=== PATIENT | female | born 1940 | race Caucasian/White ===

== ENCOUNTER → 2017-04-10 11:17 | Outpatient (CLI) | payer OTHER, SELFPAY ==
[2017-04-10 16:24] LABS: AST(SGOT) 17 U/L (15-37); Alanine Aminotransfer ALT/SGPT 29 U/L (13-56); Albumin, Serum 3.5 g/dL (3.2-5.0); Alkaline Phosphatase 83 U/L (45-117); Anion Gap 10 (5-15); BUN 21 mg/dL (7-18); BUN/Creat Ratio 26.6 RATIO (10-20); Calcium,Total 8.9 mg/dL (8.5-10.1); Chloride 105 mmol/L (98-107); Cholesterol 170 mg/dL (200); Creatinine, Serum 0.79 mg/dL (0.55-1.02); EST Glomerular Filtration Rate 75 mL/min (>60); Est Glom Filt Rate - Afr Amer 90 mL/min (>60); Globulin 3.9 g/dL (2.2-4.2); Glucose 153 mg/dL (74-106); High Density Lipoprotein 46 mg/dL; Protein, Total 7.4 g/dL (6.4-8.2); Sodium Level 142 mmol/L (136-145); Triglycerides 133 mg/dL; Very Low Density Lipoprotein 27 mg/dL (5-40)
[2017-04-10 16:30] LABS: Microalbumin,Random Urine 71.7 mg/L (NO RANGE EST.); Microalbumin:Creatinine Ratio 113.6 mg/g CRE (<30 mg/g CRE)
== END ==
PROVIDERS: Family Provider Family Medicine; PCP Family Medicine; Visit Provider Family Medicine
DX: E11.9 Type 2 diabetes mellitus without complications (principal)
CPT/HCPCS: 36415; 80048; 80061; 80076; 82043; 82570

== ENCOUNTER → 2017-06-27 10:30 | Outpatient (CLI) | payer OTHER, SELFPAY ==
--- NOTE | 2017-06-27 10:32 | BI_ITS ---
MAMMOGRAPHY - BILATERAL SCREENING 3-D PIERRE SYNTHESIS REASON FOR EXAM: Female, 76 years old. Bilateral Screening 3-D tomosynthesis PERTINENT HISTORY: Mother with breast cancer at age 58. Maternal grandmother with breast cancer in her 80s. Niece with breast cancer in her 50s.. TECHNIQUE: 2-D mammograms and 3-D Pierre synthesis of the breast (s) were performed. CAD was performed. COMPARISON: February 27, 2016. FINDINGS: The breast composition is heterogeneously dense that can obscure small breast masses. No dense spiculated masses or suspicious microcalcifications are identified. No architectural distortion is identified. There is no skin thickening or retraction. There has been no significant change since the prior study. BI/SCREENING MAMM (CAD), BILAT IMPRESSION: No mammographic signs of malignancy. Routine yearly mammograms recommended. ASSESSMENT CATEGORY: BIRADS Category 1: Negative. A letter regarding these results will be sent to the patient by the facility within 30 days. FOLLOW UP RECOMMENDATION: Yearly follow up mammogram recommended. (A) Approximately 10% of breast cancers are not detected by mammography. A normal mammogram should not delay biopsy of a clinically suspicious abnormality. Electronically Signed: Manuelito Camarena MD at 12:17 EDT , Service support ,
== END ==
PROVIDERS: Family Provider Family Medicine; PCP Family Medicine; Visit Provider Family Medicine
DX: Z12.31 Encounter for screening mammogram for malignant neoplasm of breast (principal)
CPT/HCPCS: 77063; 77067

== ENCOUNTER 2017-06-30 07:50 | Day surgery (SDC) | payer OTHER, SELFPAY ==
--- NOTE | 2017-06-30 | IMM_PTH ---
PATIENT: VIPUL WEBER LOC: EN U#:[id number] AGE/SX: 76/F ROOM: RE06/30/[address]: Dr. Ann Barry MD : 1940 BED: DIS: 06/30/2017 SPEC #: [id number] RECD: 07/02/17 11:20 STATUS: WILL RERosa M #: [id number] RAMIRO: 06/30/17 00:[address]: Ann Barry DEPT: IMMUNOHISTOCHEMISTRY RECD BY: Rhina Chavira ENTERED: 07/02/17 11:21 SP TYPE: IMMUNO OTHR DR: Dr. Elvin Scott MD Tissues: A - Pylorus B - Stomach, NOS Procedures: H Pylori (initial) PHYSICIAN & INSTITUTION [place] [id number] SPECIMEN INFORMATION: Tissue Source: A ? 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 Localization is made via biotin free immunoperoxidase method. Appropriate controls are performed and reacted as expected. Results on target cell population are indicated in the following table: RESULTS: ANTIBODY / CLONE RESULT Block A H Pylori (polyclonal) negative Block B H Pylori (polyclonal) negative These tests were developed and their performance characteristics determined by [facility]. They may not have been cleared or approved by the U.S. Food and Drug Administration. The FDA has determined that such clearance or approval is not necessary. INTERPRETATION: A. Pylorus lesion, biopsy: Negative for Helicobacter pylori organisms. B. Antrum, biopsy: Negative for Helicobacter pylori organisms. SJ:fernando 07/03/17
[2017-06-30 08:13] VITALS: BP 162/73; PULSE 72; RESP 16; TEMP 36.3; O2SAT 99; BMI 35.3
[2017-06-30 08:25] LABS: Bedside Glucose 196 mg/dL (70-110)
--- NOTE | 2017-06-30 09:00 | EGD_PTH ---
PATIENT: VIPUL WEBER LOC: EN U#:[id number] AGE/SX: 76/F ROOM: RE06/30/[address]: Dr. Ann Brary MD : 1940 BED: DIS: 06/30/2017 SPEC #: [id number] RECD: 06/30/17 15:19 STATUS: WILL EBEN #: [id number] RAMIRO: 06/30/17 09:[address]: Ann Barry DEPT: SURGICAL PATHOLOGY RECD BY: Erlin Velazquez ENTERED: 07/01/17 08:09 SP TYPE: EGD BIOPSY OT DR: Dr. 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 Pylori and path, C - Gastric Polyp 1 cm, D ? GE junction biopsy MICROSCOPIC DIAGNOSIS A. Pylorus, biopsy: Mild gastritis. B. Antrum, biopsy: Mild gastritis. C. Gastric polyp, biopsy: Consistent with fundic gland polyp. D. GE junction, biopsy: Fragments of gastroesophageal mucosa with mild chronic inflammation. Intestinal metaplasia (goblet cell metaplasia) is not identified. See comment. SJ:fernando 07/02/17 COMMENT A & B. The results of immunohistochemistry for Helicobacter pylori will be reported separately ([id number]). D. The specimen predominantly consists of gastric mucosa. Alcian blue/PAS stain with matched control is used in the evaluation of the specimen. MICROSCOPIC DESCRIPTION Slides are reviewed. A & B. The specimen shows fragments of gastric mucosa with chronic inflammatory cell infiltrates in the lamina propria consisting of lymphocytes and plasma cells, consistent with mild chronic gastritis. GROSS DESCRIPTION A - Received in fixative is one container labeled with the patient's name and designated pylorus. The specimen consists of one irregular fragment of light dinh soft tissue that measures 0.3 x 0.2 x 0.1 cm. The specimen is totally submitted in one cassette. B - Received in fixative is one container labeled with the patient's name and designated antrum. The specimen consists of one irregular fragment of light dinh soft tissue that measures 0.5 x 0.3 x 0.1 cm. The specimen is totally submitted in one cassette. C - Received in fixative is one container labeled with the patient's name and designated gastric polyp. The specimen consists of a piece of dinh-pink polyp measuring 0.5 x 0.5 x 0.2 cm. The specimen is totally submitted in one cassette. D - Received in fixative is one container labeled with the patient's name and designated GE junction. The specimen consists of two irregular fragments of dinh soft tissue that in aggregate measure 0.5 x 0.5 x 0.1 cm. The specimen is totally submitted in one cassette. / RY:rg 07/01/17 TC:3 CPT: 79207 x4, 40721
[2017-06-30 09:50] VITALS: BP 134/49; BP 162/73; PULSE 69; RESP 17; TEMP 35.9; O2SAT 98
[2017-06-30 09:55] VITALS: BP 142/58; BP 162/73; PULSE 69; RESP 16; O2SAT 99
[2017-06-30 10:00] VITALS: BP 156/49; BP 162/73; PULSE 67; RESP 16; O2SAT 97
[2017-06-30 10:06] VITALS: BP 162/73; BP 171/59; PULSE 67; RESP 16; TEMP 35.9; O2SAT 96
--- NOTE | 2017-06-30 10:07 | OP.PCM_ITS ---
Report of Operation Date of Procedure: 06/30/17 Pre-Operative Diagnosis: GERD, hx barretts, epigastric pain, hx of colon polyp Post-Operative Diagnosis: inflammation/lesion at pylorus, gastritis/GERD, gastric polyps, HH, extensive diverticulosis throughout the colon, circum. ext hemorrhoid, internal at 10:00 (left) grade I Surgery/Procedure Performed:: EGD with snare polypectomy, cold forceps biopsy, colonoscopy Type of Anesthesia:: MAC Anesthesiologist: Noah Bacon Specimen's removed: 1. inflammation/Lesion at pylorus, 2. Antral biopsy, 3. Gastric polyp anterior stomach body, 4. GE junction Estimated Blood Loss (mL): Minimal Description of Procedure: Procedure: EGD with snare polypectomy After obtaining informed consent, the endoscope was passed under direct visualization. Throughout the procedure, patient's blood pressure, pulse, oxygen saturations were monitored continuously by anesthesia. The endoscope was introduced through the mouth and advanced to the 2nd part of the duodenum. The upper GI endoscopy was accomplished without difficulty. Patient tolerated procedure well. Findings: Small hiatal hernia was present. Irritated inflamed lesion noted at the pylorus this was biopsied with cold forceps biopsies. Patient also had erythematous mucosa found gastric antrum. There also multiple fundic gland gastric polyps and one on the anterior body which was not as smooth and conformed as the other polyps and was removed with snare biopsy. Patient's GE junction only had mild change in a couple biopsies were taken of this area due to previous history of Odell's. There was noted to be bile reflux in the stomach. Biopsies were taken with cold biopsy for histology. Estimated blood loss was minimal. The duodenum was normal. Impression: 1. Small hiatal hernia 2. Erythematous mucosa in the antrum and inflammation/lesion at pylorus. Biopsied. 3. Gastric polyps. Polypectomy of 1. 4. GERD/history of Odell's per previous scope notes; multiple biopsy at the GE junction 5. Normal examined duodenum Recommendations: Await biopsies Continue omeprazole 40 mg twice daily Will start Carafate 1 g p.o. 4 times daily 1 hour before meals and at bedtime ? 1 month Procedure: Colonoscopy After reviewing the risks benefits, the patient was deemed in satisfactory condition to undergo procedure. After obtaining informed consent, the scope was passed under direct visualization. Throughout the procedure, the patient's blood pressure pulse and position saturations were monitored continuously anesthesia. The colonoscope was introduced through the anus and advanced to the cecum, identified by the appendiceal orifice, IC valve and transillumination. The colonoscopy was performed without difficulty. The patient tolerated procedure well. Quality of bowel prep was adequate. Findings: The perianal and digital rectal exam showed circumferential external hemorrhoids with 1 internal hemorrhoid at 10:00 which was a grade 1 Extensive diverticulosis was noted throughout the colon otherwise the colon ( entire examined portion) appeared normal. Retroflexed view of the distal rectum and anal verge small internal hemorrhoid grade 1. Impression: 1. Diverticulosis throughout the colon 2. Vaginal external hemorrhoids, mild internal hemorrhoid at 10:00 (left) Recommendations: Repeat colonoscopy in 7 years for screening purposes to the extensive diverticulosis as well as adequate prep - Complications none
[2017-06-30 10:20] VITALS: BP 162/73
== END 2017-06-30 10:49 | disposition home or self-care (01) ==
LOC: EN 07:51 → AC 07:53
PROVIDERS: Family Provider Family Medicine; PCP Family Medicine; Visit Provider Surgery
PROC: 0DJD8ZZ Inspection of Lower Intestinal Tract, Via Natural or Artificial Opening Endoscopic (ICD-10-PCS; CPT 45378; principal; 2017-06-30 08:55)
DX: Z12.11 Encounter for screening for malignant neoplasm of colon (principal); K29.70 Gastritis, unspecified, without bleeding; K31.7 Polyp of stomach and duodenum; K44.9 Diaphragmatic hernia without obstruction or gangrene; K57.30 Diverticulosis of large intestine without perforation or abscess without bleeding; K64.0 First degree hemorrhoids; K64.4 Residual hemorrhoidal skin tags; K21.9 Gastro-esophageal reflux disease without esophagitis; Z87.19 Personal history of other diseases of the digestive system; E11.9 Type 2 diabetes mellitus without complications; I10 Essential (primary) hypertension; G47.33 Obstructive sleep apnea (adult) (pediatric); Z87.891 Personal history of nicotine dependence; Z79.84 Long term (current) use of oral hypoglycemic drugs; Z79.899 Other long term (current) drug therapy
CPT/HCPCS: 44377; 45378; 82962; 88305; 88313; 88342; J7120

== ENCOUNTER → 2017-10-13 11:12 | Outpatient (CLI) | payer OTHER, SELFPAY ==
[2017-10-13 12:56] LABS: Microalbumin,Random Urine 70.9 mg/L (NO RANGE EST.); Microalbumin:Creatinine Ratio 110.4 mg/g CRE (<30 mg/g CRE)
[2017-10-13 13:20] LABS: AST(SGOT) 14 U/L (15-37); Alanine Aminotransfer ALT/SGPT 24 U/L (13-56); Albumin, Serum 3.5 g/dL (3.2-5.0); Alkaline Phosphatase 82 U/L (45-117); Anion Gap 8 (5-15); BUN 15 mg/dL (7-18); BUN/Creat Ratio 17.8 RATIO (10-20); Bilirubin, Direct 0.11 mg/dL (0.00-0.30); Chloride 106 mmol/L (98-107); Cholesterol 173 mg/dL (200); Creatinine, Serum 0.84 mg/dL (0.55-1.02); EST Glomerular Filtration Rate 69 mL/min (>60); Est Glom Filt Rate - Afr Amer 84 mL/min (>60); Globulin 4.2 g/dL (2.2-4.2); Glucose 128 mg/dL (74-106); High Density Lipoprotein 47 mg/dL; Potassium 3.6 mmol/L (3.5-5.1); Protein, Total 7.7 g/dL (6.4-8.2); Sodium Level 142 mmol/L (136-145); Triglycerides 186 mg/dL; Very Low Density Lipoprotein 37 mg/dL (5-40)
== END ==
PROVIDERS: Family Provider Family Medicine; PCP Family Medicine; Visit Provider Family Medicine
DX: E11.9 Type 2 diabetes mellitus without complications (principal)
CPT/HCPCS: 36415; 80048; 80061; 80076; 82043; 82570

== ENCOUNTER → 2017-11-06 13:58 | Outpatient (CLI) | payer OTHER, SELFPAY | PROVIDERS: Family Provider Family Medicine; PCP Family Medicine; Visit Provider Family Medicine | DX: M79.675 Pain in left toe(s) (principal) | CPT/HCPCS: 73660 ==

== ENCOUNTER → 2018-01-14 15:59 | Outpatient (CLI) | payer OTHER, SELFPAY ==
[2018-01-14 18:05] LABS: AST(SGOT) 12 U/L (15-37); Alanine Aminotransfer ALT/SGPT 29 U/L (13-56); Albumin, Serum 3.4 g/dL (3.2-5.0); Alkaline Phosphatase 106 U/L (45-117); Anion Gap 8 (5-15); BUN 21 mg/dL (7-18); BUN/Creat Ratio 25.1 RATIO (10-20); Bilirubin, Direct 0.06 mg/dL (0.00-0.30); Calcium,Total 8.5 mg/dL (8.5-10.1); Chloride 107 mmol/L (98-107); Cholesterol 153 mg/dL (200); Creatinine, Serum 0.84 mg/dL (0.55-1.02); EST Glomerular Filtration Rate 70 mL/min (>60); Est Glom Filt Rate - Afr Amer 85 mL/min (>60); Globulin 3.7 g/dL (2.2-4.2); Glucose 148 mg/dL (74-106); High Density Lipoprotein 45 mg/dL; Potassium 3.9 mmol/L (3.5-5.1); Protein, Total 7.1 g/dL (6.4-8.2); Sodium Level 143 mmol/L (136-145); Triglycerides 183 mg/dL; Very Low Density Lipoprotein 37 mg/dL (5-40)
[2018-01-14 18:10] LABS: Vitamin D,25 Hydroxy 13.6 ng/mL (29.95-100.01)
[2018-01-14 18:26] LABS: Microalbumin:Creatinine Ratio 263.2 mg/g CRE (<30 mg/g CRE)
== END ==
PROVIDERS: Family Provider Family Medicine; PCP Family Medicine; Visit Provider Family Medicine
DX: E11.9 Type 2 diabetes mellitus without complications (principal); E55.9 Vitamin D deficiency, unspecified
CPT/HCPCS: 36415; 80048; 80061; 80076; 82043; 82306; 82570

== ENCOUNTER → 2018-07-08 16:19 | Outpatient (CLI) | payer OTHER, SELFPAY ==
[2018-07-08 18:39] LABS: ALB/GLOB Ratio 1.2 RATIO (0.9-2.4); AST(SGOT) 14 U/L (15-37); Alanine Aminotransfer ALT/SGPT 23 U/L (13-56); Albumin, Serum 3.8 g/dL (3.2-5.0); Alkaline Phosphatase 99 U/L (45-117); Anion Gap 6 (5-15); BUN 19 mg/dL (7-18); BUN/Creat Ratio 21.1 RATIO (10-20); Calcium,Total 9.1 mg/dL (8.5-10.1); Chloride 107 mmol/L (98-107); EST Glomerular Filtration Rate 64 mL/min (>60); Est Glom Filt Rate - Afr Amer 78 mL/min (>60); Globulin 3.2 g/dL (2.2-4.2); Glucose 126 mg/dL (74-106); Potassium 4.3 mmol/L (3.5-5.1); Sodium Level 142 mmol/L (136-145)
== END ==
PROVIDERS: Family Provider Family Medicine; PCP Family Medicine; Referring Provider Family Medicine; Visit Provider Family Medicine
DX: E11.9 Type 2 diabetes mellitus without complications (principal)
CPT/HCPCS: 36415; 80053

== ENCOUNTER → 2018-07-13 12:21 | Outpatient (CLI) | payer OTHER, SELFPAY ==
--- NOTE | 2018-07-13 12:22 | BI_ITS ---
MAMMOGRAPHY - BILATERAL SCREENING REASON FOR EXAM: Female, 78 years old. Routine annual screening examination. PERTINENT HISTORY: Mother with breast cancer. Grandmother with breast cancer. TECHNIQUE: Digital bilateral breast joann (3D mammographic acquisition) in the CC and MLO projections. 2-D mediolateral oblique (MLO) and craniocaudad (CC) views of both breasts were obtained. CAD: Full Field Digital Mammography with Computer Added Detection was performed. COMPARISON: Comparison is made with prior study dated June 27, 2017 and February 27, 2016. FINDINGS: Breast Composition: The breasts are heterogeneously dense, which may obscure small masses. There are no dominant masses or suspicious calcifications. No other significant abnormalities are identified. There has been no significant change since the prior study. BI/SCREENING MAMM (CAD), BILAT IMPRESSION: Stable bilateral screening mammogram. Yearly follow-up mammogram recommended. (A) ASSESSMENT CATEGORY: BIRADS Category 1: Negative. A letter regarding these results will be sent to the patient by the facility within 30 days. Approximately 10% of breast cancers are not detected by mammography. A normal mammogram should not delay biopsy of a clinically suspicious abnormality. [id number] Electronically Signed: Johnathan Jacob, at 13:52 EDT , Service support ,
== END ==
PROVIDERS: Family Provider Family Medicine; PCP Family Medicine; Referring Provider Family Medicine; Visit Provider Family Medicine
DX: Z12.31 Encounter for screening mammogram for malignant neoplasm of breast (principal)
CPT/HCPCS: 77062; 77067; G0279

== ENCOUNTER → 2018-10-23 | Outpatient (CLI) | payer OTHER, SELFPAY ==
[2018-10-23 16:28] LABS: Anion Gap 8 (5-15); BUN 21 mg/dL (7-18); BUN/Creat Ratio 19.8 RATIO (10-20); Calcium,Total 8.8 mg/dL (8.5-10.1); Chloride 107 mmol/L (98-107); Creatinine, Serum 1.06 mg/dL (0.55-1.02); EST Glomerular Filtration Rate 53 mL/min (>60); Est Glom Filt Rate - Afr Amer 64 mL/min (>60); Glucose 197 mg/dL (74-106); Potassium 3.3 mmol/L (3.5-5.1); Sodium Level 142 mmol/L (136-145)
== END | disposition home or self-care (01) ==
LOC: MFPLAB 14:31
PROVIDERS: Family Provider Family Medicine; PCP Family Medicine; Referring Provider Family Medicine; Visit Provider Family Medicine
DX: E11.9 Type 2 diabetes mellitus without complications (principal)
CPT/HCPCS: 36415; 80048

== ENCOUNTER → 2019-01-14 | Outpatient (CLI) | payer OTHER, SELFPAY ==
[2019-01-14 12:47] LABS: Anion Gap 7 (5-15); BUN 20 mg/dL (7-18); BUN/Creat Ratio 26.1 RATIO (10-20); Calcium,Total 8.9 mg/dL (8.5-10.1); Chloride 107 mmol/L (98-107); Creatinine, Serum 0.76 mg/dL (0.55-1.02); EST Glomerular Filtration Rate 77 mL/min (>60); Est Glom Filt Rate - Afr Amer 93 mL/min (>60); Glucose 156 mg/dL (74-106); Potassium 3.5 mmol/L (3.5-5.1); Sodium Level 141 mmol/L (136-145)
== END | disposition home or self-care (01) ==
LOC: MFPLAB 11:01
PROVIDERS: Family Provider Family Medicine; PCP Family Medicine; Referring Provider Family Medicine; Visit Provider Family Medicine
DX: E11.9 Type 2 diabetes mellitus without complications (principal)
CPT/HCPCS: 36415; 80048

== ENCOUNTER → 2019-07-22 11:31 | Outpatient (CLI) | payer OTHER, SELFPAY ==
[2019-07-22 15:54] LABS: Anion Gap 6 (5-15); BUN 20 mg/dL (7-18); BUN/Creat Ratio 24.8 RATIO (10-20); Calcium,Total 8.7 mg/dL (8.5-10.1); Chloride 106 mmol/L (98-107); Cholesterol 182 mg/dL (200); Creatinine, Serum 0.81 mg/dL (0.55-1.02); EST Glomerular Filtration Rate 72 mL/min (>60); Est Glom Filt Rate - Afr Amer 88 mL/min (>60); Glucose 175 mg/dL (74-106); High Density Lipoprotein 45 mg/dL; Potassium 3.5 mmol/L (3.5-5.1); Sodium Level 139 mmol/L (136-145); Triglycerides 174 mg/dL; Very Low Density Lipoprotein 35 mg/dL (5-40)
== END ==
PROVIDERS: PCP Family Medicine; Referring Provider Family Medicine; Visit Provider Family Medicine
DX: E11.9 Type 2 diabetes mellitus without complications (principal)
CPT/HCPCS: 36415; 80048; 80061

== ENCOUNTER → 2019-07-29 12:19 | Outpatient (CLI) | payer OTHER, SELFPAY ==
--- NOTE | 2019-07-29 12:24 | BI_ITS ---
MAMMOGRAPHY - BILATERAL SCREENING REASON FOR EXAM: Female, 79 years old. Routine annual screening examination. PERTINENT HISTORY: Mother with breast cancer. Grandmother with breast cancer. TECHNIQUE: Digital bilateral breast pierre (3D mammographic acquisition) in the CC and MLO projections. 2-D mediolateral oblique (MLO) and craniocaudad (CC) views of both breasts were obtained. CAD: Full Field Digital Mammography with Computer Added Detection was performed. COMPARISON: Comparison is made with prior study dated July 13, 2018 and June 28, 2007 FINDINGS: Breast Composition: The breasts are heterogeneously dense, which may obscure small masses. There are no dominant masses or suspicious calcifications. Stable benign-appearing bilateral axillary lymph nodes. No other significant abnormalities are identified. There has been no significant change since the prior study. BI/SCREEN MAMM (CAD) W/PIERRE BILAT IMPRESSION: Stable bilateral screening mammogram. Yearly follow-up mammogram recommended. (A) ASSESSMENT CATEGORY: BIRADS Category 2: Benign. A letter regarding these results will be sent to the patient by the facility within 30 days. Approximately 10% of breast cancers are not detected by mammography. A normal mammogram should not delay biopsy of a clinically suspicious abnormality. [id number] Electronically Signed: Johnathan Jacob, at 14:08 EDT , Service support ,
== END ==
PROVIDERS: PCP Family Medicine; Referring Provider Family Medicine; Visit Provider Family Medicine
DX: Z12.31 Encounter for screening mammogram for malignant neoplasm of breast (principal)
CPT/HCPCS: 77063; 77067

== ENCOUNTER → 2020-01-20 11:03 | Outpatient (CLI) | payer OTHER, SELFPAY ==
[2020-01-20 12:44] LABS: Anion Gap 4 (5-15); BUN 14 mg/dL (7-18); BUN/Creat Ratio 17.3 RATIO (10-20); Chloride 105 mmol/L (98-107); Cholesterol 199 mg/dL (200); Creatinine, Serum 0.81 mg/dL (0.55-1.02); EST Glomerular Filtration Rate 72 mL/min (>60); Est Glom Filt Rate - Afr Amer 87 mL/min (>60); Glucose 170 mg/dL (74-106); High Density Lipoprotein 47 mg/dL; Potassium 3.9 mmol/L (3.5-5.1); Sodium Level 140 mmol/L (136-145); Triglycerides 195 mg/dL; Very Low Density Lipoprotein 39 mg/dL (5-40)
== END ==
PROVIDERS: PCP Family Medicine; Visit Provider Family Medicine
DX: E11.9 Type 2 diabetes mellitus without complications (principal)
CPT/HCPCS: 36415; 80048; 80061

== ENCOUNTER → 2020-07-19 15:36 | Outpatient (CLI) | payer MEDICARE, OTHER, SELFPAY ==
--- NOTE | 2020-07-19 15:41 | BI_ITS ---
MAMMOGRAPHY - BILATERAL SCREENING 3-D TOMOSYNTHESIS REASON FOR EXAM: Female, 80 years old. Routine screening PERTINENT HISTORY: Mother and grandmother with breast cancer.. TECHNIQUE: 2-D mammograms and 3-D Tomosynthesis of the breast (s) were performed. CAD was performed. COMPARISON: 07/29/2019 FINDINGS: The breast composition is heterogeneously dense that can obscure small breast masses. Scattered benign calcifications are seen. No dense spiculated masses or suspicious microcalcifications are identified. No architectural distortion is identified. There is no skin thickening or retraction. There has been no significant change since the prior study. BI/SCRN MAMM (CAD)W/PIERRE BILAT IMPRESSION: No mammographic signs of malignancy. Routine yearly mammograms recommended. ASSESSMENT CATEGORY: BIRADS Category 2: Benign. A letter regarding these results will be sent to the patient by the facility within 30 days. FOLLOW UP RECOMMENDATION: Yearly follow up mammogram recommended. (A) Approximately 10% of breast cancers are not detected by mammography. A normal mammogram should not delay biopsy of a clinically suspicious abnormality. Electronically Signed: Brad Hsieh MD at 7:43 EDT , Service support ,
== END ==
PROVIDERS: PCP Family Medicine; Referring Provider Family Medicine; Visit Provider Family Medicine
DX: Z12.31 Encounter for screening mammogram for malignant neoplasm of breast (principal)
CPT/HCPCS: 77063; 77067

== ENCOUNTER → 2020-07-24 14:00 | Outpatient (CLI) | payer MEDICARE, OTHER, SELFPAY ==
[2020-07-24 18:11] LABS: Absolute Lymphocyte Count 2.37 X10^3/uL (0.83-4.51); Absolute Neutrophil Count 6.2 X10^3/uL (2.0-7.7); Basophil# 0.05 X10^3/uL; Basophil% 0.5 % (0-1); Eosinophil# 0.08 X10^3/uL; Eosinophils% 0.8 % (0-5); Hematocrit 37.6 % (37-47); Hemoglobin 12.7 g/dL (12.0-15.0); Lymphocyte # 2.37 X10^3/ul (0.83-4.51); Mean Corp Hgb Conc 33.8 g/dL (32-36); Mean Corpuscular Volume 88.9 fL (81-99); Mean Platelet Vol. 11.7 fl (6.2-12.0); Monocyte# 0.79 X10^3/uL; Monocyte% 8.3 % (0-10); NRBC Flagged by Analyzer 0 % (0-5); Neutrophil # 6.16 X10^3/uL (2.7-7.7); Neutrophil % 65.2 % (47-70); Platelet Count 348 K/mm3 (150-450); RBC Distribution Width CV 12.5 % (11.6-14.6); RBC Distribution Width SD 40.8 fl (35.1-43.9); Red Blood Count 4.23 M/mm3 (4.2-5.4); White Blood Count 9.5 K/mm3 (4.4-11.0)
[2020-07-24 18:35] LABS: Anion Gap 7 (5-15); BUN 18 mg/dL (7-18); BUN/Creat Ratio 19.9 RATIO (10-20); Calcium,Total 9.6 mg/dL (8.5-10.1); Chloride 102 mmol/L (98-107); EST Glomerular Filtration Rate 63 mL/min (>60); Est Glom Filt Rate - Afr Amer 77 mL/min (>60); Glucose 151 mg/dL (74-106); Sodium Level 135 mmol/L (136-145)
== END ==
PROVIDERS: PCP Family Medicine; Visit Provider Nurse Practitioner Family
DX: K57.92 Diverticulitis of intestine, part unspecified, without perforation or abscess without bleeding (principal)
CPT/HCPCS: 36415; 80048; 85025

== ENCOUNTER 2020-11-30 13:55 | Outpatient (RCR) | payer MEDICARE, OTHER, SELFPAY ==
[2020-11-30 14:39] VITALS: BP 188/78; PULSE 81; RESP 16; TEMP 35.9; BMI 33.5
--- NOTE | 2020-11-30 16:32 | PCM.WC.HP ---
History of Present Illness Date of Service: 11/30/20 Chief Complaint: Pressure injury to right buttock History of Wound: Patient is an 80-year-old female presenting to the wound center for treatment of pressure injury to her right buttock. She has a past medical history as listed above. The patient states this wound has been present intermittently for the past 5 years. She states it feels painful only when sitting, and has tried Neosporin and gauze for treatment in the past, but it is not healing this time which prompted a referral to the wound center from her PCP. The patient sleeps in a recliner nightly due to LUCERO, but she refuses to wear her CPAP mask due to anxiety. She states she has a gel cushion but does not use it, and instead uses an eggcrate. She has a past medical history of type 2 diabetes with her last A1c at 7.3. She states she drinks Ensure protein drinks at least 1/day. She denies any systemic or localized signs of infection at this time. Past medical, family, and social history reviewed and not pertinent to the current visit and all other systems reviewed and negative with exception of those listed above. [facility] Medical History (Updated 11/30/20 @ 16:52 by Yunier Mcbride NP, ORDAINED MINISTER-C) Diabetes Diarrhea GERD (gastroesophageal reflux disease) htn IBS (irritable bowel syndrome) Laparoscopic cholecystectomy Overactive bladder Pressure injury of right buttock, stage 2 Type 2 diabetes mellitus Home Medications L. gasseri-B. bifidum-B longum 1 ea PO DAILY 05/02/16 [History Last Taken Unknown] lisinopril 2.5 mg PO DAILY 05/02/16 [History Last Taken 06/30/17 06:00] omeprazole 40 mg PO BID 05/02/16 [History Last Taken Unknown] psyllium husk (aspartame) 1 packet PO QHS 05/02/16 [History Last Taken Unknown] timolol maleate 1 drp EACH EYE BID 05/02/16 [History Last Taken Unknown] glimepiride 2 mg tablet 4 mg PO DAILY tab 08/22/17 [History Last Taken Unknown] Hydrocortisone 2.5% / Lidocaine 5% ointment (cmpd) #1 ea 08/01/20 [Rx Last Taken Unknown] Hydrocortisone 2.5%/lidocaine 5% suppository (cmpd) #30 ea 08/01/20 [Rx Last Taken Unknown] cholecalciferol (vitamin D3) [Vitamin D3] 125 mcg PO DAILY 11/30/20 [History Last Taken Unknown] dicyclomine 20 mg PO BID 11/30/20 [History Last Taken Unknown] tolterodine 4 mg PO DAILY 11/30/20 [History Last Taken Unknown] Allergy/AdvReac Type Severity Reaction Status Date / Time cefuroxime [From Ceftin] AdvReac Itching Verified 08/01/20 10:55 metformin AdvReac Diarrhea Verified 11/30/20 14:54 oxybutynin AdvReac Swelling Verified 11/30/20 14:54 Surgical History (Updated 08/01/20 @ 10:52 by Frieda Fowler) H/O total hysterectomy with bilateral salpingo-oophorectomy (BSO) S/P cataract extraction S/P laparoscopic cholecystectomy Status post mastoidectomy Social History (Updated 08/01/20 @ 10:53 by Frieda Fowler) Smoking Status: Former smoker alcohol intake: current alcohol intake frequency: holidays/special occasions only ROS Constitutional Constitutional: Reports systems reviewed and no addt'l complaints, except as documented Eyes Eyes: Reports systems reviewed and no addt'l complaints, except as documented ENT HEENT: Reports systems reviewed and no addt'l complaints, except as documented Cardiovascular Cardiovascular: Reports systems reviewed and no addt'l complaints, except as documented Respiratory/Chest Respiratory/Chest: Reports systems reviewed and no addt'l complaints, except as documented Gastrointestinal Gastrointestinal: Reports systems reviewed and no addt'l complaints, except as documented Genitourinary Genitourinary: Reports systems reviewed and no addt'l complaints, except as documented Musculoskeletal Musculoskeletal: Reports systems reviewed and no addt'l complaints, except as documented Integumentary Integumentary: Reports systems reviewed and no addt'l complaints, except as documented Neurologic Neurologic: Reports systems reviewed and no addt'l complaints, except as documented Psychiatric Psychiatric: Reports systems reviewed and no addt'l complaints, except as documented Endocrine Endocrinology: Reports systems reviewed and no addt'l complaints, except as documented Hematologic/Lymphatic Hematologic/Lymphatic: Reports systems reviewed and no addt'l complaints, except as documented Allergic/Immunologic Allergic/Immunologic: Reports systems reviewed and no addt'l complaints, except as documented Vital Signs Vital Signs Vital Signs: 11/30/20 14:39 Temperature 96.6 F L Temperature Source Temporal Pulse Rate 81 Respiratory Rate 16 Blood Pressure 188/78 H Blood Pressure Mean 114 Blood Pressure Source Monitor Blood Pressure Position Sitting Blood Pressure Location Left Arm Oxygen Delivery Method Room Air Weight Weight: 195 lb Body Mass Index (BMI) 33.5 Physical Exam Const alert, oriented x3, no apparent distress, healthy appearing and well nourished General Appearance: cooperative Exam Limitations: no limitations HEENT normocephalic Head and Scalp: normal to inspection Mouth: oral and palatal mucosa normal Eyes General Eye: normal appearance of both eyes Resp normal respiratory effort, normal air movement and no use of accessory muscles Effort and Inspection: able to speak in complete sentences Auscultation: clear to auscultation bilaterally Cardio regular rate, regular rhythm, S1 normal heart sound, S2 normal heart sound, no murmurs and peripheral pulses 2+ throughout Palpation: normal PMI Rate: regular rate Heart Sounds: S1 normal and S2 normal GI normal to inspection, nondistended, normoactive bowel sounds, soft to palpation, non-tender and non-distended Palpation: soft Extremity normal to inspection and full ROM General Extremity: normal exam except as noted Skin Wound Narrative: Stage 2 pressure injury to right buttock with Adherant slough, no signs of infection at this time Neuro oriented x3 and moves all extremities Sensorium / Orientation: awake, alert, oriented to person, oriented to place and oriented to time Psych mental status grossly normal, thought process normal and denies hallucinations Appearance: grossly normal Attitude: calm Activity / Motor Behavior: appropriate eye contact Speech: normal speech Thought Process: normal thought process Thought Content: normal thought content Attention / Concentration: attention grossly intact Insight: insight good Judgement: judgement good Debridement Note Debridement Note Wound debrided: Stage II pressure injury right buttock Laterality: Right Type of Debridement: Excisional debridement Anesthesia Used: 5% Lidocaine Gel Depth: in the subcutaneous layer Percentage of wound debrided: 100 Instrument Used: 3mm curette Tissue Removed: Slough and devitalized tissue Severity: Fat Layer Exposed Amount of bleeding with debridement: Mild Bleeding Controlled with: Pressure Patient tolerated procedure: Patient tolerated procedure well Post-Debridement Measurements and Additional Note: Post-Debridement Measurements/Treatment JUAN C - Nurse 1 - General Ulcer Assessment Start: 11/30/20 14:35 Freq: Status: Active Protocol: PALOMO Activity Type Activity Date Activity User E-Sign Co-Sign Detail Recorded Client Recorded Date Recorded By Document 11/30/20 14:39 [facility] [id number] 11/30/20 14:49 [facility] 11/30/20 14:39 - Today's Visit Information Type of service Initial Visit Arrival Mode Ambulatory Transfer Assistance None Patient Identification Verified (Name & Yes ) Patient Requires Transmission-Based No Precautions Finger Stick Blood Sugar(mg/dl) (if 171 indicated): Blood Sugar Stated by Patient Height and Weight Height 5 ft 4 in Weight 195 lb Weight in Pounds 195.0 lbs Weight Measurement Method Stated by Patient Body Mass Index (BMI) 33.5 BMI Classification Obese BSA - Meenakshi 1.94 Vital Signs Temperature (97.8 F-99.1 F) 96.6 F L Temperature Source Temporal Pulse Rate (60-100) 81 Pulse Location Monitor Respiratory Rate (12-18) 16 Respiratory rate source Observation Oxygen Delivery Method Room Air Blood Pressure (90/60-120/80) 188/78 H Blood Pressure Mean 114 Source Monitor Position Sitting Blood Pressure Location Left Arm History Since Last Visit- (Skip if this is Patient's initial visit) Left Footwear Regular Shoe Right Footwear Regular Shoe Communication Assessment Preferred language [place] Promotional Marketing Agent Required No Able to Read Yes Able to Write Yes Communication Tools None Right Hearing Abillity Normal Left Hearing Abillity Normal Visual Assistive Devices Glasses Teaching Assessment Preferences Verbal,Written, Audio/Visual, Demonstration Barriers to Learning None Readiness To Learn Excellent Willingness to Engage in Self Management High Activies Readiness to Engage in Self Management High Activities Anxiety Level Calm Cooperation Cooperative Perception Coherent Interest in Health Problem Asks Questions Education Importance Acknowledges Need Does Patient Smoke tobacco or other No substances Smoking Status Former smoker Is Patient Diabetic Yes Culture/Yarsani/Regional Education Manager Cultural/Yarsani Needs that may affect No Treatment Plan Teaching: Wound Center *Welcome to the Wound Center -Person Taught Patient -Teaching Method Discussion -Response to teaching Verbalize understanding Welcome to the Wound Care Center [place] - Nurse 1 - General Ulcer Measurement Start: 11/30/20 14:35 Freq: Status: Active Protocol: Activity Type Activity Date Activity User E-Sign Co-Sign Detail Recorded Client Recorded Date Recorded By Document 11/30/20 14:39 [facility] [id number] 11/30/20 14:49 [facility] 11/30/20 14:39 Wound Center Nurse 1 #1- R BUTTOCK -Combined with other wound No -Current Size (cm) - Length 0.3 -Current Size (cm) - Width 0.3 -Current Size (cm) - Depth 0.1 -Total Square Cm 0.09 -Date of Last Picture (Recall this 11/30/20 field) -Photo Taken Yes -Epithelialization None Present -Tunneling No -Undermining/Tunneling No -Circular Undermining No -Exudate Amt None Present -Wound Margin Distinct, Outline Attached -Granulation Amt Large (67-100%) -Granulation Quality Red -Slough/Fibrin No -Necrosis Amt None Present (0 %) -Texture (Karin-wound Skin Appearance) Assessed, Scarring -Moisture (Karin-wound Skin Appearance) Assessed,Dry/ Scaly -Color (Karin-wound Skin Appearance) Assessed -Temperature (Karin-wound Skin No Abnormality Appearance) (Pt Warm) -Tenderness on Palpation (Karin-wound Yes Skin Appearance) -Ulcer Cleansing Rinsed/ Irrigated with Saline -Foul Odor after Cleansing No -Anesthetic Used 5% Lidocaine Gel WC - Nurse 2 - General Ulcer CM Notes Start: 11/30/20 14:35 Freq: Status: Active Protocol: Activity Type Activity Date Activity User E-Sign Co-Sign Detail Recorded Client Recorded Date Recorded By Document 11/30/20 15:13 MW [id number] 11/30/20 15:23 MW 11/30/20 15:13 Wound Center Nurse 2 -Time 15:14 -Correct Patient Yes -Correct Side, Site, Position Yes -Correct Procedure Yes -Procedure Performed Yes -Type of Procedure Debridement -Clinical Debridement Subcutaneous -Tissue Removed Subcutaneous -Post Debridement (cm) - Length 0.5 -Post Debridement (cm) - Width 0.5 -Post Debridement (cm) - Depth 0.1 -Total Square (Post) (cm) 0.25 -Area of Debridement (cm) - Length 0.5 -Area of Debridement (cm) - Width 0.5 -Total Square (Area) (cm) 0.25 -Tunneling No -Undermining/Tunneling No -Circular Undermining No -Wound/Ulcer Outcome Not Healed -Ulcer Cleansing Rinsed/ Irrigated with Saline -Foul Odor after Cleansing No -Bioengineered Tissue No -Bleeding Controlled with Pressure -Offloading No -Treatment Response Procedure Tolerated Well -Debridement - Subq, 1st 20sq cm Yes Pain Scale: 0-10 Numeric Is Patient Pain Free? Yes WC - Nurse 3 - General Ulcer D/C NN Start: 11/30/20 14:35 Freq: Status: Active Protocol: Activity Type Activity Date Activity User E-Sign Co-Sign Detail Recorded Client Recorded Date Recorded By Document 11/30/20 15:33 DL [id number] 11/30/20 15:34 DL 11/30/20 15:33 Wound Care Nurse 3 #1- R BUTTOCK -Ulcer Cleansing Rinsed/ Irrigated with Saline -Foul Odor after Cleansing No -Primary Dressing Applied Mepilex Border, NonAdherent Contact Layer, Promogran Halima Matter -Mepilex Border 1 -Promogran Halima Matter 1 Treatment Response Procedure Tolerated Well Pain Scale: 0-10 Numeric Is Patient Pain Free? Yes WC - Visit Discharge Discharge Condition Stable Ambulatory Status Ambulatory Transportation Private Auto Charges/Coding Visit Charges Office Visits / Consults: 54068 OV L4 Est Procedures Integumentary 111xxx-113xx: [id number] Dilia subq tissue 20 sq cm/< Assessment/Plan Assessment/Plan (1) Pressure injury of right buttock, stage 2: CODE(S): L89.312 - Pressure ulcer of right buttock, stage 2 (2) IBS (irritable bowel syndrome): CODE(S): K58.9 - Irritable bowel syndrome without diarrhea (3) Type 2 diabetes mellitus: CODE(S): E11.9 - Type 2 diabetes mellitus without complications (4) Overactive bladder: CODE(S): N32.81 - Overactive bladder PLAN: Debridement performed today in clinic as annotated above. Halima, Adaptic, and foam dressing applied. At home wound-care instructions: Daily application of Halima cover with Adaptic and foam dressing, Change dressing once daily or more frequently as needed due to contamination. Wash wounds daily with antibacterial soap and water, rinse and dry thoroughly before each dressing change. Compression: Not indicated Off-loading: The patient was instructed to avoid pressure and friction on the affected areas. Reposition every 2 hours at minimum. Avoid prolonged standing and/or dangling of legs. When seated, feet should be elevated at chest level. Frequent ambulation is encouraged. Diet: Patient encouraged to increase protein intake while taking caution to avoid high carbohydrate and/or sugar intake. Patient is not a smoker Labs/cultures/imaging: Cultures ordered and collected today. Routine baseline lab work held. Follow-up: Return to clinic in 1 week for re-evaluation. Return sooner or report to the emergency room should symptoms worsen, or new symptoms arise. Patient's blood pressure was significantly elevated today, not having any symptoms of hypertension. Instructed to follow-up with primary care. This note was generated with [employer] dictation software. It may contain incorrect words, spelling, and punctuation that were not noted in checking the note before signing. I have spent 35 minutes today reviewing labs, records, and history. Time includes coordinating care, interpretation of tests, and counseling the patient/family. This also includes time I spent with the patient for exam, treatment plan, and education as well as documenting clinical information in the electronic health record.
== END 2020-11-30 23:59 ==
LOC: WC 13:55
PROVIDERS: PCP Family Medicine; Visit Provider Nurse Practitioner Family
DX: L89.312 Pressure ulcer of right buttock, stage 2 (principal); K21.9 Gastro-esophageal reflux disease without esophagitis; E11.622 Type 2 diabetes mellitus with other skin ulcer; G47.33 Obstructive sleep apnea (adult) (pediatric); I10 Essential (primary) hypertension; Z79.899 Other long term (current) drug therapy; Z79.84 Long term (current) use of oral hypoglycemic drugs; Z87.891 Personal history of nicotine dependence; N32.81 Overactive bladder; K58.0 Irritable bowel syndrome with diarrhea
CPT/HCPCS: 11042; 87070; 87075; 87077; 87186; 87205; 99213; G0463

== ENCOUNTER 2020-12-07 14:30 | Outpatient (RCR) | payer MEDICARE, OTHER, SELFPAY ==
[2020-12-01 00:40] VITALS: BP 188/78; PULSE 81; RESP 16; TEMP 35.9; BMI 33.5
[2020-12-07 14:39] VITALS: BP 132/81; PULSE 62; TEMP 36.6; BMI 33.5
--- NOTE | 2020-12-07 15:19 | PN.PCM_ITS ---
History of Present Illness Date of Service: 12/07/20 Chief Complaint: Pressure injury to right buttock History of Wound: Patient is an 80-year-old female presenting to the wound center for treatment of pressure injury to her right buttock. She has a past medical history as listed above. The patient states this wound has been present intermittently for the past 5 years. She states it feels painful only when sitting, and has tried Neosporin and gauze for treatment in the past, but it is not healing this time which prompted a referral to the wound center from her PCP. The patient sleeps in a recliner nightly due to LUCERO, but she refuses to wear her CPAP mask due to anxiety. She states she has a gel cushion but does not use it, and instead uses an eggcrate. She has a past medical history of type 2 diabetes with her last A1c at 7.3. She states she drinks Ensure protein drinks at least 1/day. She denies any systemic or localized signs of infection at this time. Past medical, family, and social history reviewed and not pertinent to the current visit and all other systems reviewed and negative with exception of those listed above. Progress of Wound: Patient's wound is healed without any signs of infection at this time. No new concerns, wound cultures were reviewed and showed skin contaminants, clinically the wound is not appear infected Objective Data Objective Data Vital Signs: Vital Signs Temp Pulse Resp BP 97.9 F 62 16 132/81 H 12/07/20 14:39 12/07/20 14:39 12/01/20 00:40 12/07/20 14:39 Weight: 195 lb Body Mass Index (BMI) 33.5 Charges/Coding Visit Charges Office Visits / Consults: 04669 OV L3 Est Physical Exam Const alert, oriented x3, no apparent distress, healthy appearing and well nourished General Appearance: cooperative Exam Limitations: no limitations HEENT normocephalic Head and Scalp: normal to inspection Mouth: oral and palatal mucosa normal Eyes General Eye: normal appearance of both eyes Resp normal respiratory effort, normal air movement and no use of accessory muscles Effort and Inspection: able to speak in complete sentences Auscultation: clear to auscultation bilaterally Cardio regular rate, regular rhythm, S1 normal heart sound, S2 normal heart sound, no murmurs and peripheral pulses 2+ throughout Palpation: normal PMI Rate: regular rate Heart Sounds: S1 normal and S2 normal GI normal to inspection, nondistended, normoactive bowel sounds, soft to palpation, non-tender and non-distended Palpation: soft Extremity normal to inspection and full ROM General Extremity: normal exam except as noted Skin Wound Narrative: Stage 2 pressure injury to right buttock healed, no signs of infection at this time Neuro oriented x3 and moves all extremities Sensorium / Orientation: awake, alert, oriented to person, oriented to place and oriented to time Psych mental status grossly normal, thought process normal and denies hallucinations Appearance: grossly normal Attitude: calm Activity / Motor Behavior: appropriate eye contact Speech: normal speech Thought Process: normal thought process Thought Content: normal thought content Attention / Concentration: attention grossly intact Insight: insight good Judgement: judgement good Assessment/Plan Assessment/Plan (1) Pressure injury of right buttock, stage 2: CODE(S): L89.312 - Pressure ulcer of right buttock, stage 2 (2) IBS (irritable bowel syndrome): CODE(S): K58.9 - Irritable bowel syndrome without diarrhea (3) Type 2 diabetes mellitus: CODE(S): E11.9 - Type 2 diabetes mellitus without complications (4) Overactive bladder: CODE(S): N32.81 - Overactive bladder PLAN: Wound is healed without any signs of infection at this time. Adaptic, and foam dressing applied. At home wound-care instructions: Daily application Adaptic and foam dressing for wound protection for the next 1 to 2 weeks, Compression: Not indicated Off-loading: The patient was instructed to avoid pressure and friction on the affected areas. Reposition every 2 hours at minimum. Avoid prolonged standing and/or dangling of legs. When seated, feet should be elevated at chest level. Frequent ambulation is encouraged. Diet: Patient encouraged to increase protein intake while taking caution to avoid high carbohydrate and/or sugar intake. Patient is not a smoker Follow-up: Discharge from wound healing center today as wound is healed. Return sooner or report to the emergency room should symptoms worsen, or new symptoms arise. This note was generated with [employer] software. It may contain incorrect words, spelling, and punctuation that were not noted in checking the note before signing. I have spent 35 minutes today reviewing labs, records, and history. Time includes coordinating care, interpretation of tests, and counseling the patient/family. This also includes time I spent with the patient for exam, treatment plan, and education as well as documenting clinical information in the electronic health record.
== END 2020-12-07 15:09 | disposition home or self-care (01) ==
LOC: WC 14:30
PROVIDERS: PCP Family Medicine; Visit Provider Nurse Practitioner Family
DX: L89.312 Pressure ulcer of right buttock, stage 2 (principal); K58.9 Irritable bowel syndrome, unspecified; E11.9 Type 2 diabetes mellitus without complications; N32.81 Overactive bladder; G47.33 Obstructive sleep apnea (adult) (pediatric)
CPT/HCPCS: 99213; G0463

== ENCOUNTER → 2021-01-17 10:36 | Outpatient (CLI) | payer MEDICARE, OTHER, SELFPAY ==
[2021-01-17 13:15] LABS: Anion Gap 5 (5-15); BUN 16 mg/dL (7-18); Chloride 103 mmol/L (98-107); Cholesterol 178 mg/dL (200); Creatinine, Serum 0.73 mg/dL (0.55-1.02); EST Glomerular Filtration Rate 82 mL/min (>60); Est Glom Filt Rate - Afr Amer 99 mL/min (>60); Glucose 159 mg/dL (74-106); High Density Lipoprotein 44 mg/dL; Potassium 2.8 mmol/L (3.5-5.1); Sodium Level 139 mmol/L (136-145); Triglycerides 170 mg/dL; Very Low Density Lipoprotein 34 mg/dL (5-40)
== END ==
PROVIDERS: PCP Family Medicine; Referring Provider Family Medicine; Visit Provider Family Medicine
DX: E11.9 Type 2 diabetes mellitus without complications (principal)
CPT/HCPCS: 36415; 80048; 80061

== ENCOUNTER 2021-03-27 14:16 | Outpatient (CLI) | payer MEDICARE, OTHER, SELFPAY ==
[2021-03-27 17:54] LABS: ALB/GLOB Ratio 0.8 RATIO (0.9-2.4); AST(SGOT) 14 U/L (15-37); Alanine Aminotransfer ALT/SGPT 26 U/L (13-56); Albumin, Serum 3.5 g/dL (3.2-5.0); Alkaline Phosphatase 93 U/L (45-117); Anion Gap 8 (5-15); BUN 24 mg/dL (7-18); BUN/Creat Ratio 27.1 RATIO (10-20); Calcium,Total 9.5 mg/dL (8.5-10.1); Chloride 104 mmol/L (98-107); Creatinine, Serum 0.88 mg/dL (0.55-1.02); EST Glomerular Filtration Rate 65 mL/min (>60); Est Glom Filt Rate - Afr Amer 79 mL/min (>60); Globulin 4.6 g/dL (2.2-4.2); Glucose 183 mg/dL (74-106); Potassium 4.2 mmol/L (3.5-5.1); Protein, Total 8.1 g/dL (6.4-8.2); Sodium Level 135 mmol/L (136-145)
[2021-03-27 18:10] LABS: Hemoglobin A1c 7.7 % (3.8-5.6)
== END 2021-03-27 23:59 | disposition short-term general hospital (02) ==
LOC: MFPLAB 14:26
PROVIDERS: PCP Family Medicine; Referring Provider Family Medicine; Visit Provider Family Medicine
DX: E11.69 Type 2 diabetes mellitus with other specified complication (principal); E87.6 Hypokalemia
CPT/HCPCS: 36415; 80053; 83036; 83735

== ENCOUNTER 2021-05-16 10:05 | Outpatient (CLI) | payer MEDICARE, OTHER, SELFPAY ==
[2021-05-16 12:16] LABS: Absolute Lymphocyte Count 1.71 X10^3/uL (0.83-4.51); Absolute Neutrophil Count 7.6 X10^3/uL (2.0-7.7); Basophil# 0.06 X10^3/uL; Basophil% 0.6 % (0-1); Eosinophil# 0.22 X10^3/uL; Eosinophils% 2.1 % (0-5); Hemoglobin 11.9 g/dL (12.0-15.0); Lymphocyte # 1.71 X10^3/ul (0.83-4.51); Lymphocyte % 16.7 % (19-41); Mean Corpuscular Volume 88.5 fL (81-99); Mean Platelet Vol. 11.3 fl (6.2-12.0); Monocyte% 5.8 % (0-10); NRBC Flagged by Analyzer 0 % (0-5); Neutrophil # 7.64 X10^3/uL (2.7-7.7); Neutrophil % 74.5 % (47-70); Platelet Count 332 K/mm3 (150-450); RBC Distribution Width CV 13.6 % (11.6-14.6); RBC Distribution Width SD 43.7 fl (35.1-43.9); Red Blood Count 3.84 M/mm3 (4.2-5.4); White Blood Count 10.3 K/mm3 (4.4-11.0)
[2021-05-16 12:53] LABS: ALB/GLOB Ratio 0.8 RATIO (0.9-2.4); AST(SGOT) 14 U/L (15-37); Alanine Aminotransfer ALT/SGPT 25 U/L (13-56); Albumin, Serum 3.3 g/dL (3.2-5.0); Alkaline Phosphatase 82 U/L (45-117); Anion Gap 6 (5-15); BUN 22 mg/dL (7-18); Calcium,Total 8.8 mg/dL (8.5-10.1); Chloride 104 mmol/L (98-107); Creatinine, Serum 0.92 mg/dL (0.55-1.02); EST Glomerular Filtration Rate 62 mL/min (>60); Est Glom Filt Rate - Afr Amer 75 mL/min (>60); Globulin 3.9 g/dL (2.2-4.2); Glucose 226 mg/dL (74-106); Potassium 3.7 mmol/L (3.5-5.1); Protein, Total 7.2 g/dL (6.4-8.2); Sodium Level 137 mmol/L (136-145); Thyroid Stim Hormone (TSH) 2.22 uIU/mL (0.358-3.74)
== END 2021-05-16 23:59 | disposition home or self-care (01) ==
PROVIDERS: PCP Family Medicine; Referring Provider Family Medicine; Visit Provider Family Medicine
DX: R42 Dizziness and giddiness (principal); E11.69 Type 2 diabetes mellitus with other specified complication
CPT/HCPCS: 36415; 80053; 84443; 85025

== ENCOUNTER → 2021-07-09 | Outpatient (CLI) | payer MEDICARE, OTHER, SELFPAY ==
[2021-07-09 15:28] LABS: Absolute Lymphocyte Count 1.78 X10^3/uL (0.83-4.51); Absolute Neutrophil Count 6.4 X10^3/uL (2.0-7.7); Basophil# 0.06 X10^3/uL; Basophil% 0.7 % (0-1); Eosinophil# 0.12 X10^3/uL; Eosinophils% 1.3 % (0-5); Hemoglobin 12.2 g/dL (12.0-15.0); Lymphocyte # 1.78 X10^3/ul (0.83-4.51); Lymphocyte % 19.6 % (19-41); Mean Corp Hgb Conc 33.9 g/dL (32-36); Mean Corpuscular Volume 91.4 fL (81-99); Mean Platelet Vol. 11.5 fl (6.2-12.0); Monocyte# 0.64 X10^3/uL; Monocyte% 7.1 % (0-10); NRBC Flagged by Analyzer 0 % (0-5); Neutrophil # 6.43 X10^3/uL (2.7-7.7); Platelet Count 334 K/mm3 (150-450); RBC Distribution Width SD 40.4 fl (35.1-43.9); Red Blood Count 3.94 M/mm3 (4.2-5.4); White Blood Count 9.1 K/mm3 (4.4-11.0)
[2021-07-09 15:39] LABS: ALB/GLOB Ratio 0.9 RATIO (0.9-2.4); AST(SGOT) 15 U/L (15-37); Alanine Aminotransfer ALT/SGPT 24 U/L (13-56); Albumin, Serum 3.6 g/dL (3.2-5.0); Alkaline Phosphatase 80 U/L (45-117); Anion Gap 8 (5-15); BUN 22 mg/dL (7-18); BUN/Creat Ratio 23.8 RATIO (10-20); Calcium,Total 9.1 mg/dL (8.5-10.1); Chloride 104 mmol/L (98-107); Cholesterol 201 mg/dL (200); Creatinine, Serum 0.92 mg/dL (0.55-1.02); EST Glomerular Filtration Rate 62 mL/min (>60); Est Glom Filt Rate - Afr Amer 75 mL/min (>60); Glucose 167 mg/dL (74-106); High Density Lipoprotein 48 mg/dL; Potassium 4.2 mmol/L (3.5-5.1); Protein, Total 7.6 g/dL (6.4-8.2); Sodium Level 138 mmol/L (136-145); Triglycerides 177 mg/dL; Very Low Density Lipoprotein 35 mg/dL (5-40)
== END | disposition home or self-care (01) ==
LOC: MTLAB 11:52
PROVIDERS: PCP Family Medicine; Referring Provider Family Medicine; Visit Provider Family Medicine
DX: Z01.818 Encounter for other preprocedural examination (principal); E11.622 Type 2 diabetes mellitus with other skin ulcer
CPT/HCPCS: 36415; 80053; 80061; 85025

== ENCOUNTER → 2021-08-03 | Outpatient (CLI) | payer MEDICARE, OTHER, SELFPAY ==
--- NOTE | 2021-08-03 10:49 | BI_ITS ---
MAMMOGRAPHY - BILATERAL SCREENING REASON FOR EXAM: Female, 81 years old. Routine annual screening examination. PERTINENT HISTORY: Mother with breast cancer. Grandmother with breast cancer. TECHNIQUE: Digital bilateral breast pierre (3D mammographic acquisition) in the CC and MLO projections. 2-D mediolateral oblique (MLO) and craniocaudad (CC) views of both breasts were obtained. CAD: Full Field Digital Mammography with Computer Added Detection was performed. COMPARISON: Comparison is made with prior study dated 07/19/2020 and 07/29/2019. FINDINGS: Breast Composition: The breasts are heterogeneously dense, which may obscure small masses. There are no dominant masses or suspicious calcifications. No other significant abnormalities are identified. There has been no significant change since the prior study. BI/SCRN MAMM (CAD)W/PIERRE BILAT IMPRESSION: Stable bilateral screening mammogram. Yearly follow-up mammogram recommended. (A) ASSESSMENT CATEGORY: BIRADS Category 1: Negative. A letter regarding these results will be sent to the patient by the facility within 30 days. Approximately 10% of breast cancers are not detected by mammography. A normal mammogram should not delay biopsy of a clinically suspicious abnormality. [id number] Electronically Signed: Johnathan Jacob MD at 11:57 EDT ,
== END | disposition home or self-care (01) ==
LOC: OPBI 10:48
PROVIDERS: PCP Family Medicine; Referring Provider Family Medicine; Visit Provider Family Medicine
DX: Z12.31 Encounter for screening mammogram for malignant neoplasm of breast (principal)
CPT/HCPCS: 77063; 77067

== ENCOUNTER → 2021-08-10 | Outpatient (CLI) | payer MEDICARE, OTHER, SELFPAY ==
[2021-08-10 17:26] LABS: Absolute Lymphocyte Count 2.29 X10^3/uL (0.83-4.51); Absolute Neutrophil Count 4.9 X10^3/uL (2.0-7.7); Basophil# 0.05 X10^3/uL; Basophil% 0.6 % (0-1); Eosinophil# 0.15 X10^3/uL; Eosinophils% 1.9 % (0-5); Hemoglobin 12.7 g/dL (12.0-15.0); Lymphocyte # 2.29 X10^3/ul (0.83-4.51); Lymphocyte % 28.4 % (19-41); Mean Corp Hgb Conc 34.3 g/dL (32-36); Mean Corpuscular Hgb 30.5 pg (27.0-32.0); Mean Corpuscular Volume 88.7 fL (81-99); Mean Platelet Vol. 11.6 fl (6.2-12.0); Monocyte# 0.61 X10^3/uL; Monocyte% 7.6 % (0-10); NRBC Flagged by Analyzer 0 % (0-5); Neutrophil # 4.93 X10^3/uL (2.7-7.7); Neutrophil % 61.3 % (47-70); Platelet Count 338 K/mm3 (150-450); RBC Distribution Width SD 38.5 fl (35.1-43.9); Red Blood Count 4.17 M/mm3 (4.2-5.4); White Blood Count 8.1 K/mm3 (4.4-11.0)
[2021-08-10 17:45] LABS: BUN 22 mg/dL (7-18); Creatinine, Serum 0.85 mg/dL (0.55-1.02); EST Glomerular Filtration Rate 68 mL/min (>60); Glucose 191 mg/dL (74-106)
[2021-08-10 17:46] LABS: Anion Gap 5 (5-15); BUN/Creat Ratio 25.8 RATIO (10-20); Calcium,Total 9.2 mg/dL (8.5-10.1); Chloride 104 mmol/L (98-107); Est Glom Filt Rate - Afr Amer 82 mL/min (>60); Potassium 4.1 mmol/L (3.5-5.1); Sodium Level 136 mmol/L (136-145)
== END | disposition home or self-care (01) ==
LOC: MFPLAB 14:44
PROVIDERS: PCP Family Medicine; Referring Provider Family Medicine; Visit Provider Family Medicine
DX: Z01.818 Encounter for other preprocedural examination (principal)
CPT/HCPCS: 36415; 80048; 85025

== ENCOUNTER → 2022-01-09 | Outpatient (CLI) | payer MEDICARE, OTHER, SELFPAY ==
[2022-01-09 15:39] LABS: Anion Gap 6 (5-15); BUN 17 mg/dL (7-18); BUN/Creat Ratio 21.8 RATIO (10-20); Calcium,Total 9.4 mg/dL (8.5-10.1); Chloride 107 mmol/L (98-107); Cholesterol 181 mg/dL (200); Creatinine, Serum 0.78 mg/dL (0.55-1.02); EST Glomerular Filtration Rate 75 mL/min (>60); Est Glom Filt Rate - Afr Amer 91 mL/min (>60); Glucose 167 mg/dL (74-106); High Density Lipoprotein 51 mg/dL; Potassium 4.7 mmol/L (3.5-5.1); Sodium Level 139 mmol/L (136-145); Triglycerides 155 mg/dL; Very Low Density Lipoprotein 31 mg/dL (5-40)
== END | disposition home or self-care (01) ==
LOC: MFPLAB 11:40
PROVIDERS: PCP Family Medicine; Referring Provider Family Medicine; Visit Provider Family Medicine
DX: E11.69 Type 2 diabetes mellitus with other specified complication (principal)
CPT/HCPCS: 36415; 80048; 80061

== ENCOUNTER → 2022-07-01 | Outpatient (CLI) | payer MEDICARE, OTHER, SELFPAY ==
--- NOTE | 2022-07-01 13:01 | ECHOD_ITS ---
Reason For Study: MURMUR LEFT BRUIT Procedure This was a 2D Doppler, Color Flow transthoracic echocardiogram. Exam performed in department. Left Ventricle Normal LV size. The estimated ejection fraction is 65 %. Stage 1 diastolic dysfunction. No regional wall motion abnormalities noted. Right Ventricle Normal RV size. Normal systolic function. Atria Normal left atrium. Normal right atrium. Mitral Valve There is mild to moderate mitral annular calcification. Tricuspid Valve Normal tricuspid valve. Mild tricuspid valve insufficiency. Pulmonary artery systolic pressure is 33 mmHg. Aortic Valve Trisinus/trileaflet aortic valve. Mild focal aortic valve calcification. Pulmonic Valve Normal pulmonic valve. Trivial pulmonic valve insufficiency. Great Vessels Normal aortic root. The pulmonary artery is normal size. Normal inferior vena cava. Pericardium/Pleural No pericardial effusion. MMode/2D Measurements & Calculations LVIDd: 4.7 cm IVSd: 1.0 cm Ao root diam: 2.7 cm LVIDs: 3.2 cm LVPWd: 1.0 cm RVDd: 3.3 cm FS: 32.8 % LAV(MOD-bp): 43.8 ml LVAd ap4: 26.0 cm2 SV(MOD-sp4): 42.4 ml LAV(MOD-bp) Indexed: 23.3 ml/m2 LVLd ap4: 8.0 cm LAV(MOD-sp2): 43.7 ml EDV(MOD-sp4): 68.1 ml LAV(MOD-sp4): 39.4 ml EDV(sp4-el): 71.6 ml LVAs ap4: 13.7 cm2 LVLs ap4: 6.2 cm ESV(MOD-sp4): 25.7 ml ESV(sp4-el): 26.1 ml EF(MOD-sp4): 62.2 % EF(sp4-el): 63.6 % SV(sp4-el): 45.5 ml LA A4 area: 16.2 cm2 LA dimension(2D): 4.0 cm RA A4 area: 13.6 cm2 Time Measurements MV dec time: 0.29 sec Doppler Measurements & Calculations MV E max david: 128.0 cm/sec Lat Peak E' David: 5.9 cm/sec Med Peak E' David: 6.0 cm/sec MV A max david: 174.7 cm/sec E/E' lat: 21.7 E/E' med: 21.2 MV E/A: 0.73 MV V2 max: 186.8 cm/sec MV P1/2t max david: 140.3 cm/sec Ao V2 max: 180.1 cm/sec MV max P.0 mmHg MV P1/2t: 76.7 msec Ao max P.0 mmHg MV V2 mean: 116.5 cm/sec MV mean P.0 mmHg MV dec slope: 535.7 cm/sec2 MV V2 VTI: 42.1 cm MVA(P1/2t): 2.9 cm2 LV V1 max: 109.8 cm/sec PA V2 max: 109.5 cm/sec TR max david: 264.7 cm/sec LV V1 max P.8 mmHg TR max P.0 mmHg ECHO/Echo Complete Interpretation Summary Normal LV size. The estimated ejection fraction is 65 %. Stage 1 diastolic dysfunction. Mild tricuspid valve insufficiency. Pulmonary artery systolic pressure is 33 mmHg. Ordering Physician: Sita Yi/Sunday Morales Referring Physician: KENNETH CORDON Performed By: Katherine Lord RDCS
--- NOTE | 2022-07-01 13:01 | CDU_ITS ---
Reason For Study: BRUIT Rt. Velocities/BP Lt. Velocities/BP Prox CCA 101.1/1.6 cm/sec. Prox CCA 148.4/12.3 cm/sec. Mid CCA 129.3/13.0 cm/sec. Mid CCA 91.7/13.2 cm/sec. Dist CCA 98.6/15.1 cm/sec. Dist CCA 100.8/15.0 cm/sec. Prox ICA 66.2/8.5 cm/sec. Prox ICA 75.3/15.0 cm/sec. Mid ICA 77.2/12.2 cm/sec. Mid ICA 119.1/24.1 cm/sec. Dist ICA 87.6/19.5 cm/sec. Dist ICA 104.8/24.9 cm/sec. Rt. ICA/CCA = 87.6/129.3=0.7. Lt. ICA/CCA = 119.1/91.7=1.3. Prox ECA 73.6/13.4 cm/sec. Prox ECA 108.1/7.7 cm/sec. Rt. Vert. 53.7/7.6 cm/sec. Lt. Vert. 58.5/7.5 cm/sec. Right Extracranial There is homogeneous, smooth atherosclerotic plaque noted in the right common carotid artery. There is heterogeneous, smooth atherosclerotic plaque noted in the right internal carotid artery. There is heterogeneous, smooth atherosclerotic plaque noted in the right external carotid artery. Antegrade flow is noted in the right vertebral artery. Left Extracranial There is homogeneous, smooth atherosclerotic plaque noted in the left common carotid artery. There is heterogeneous, irregular atherosclerotic plaque noted in the left internal carotid artery. There is homogeneous, smooth atherosclerotic plaque noted in the left external carotid artery. Antegrade flow is noted in the left vertebral artery. Procedure Carotid Duplex 14002. This is a Carotid Duplex examination using B-mode, color flow and specral Doppler. Exam performed in department. VL/Carotid Duplex Ultrasound Interpretation Summary Mild (<50%) stenosis right extracranial internal carotid. Mild (<50%) stenosis left extracranial internal carotid. Flow within the vertebral arteries is antegrade bilaterally. Ordering Physician: Elvin Burnett Referring Physician: Elvin Scott Performed By: Ivy Christensen, MORE, RVT
== END | disposition home or self-care (01) ==
LOC: CVS 12:59
PROVIDERS: PCP Family Medicine; Referring Provider Physician Assistant Medical; Visit Provider Physician Assistant Medical
DX: R09.89 Other specified symptoms and signs involving the circulatory and respiratory systems (principal); I44.1 Atrioventricular block, second degree; R01.1 Cardiac murmur, unspecified; I51.7 Cardiomegaly
CPT/HCPCS: 93306; 93880

== ENCOUNTER → 2022-08-06 | Outpatient (CLI) | payer MEDICARE, OTHER, SELFPAY ==
--- NOTE | 2022-08-06 12:25 | BI_ITS ---
MAMMOGRAPHY - BILATERAL SCREENING REASON FOR EXAM: Female, 82 years old. Routine annual screening examination. PERTINENT HISTORY: Mother with breast cancer. Grandmother with breast cancer. TECHNIQUE: Digital bilateral breast pierre (3D mammographic acquisition) in the CC and MLO projections. 2-D mediolateral oblique (MLO) and craniocaudad (CC) views of both breasts were obtained. CAD: Full Field Digital Mammography with Computer Added Detection was performed. COMPARISON: Comparison is made with prior study dated August 03, 2021 and July 19, 2020. FINDINGS: Breast Composition: The breasts are heterogeneously dense, which may obscure small masses. There are no dominant masses or suspicious calcifications. A battery pack is seen in the left axillary region. No other significant abnormalities are identified. There has been no significant change since the prior study. BI/SCRN MAMM (CAD)W/PIERRE BILAT IMPRESSION: Stable bilateral screening mammogram. Yearly follow-up mammogram recommended. (A) ASSESSMENT CATEGORY: BIRADS Category 2: Benign. A letter regarding these results will be sent to the patient by the facility within 30 days. Approximately 10% of breast cancers are not detected by mammography. A normal mammogram should not delay biopsy of a clinically suspicious abnormality. [id number] Electronically Signed: Johnathan Jacob MD at 13:22 EDT ,
== END | disposition home or self-care (01) ==
LOC: OPBI 12:21
PROVIDERS: PCP Family Medicine; Referring Provider Family Medicine; Visit Provider Family Medicine
DX: Z12.31 Encounter for screening mammogram for malignant neoplasm of breast (principal)
CPT/HCPCS: 77063; 77067

== ENCOUNTER → 2022-10-02 | Outpatient (CLI) | payer MEDICARE, OTHER, SELFPAY ==
[2022-10-02 15:31] LABS: Hemoglobin A1c 7.7 % (3.8-5.6)
[2022-10-02 15:42] LABS: ALB/GLOB Ratio 0.8 RATIO (0.9-2.4); AST(SGOT) 11 U/L (15-37); Alanine Aminotransfer ALT/SGPT 19 U/L (13-56); Albumin, Serum 3.4 g/dL (3.2-5.0); Alkaline Phosphatase 78 U/L (45-117); Anion Gap 5 (5-15); BUN 23 mg/dL (7-18); Calcium,Total 9.3 mg/dL (8.5-10.1); Chloride 105 mmol/L (98-107); Cholesterol 189 mg/dL (200); EST Glomerular Filtration Rate 56 mL/min (>60); Est Glom Filt Rate - Afr Amer 68 mL/min (>60); Globulin 4.1 g/dL (2.2-4.2); Glucose 133 mg/dL (74-106); High Density Lipoprotein 54 mg/dL; Protein, Total 7.5 g/dL (6.4-8.2); Sodium Level 137 mmol/L (136-145); Triglycerides 169 mg/dL; Very Low Density Lipoprotein 34 mg/dL (5-40)
== END | disposition home or self-care (01) ==
LOC: MFPLAB 14:08
PROVIDERS: PCP Family Medicine; Visit Provider Family Medicine
DX: E11.9 Type 2 diabetes mellitus without complications (principal); E66.9 Obesity, unspecified
CPT/HCPCS: 36415; 80053; 80061; 83036

== ENCOUNTER 2022-10-30 10:00 | Outpatient (RCR) | payer MEDICARE, OTHER, SELFPAY ==
[2022-10-23 10:00] VITALS: BP 169/70; PULSE 68; RESP 16; TEMP 35.9
--- NOTE | 2022-10-23 12:25 | PCM.WC.HP ---
History of Present Illness Date of Service: 10/23/22 Chief Complaint: Pressure injury to right buttock and left buttocks pressure sores from sitting in her recliner History of Wound: Patient is an 82-year-old female presenting to the wound center for treatment of pressure injury to her right buttock and left buttocks. She has a past medical history as listed above. The patient states this wound has been present intermittently for the past 5 years. She states it feels painful only when sitting, and has tried Neosporin and gauze for treatment in the past, but it is not healing this time which prompted a referral to the wound center from her PCP. The patient sleeps in a recliner nightly due to LUCERO, but she refuses to wear her CPAP mask due to anxiety. She states she has a gel cushion and will try using it. She is currently using an eggcrate that are probably old and needs to be replaced if she does not use the gel. She has a past medical history of type 2 diabetes with her last A1c at 7.3. She states she drinks Ensure protein drinks at least 1/day. She denies any systemic or localized signs of infection at this time. Past medical, family, and social history reviewed and not pertinent to the current visit and all other systems reviewed and negative with exception of those listed above. Patient also has concerned about her groin breaking down with yeast infections become painful and her feet she gets sweaty feet and has tinea pedis. [facility] Medical History Diarrhea Essential hypertension GERD (gastroesophageal reflux disease) IBS (irritable bowel syndrome) Mobitz (type) II atrioventricular block Overactive bladder Presence of permanent cardiac pacemaker (~05/07/21) Pressure injury of right buttock, stage 2 RBBB Type 2 diabetes mellitus Home Medications lisinopril 2.5 mg tablet 2.5 mg PO DAILY 05/02/16 [History Last Taken 06/30/17 06:00] omeprazole 40 mg capsule,delayed release 40 mg PO BID 05/02/16 [History Last Taken Unknown] psyllium husk (aspartame) 3.4 gram oral powder packet 1 packet PO QHS 05/02/16 [History Last Taken Unknown] dicyclomine 20 mg tablet 20 mg PO BID 11/30/20 [History Last Taken Unknown] glimepiride 4 mg tablet 4 mg PO QAM 10/02/21 [History Last Taken Unknown] latanoprost 0.005 % eye drops 1 drp ophthalmic (eye) QPM 10/02/21 [History Last Taken Unknown] metformin 500 mg tablet 500 mg PO DAILY 10/02/21 [History Last Taken Unknown] timolol maleate 0.5 % eye drops (Timoptic) 1 drp ophthalmic (eye) BID 10/02/21 [History Last Taken Unknown] cholecalciferol (vitamin D3) 125 mcg (5,000 unit) tablet 125 mcg PO DAILY 10/04/21 [History Last Taken Unknown] mirabegron 25 mg tablet,extended release 24 hr 25 mg PO DAILY 05/28/22 [History Last Taken Unknown] Lactobacillus rhamnosus-Bifidobac. animalis 3 billion cell capsule ([employer]) 1 cap PO DAILY 10/23/22 [History Last Taken Unknown] empagliflozin 10 mg tablet (Jardiance) 10 mg PO DAILY 10/23/22 [History Last Taken Unknown] famotidine 20 mg tablet (Acid Controller) 20 mg PO DAILY 10/23/22 [History Last Taken Unknown] Allergy/AdvReac Type Severity Reaction Status Date / Time pregabalin [From Lyrica] AdvReac Unknown Balance/Cognition Verified 10/23/22 10:14 Issues cefuroxime [From Ceftin] AdvReac Itching Verified 10/23/22 10:14 metformin AdvReac Diarrhea Verified 10/23/22 10:14 oxybutynin AdvReac Swelling Verified 10/23/22 10:14 Family History Grandfather Myocardial infarction Mother Cancer Father CVA (cerebral vascular accident) Brother Cancer Pancreatic CA CAD (coronary artery disease) History of coronary artery bypass surgery Brother Cancer Prostate Presence of permanent cardiac pacemaker Brother CAD (coronary artery disease) History of coronary artery bypass surgery x2 Heart valve disorder Uncle Myocardial infarction Sister CVA (cerebral vascular accident), Onset Age: 40 Congestive heart failure Brother Cancer Surgical History Cornea transplant recipient H/O total hysterectomy with bilateral salpingo-oophorectomy (BSO) History of cataract extraction History of laparoscopic cholecystectomy Status post mastoidectomy Social History Smoking Status: Former smoker alcohol intake: current alcohol intake frequency: holidays/special occasions only substance use type: does not use caffeine: Yes ROS Constitutional Constitutional: Reports systems reviewed and no addt'l complaints, except as documented Eyes Eyes: Reports systems reviewed and no addt'l complaints, except as documented ENT HEENT: Reports systems reviewed and no addt'l complaints, except as documented Cardiovascular Cardiovascular: Reports systems reviewed and no addt'l complaints, except as documented Respiratory/Chest Respiratory/Chest: Reports systems reviewed and no addt'l complaints, except as documented Gastrointestinal Gastrointestinal: Reports systems reviewed and no addt'l complaints, except as documented Genitourinary Genitourinary: Reports systems reviewed and no addt'l complaints, except as documented Musculoskeletal Musculoskeletal: Reports systems reviewed and no addt'l complaints, except as documented Integumentary Integumentary: Reports systems reviewed and no addt'l complaints, except as documented, skin pain, skin ulcer, wounds and other Details: Small open sores on right and left buttocks from laying in a recliner all day long without any eggcrate or gel cushion. She also sleeps in the recliner on her back never on her side. Neurologic Neurologic: Reports systems reviewed and no addt'l complaints, except as documented Psychiatric Psychiatric: Reports systems reviewed and no addt'l complaints, except as documented Endocrine Endocrinology: Reports systems reviewed and no addt'l complaints, except as documented Hematologic/Lymphatic Hematologic/Lymphatic: Reports systems reviewed and no addt'l complaints, except as documented Allergic/Immunologic Allergic/Immunologic: Reports systems reviewed and no addt'l complaints, except as documented Vital Signs Vital Signs Vital Signs: 10/23/22 10:00 Temperature 96.6 F L Temperature Source Temporal Pulse Rate 68 Respiratory Rate 16 Blood Pressure 169/70 H Blood Pressure Mean 103 Blood Pressure Source Monitor Blood Pressure Position Sitting Blood Pressure Location Right Arm Oxygen Delivery Method Room Air Physical Exam Const oriented x3 General Appearance: cooperative Exam Limitations: no limitations HEENT normocephalic Head and Scalp: normal to inspection Face and Sinus: normal facial exam External Ear: external ears normal Eyes General Eye: normal appearance of both eyes Neck full ROM General: normal visual inspection Resp normal respiratory effort Effort and Inspection: able to speak in complete sentences Auscultation: clear to auscultation bilaterally Cardio regular rate and regular rhythm Palpation: normal PMI Rate: regular rate Rhythm: regular rhythm Extremity normal to inspection General Extremity: normal exam except as noted Skin Skin Narrative: Left groin area has some candidiasis reddened area with some satellites. Left buttocks has a small open area about the size of a dime very superficial. Right buttocks much bigger and has some depth about the size of a quarter. Neuro oriented x3 Psych Appearance: grossly normal Speech: normal speech Thought Content: normal thought content Judgement: judgement good Debridement Note Debridement Note Wound debrided: Right buttocks decubitus ulcer Laterality: Right Wound Grade/Stage: Stage II Type of Debridement: Excisional debridement Anesthesia Used: 5% Lidocaine Gel Depth: in the subcutaneous layer Percentage of wound debrided: 100 Instrument Used: 5mm curette Tissue Removed: Fibrin Severity: Fat Layer Exposed Amount of bleeding with debridement: Mild Bleeding Controlled with: Compression and gauze Patient tolerated procedure: Patient tolerated procedure well Post-Debridement Measurements and Additional Note: Post-Debridement Measurements/Treatment - Nurse 1 - General Ulcer Assessment Start: 10/23/22 09:56 Freq: Status: Active Protocol: PALOMO Activity Type Activity Date Activity User E-sign Co-sign Detail Recorded Client Recorded Date Recorded By Document 10/23/22 10:00 [facility] Desktop 10/23/22 10:13 [facility] 10/23/22 10:00 - Today's Visit Information Type of service Initial Visit Arrival Mode Ambulatory Transfer Assistance None Patient Identification Verified (Name & Yes ) Patient Requires Transmission-Based No Precautions Vital Signs Temperature (97.8 F-99.1 F) 96.6 F L Temperature Source Temporal Pulse Rate (60-100) 68 Pulse Location Monitor Respiratory Rate (12-18) 16 Respiratory rate source Observation Oxygen Delivery Method Room Air Blood Pressure (90/60-120/80) 169/70 H Blood Pressure Mean 103 Source Monitor Position Sitting Blood Pressure Location Right Arm History Since Last Visit- (Skip if this is Patient's initial visit) Left Footwear Regular Shoe Right Footwear Regular Shoe Pain Scale: 0-10 Numeric Is Patient Pain Free? Yes Communication Assessment Preferred language Ecuadorean Clerical Aide Required No Able to Read Yes Able to Write Yes Communication Tools None Right Hearing Abillity Normal Left Hearing Abillity Normal Visual Assistive Devices Glasses Teaching Assessment Preferences Verbal,Written, Audio/Visual, Demonstration Barriers to Learning None Readiness To Learn Excellent Willingness to Engage in Self Management High Activies Readiness to Engage in Self Management High Activities Anxiety Level Calm Cooperation Cooperative Perception Coherent Interest in Health Problem Asks Questions Education Importance Acknowledges Need Does Patient Smoke tobacco or other No substances Is Patient Diabetic Yes WC - Nurse 1 - General Ulcer Measurement Start: 10/23/22 09:56 Freq: Status: Active Protocol: Activity Type Activity Date Activity User E-sign Co-sign Detail Recorded Client Recorded Date Recorded By Document 10/23/22 10:00 [facility] Desktop 10/23/22 10:13 [facility] 10/23/22 10:00 Wound Center Nurse 1 #3- L BUTTOCK -Combined with other wound No -Current Size (cm) - Length 0.7 -Current Size (cm) - Width 0.5 -Current Size (cm) - Depth 0.1 -Total Square Cm 0.35 -Date of Last Picture (Recall this 10/23/22 field) -Photo Taken Yes -Tunneling No -Undermining/Tunneling No -Circular Undermining No -Exudate Amt Medium -Exudate Type Serosanguineous -Wound Margin Distinct, Outline Attached -Granulation Amt Medium (34-66%) -Granulation Quality Red -Slough/Fibrin Yes -Necrosis Amt Medium (34-66%) -Necrotic Tissue Type Adherent Slough -Texture (Karin-wound Skin Appearance) Assessed, Scarring -Moisture (Karin-wound Skin Appearance) Assessed -Color (Karin-wound Skin Appearance) Assessed, Erythema -Temperature (Karin-wound Skin No Abnormality Appearance) (Pt Warm) -Tenderness on Palpation (Karin-wound No Skin Appearance) -Ulcer Cleansing Rinsed/ Irrigated with Saline -Foul Odor after Cleansing No -Anesthetic Used 5% Lidocaine Gel #2- R BUTTOCK -Combined with other wound No -Current Size (cm) - Length 0.4 -Current Size (cm) - Width 0.5 -Current Size (cm) - Depth 0.2 -Total Square Cm 0.20 -Date of Last Picture (Recall this 10/23/22 field) -Photo Taken Yes -Epithelialization None Present -Tunneling No -Undermining/Tunneling No -Circular Undermining No -Exudate Amt Medium -Exudate Type Serosanguineous -Wound Margin Flat & Intact -Granulation Amt Medium (34-66%) -Granulation Quality Red -Slough/Fibrin Yes -Necrosis Amt Medium (34-66%) -Necrotic Tissue Type Adherent Slough -Texture (Karin-wound Skin Appearance) Assessed, Scarring -Moisture (Karin-wound Skin Appearance) Assessed -Color (Karin-wound Skin Appearance) Assessed, Erythema -Temperature (Karin-wound Skin No Abnormality Appearance) (Pt Warm) -Tenderness on Palpation (Karin-wound No Skin Appearance) -Ulcer Cleansing Rinsed/ Irrigated with Saline -Foul Odor after Cleansing No -Anesthetic Used 4% Lidocaine Solution WC - Nurse 2 - General Ulcer CM Notes Start: 10/23/22 09:56 Freq: Status: Active Protocol: Activity Type Activity Date Activity User E-sign Co-sign Detail Recorded Client Recorded Date Recorded By Document 10/23/22 10:25 MW [id number] 10/23/22 10:33 MW 10/23/22 10:25 Wound Center Nurse 2 #3- L BUTTOCK -Time 10:31 -Correct Patient Yes -Correct Side, Site, Position Yes -Correct Procedure Yes -Procedure Performed Yes -Type of Procedure Debridement -Clinical Debridement Subcutaneous -Tissue Removed Subcutaneous -Post Debridement (cm) - Length 0.5 -Post Debridement (cm) - Width 0.5 -Post Debridement (cm) - Depth 0.1 -Total Square (Post) (cm) 0.25 -Area of Debridement (cm) - Length 0.5 -Area of Debridement (cm) - Width 0.5 -Total Square (Area) (cm) 0.25 -Tunneling No -Undermining/Tunneling No -Circular Undermining No -Wound/Ulcer Outcome Not Healed -Ulcer Cleansing Rinsed/ Irrigated with Saline -Foul Odor after Cleansing No -Bioengineered Tissue No -Bleeding Controlled with Pressure -Treatment Response Procedure Tolerated Well -Offloading No -Debridement - Subq, 1st 20sq cm Yes #2- R BUTTOCK -Time 10:32 -Correct Patient Yes -Correct Side, Site, Position Yes -Correct Procedure Yes -Procedure Performed Yes -Type of Procedure Debridement -Clinical Debridement Subcutaneous -Tissue Removed Subcutaneous -Post Debridement (cm) - Length 0.4 -Post Debridement (cm) - Width 0.5 -Post Debridement (cm) - Depth 0.2 -Total Square (Post) (cm) 0.20 -Area of Debridement (cm) - Length 0.4 -Area of Debridement (cm) - Width 0.5 -Total Square (Area) (cm) 0.20 -Tunneling No -Undermining/Tunneling No -Circular Undermining No -Wound/Ulcer Outcome Not Healed -Ulcer Cleansing Rinsed/ Irrigated with Saline -Foul Odor after Cleansing No -Bioengineered Tissue No -Bleeding Controlled with Pressure -Treatment Response Procedure Tolerated Well -Offloading No -Debridement - Subq, 1st 20sq cm No Pain Scale: 0-10 Numeric Is Patient Pain Free? Yes - Nurse 3 - General Ulcer D/C NN Start: 10/23/22 09:56 Freq: Status: Active Protocol: Activity Type Activity Date Activity User E-sign Co-sign Detail Recorded Client Recorded Date Recorded By Document 10/23/22 10:52 [facility] Desktop 10/23/22 10:53 RB Edit Result 10/23/22 10:52 RB (1) Desktop 10/23/22 10:53 RB (1) #3- L BUTTOCK - Primary Dressing Applied => Mepilex Border #2- R BUTTOCK - Primary Dressing Applied => Mepilex Border 10/23/22 10:52 Wound Care Center Nurse 3 #3- L BUTTOCK -Primary Dressing Applied Mepilex Border -Other Dressing xeroform -Mepilex Border 1 #2- R BUTTOCK -Primary Dressing Applied Mepilex Border -Other Dressing xeroform -Mepilex Border 1 Treatment Response Procedure Tolerated Well Pain Scale: 0-10 Numeric Is Patient Pain Free? Yes - Visit Discharge Discharge Condition Stable Ambulatory Status Ambulatory Transportation Private Auto Medication Reconcilliation completed & No provided to patient/care provider Clinical Summary of Care Provided Yes Additional Wound Wound debrided: Left buttocks decubitus ulcer Laterality: Left Wound Grade/Stage: Stage II Type of Debridement: Excisional debridement Anesthesia Used: 5% Lidocaine Gel Depth: Down to and including healthy tissue and in the subcutaneous layer Percentage of wound debrided: 100 Instrument Used: 5mm curette Tissue Removed: Fibrin devitalized tissue Severity: Fat Layer Exposed Amount of bleeding with debridement: Mild Bleeding Controlled with: Compression and gauze Patient tolerated procedure: Patient tolerated procedure well Assessment/Plan Assessment/Plan (1) Type 2 diabetes mellitus: CODE(S): E11.9 - Type 2 diabetes mellitus without complications QUALIFIERS: Diabetes mellitus tank terminal gauger insulin use: without group home use Diabetes mellitus complication status: with circulatory complication Diabetes mellitus complication detail: with other circulatory complications Qualified Code(s): E11.59 - Type 2 diabetes mellitus with other circulatory complications (2) Candidiasis of female genitalia: CODE(S): B37.31 - Acute candidiasis of vulva and vagina PLAN: Wash area with antibacterial soap apply mvcf-xoy-swmbyox hydrocortisone cream and then sprinkle Zeasorb over top 2-3 times a day till gone. May also apply a pillowcase in the folds of her abdomen to keep the area dry during the night. (3) Decubitus ulcer of left buttock, stage 2: CODE(S): L89.322 - Pressure ulcer of left buttock, stage 2 PLAN: Wash buttocks with antibacterial soap apply Xeroform and foam dressing to each buttocks cheek. Cultures were obtained will call with results Follow-up in 1 week (4) Pressure injury of right buttock, stage 2: CODE(S): L89.312 - Pressure ulcer of right buttock, stage 2 PLAN: Same as above
[2022-10-30 10:24] VITALS: BP 186/70; PULSE 74; RESP 18; TEMP 35.9
--- NOTE | 2022-10-30 11:02 | PN.PCM_ITS ---
History of Present Illness Date of Service: 10/30/22 Chief Complaint: Pressure injury to right buttock and left buttocks pressure sores from sitting in her recliner History of Wound: Patient is an 82-year-old female presenting to the wound center for treatment of pressure injury to her right buttock and left buttocks. She has a past medical history as listed above. The patient states this wound has been present intermittently for the past 5 years. She states it feels painful only when sitting, and has tried Neosporin and gauze for treatment in the past, but it is not healing this time which prompted a referral to the wound center from her PCP. The patient sleeps in a recliner nightly due to LUCERO, but she refuses to wear her CPAP mask due to anxiety. She states she has a gel cushion and will try using it. She is currently using an eggcrate that are probably old and needs to be replaced if she does not use the gel. She has a past medical history of type 2 diabetes with her last A1c at 7.3. She states she drinks Ensure protein drinks at least 1/day. She denies any systemic or localized signs of infection at this time. Past medical, family, and social history reviewed and not pertinent to the current visit and all other systems reviewed and negative with exception of those listed above. Patient also has concerned about her groin breaking down with yeast infections become painful and her feet she gets sweaty feet and has tinea pedis. Progress of Wound: Right buttocks is healed left buttock still has a small opening we will continue dressing changes on the left buttocks and right buttocks just put the foam dressing for protection. Patient also states that the groin and feet are improving with medications that we suggested she buy. Subjective Subjective Patient is very pleased with outcomes not having any more pain in her buttocks Objective Data Objective Data Patient is almost healed probably by next week she could have the left buttocks healed that was the worst of the 2. Patient is also started on antibiotic therapy linezolid and will finish that and that should heal her up. Vital Signs: Vital Signs Temp Pulse Resp BP O2 Del Method 96.7 F L 74 18 186/70 H Room Air 10/30/22 10:24 10/30/22 10:24 10/30/22 10:24 10/30/22 10:10/23/22 10:00 Oxygen Delivery Method Room Air Lab / Micro Data Attestation: I reviewed the patient's lab results. Micro: Microbiology 10/23/22 10:30 Wound - Buttock Gram Stain - Final 10/23/22 10:30 Wound - Buttock Wound Culture - Final Streptococcus agalactiae (B) Staphylococcus capitis 10/23/22 10:30 Wound - Buttock Anaerobic Culture - Final No anaerobic bacteria isolated. Physical Exam Const oriented x3 General Appearance: cooperative Exam Limitations: no limitations HEENT normocephalic Head and Scalp: normal to inspection Face and Sinus: normal facial exam External Ear: external ears normal Eyes General Eye: normal appearance of both eyes Neck full ROM General: normal visual inspection Resp normal respiratory effort Effort and Inspection: able to speak in complete sentences Auscultation: clear to auscultation bilaterally Cardio regular rate and regular rhythm Palpation: normal PMI Rate: regular rate Rhythm: regular rhythm Extremity normal to inspection General Extremity: normal exam except as noted Skin Skin Narrative: Left groin area has some candidiasis reddened area with some satellites. Left buttocks has a small open area about the size of a dime very superficial. Right buttocks much bigger and has some depth about the size of a quarter. Neuro oriented x3 Psych Appearance: grossly normal Speech: normal speech Thought Content: normal thought content Judgement: judgement good Debridement Note Debridement Note Wound debrided: Left buttocks decubitus ulcer Laterality: Left Wound Grade/Stage: Stage II Type of Debridement: Excisional debridement Anesthesia Used: 5% Lidocaine Gel Depth: Down to and including healthy tissue Percentage of wound debrided: 100 Instrument Used: 3mm curette Tissue Removed: Fibrin Severity: Limited To Skin Breakdown Amount of bleeding with debridement: Mild Bleeding Controlled with: Pressure Patient tolerated procedure: Patient tolerated procedure well Post-Debridement Measurements and Additional Note: Post-Debridement Measurements/Treatment JUAN C - Nurse 1 - General Ulcer Assessment Start: 10/23/22 09:56 Freq: Status: Active Protocol: PALOMO Activity Type Activity Date Activity User E-sign Co-sign Detail Recorded Client Recorded Date Recorded By Document 10/23/22 10:00 [facility] Desktop 10/23/22 10:13 BM Document 10/30/22 10:24 RB [id number] 10/30/22 10:26 RB 10/23/22 10/30/22 10:00 10:24 - Today's Visit Information Type of service Initial Visit 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 ) Arrival Mode Ambulatory Ambulatory Transfer Assistance None None Patient Identification Verified (Name & Yes Yes ) Patient Requires Transmission-Based No No Precautions Vital Signs Temperature (97.8 F-99.1 F) 96.6 F L 96.7 F L Temperature Source Temporal Temporal Pulse Rate (60-100) 68 74 Pulse Location Monitor Monitor Respiratory Rate (12-18) 16 18 Respiratory rate source Observation Observation Oxygen Delivery Method Room Air Blood Pressure (90/60-120/80) 169/70 H 186/70 H Blood Pressure Mean (mm Hg) 103 108 Source Monitor Monitor Position Sitting Sitting Blood Pressure Location Right Arm Left Arm History Since Last Visit- (Skip if this is Patient's initial visit) Have you changed medications since your No last visit? Any new allergies or adverse reactions No Had a fall/change in ADL's that may No increase risk of falls Signs or symptoms of abuse and/or No neglect since last visit Have you been in the hospital since your No last visit? Has dressing in place as prescribed Yes Has compression in place as prescribed No Has offloadiing in place as prescribed Yes Experienced any changes in pain level or No management Left Footwear Regular Shoe Right Footwear Regular Shoe Pain Scale: 0-10 Numeric Is Patient Pain Free? Yes Yes Communication Assessment Preferred language [place] Helmet Coverer Required No Able to Read Yes Able to Write Yes Communication Tools None Right Hearing Abillity Normal Left Hearing Abillity Normal Visual Assistive Devices Glasses Teaching Assessment Preferences Verbal,Written, Audio/Visual, Demonstration Barriers to Learning None Readiness To Learn Excellent Willingness to Engage in Self Management High Activies Readiness to Engage in Self Management High Activities Anxiety Level Calm Cooperation Cooperative Perception Coherent Interest in Health Problem Asks Questions Education Importance Acknowledges Need Does Patient Smoke tobacco or other No substances Is Patient Diabetic Yes - Nurse 1 - General Ulcer Measurement Start: 10/23/22 09:56 Freq: Status: Active Protocol: Activity Type Activity Date Activity User E-sign Co-sign Detail Recorded Client Recorded Date Recorded By Document 10/23/22 10:00 [facility] Desktop 10/23/22 10:13 [facility] Document 10/30/22 10:24 RB [id number] 10/30/22 10:26 RB 10/23/22 10/30/22 10:00 10:24 Wound Center Nurse 1 #3- L BUTTOCK -Combined with other wound No No -Current Size (cm) - Length 0.7 0.1 -Current Size (cm) - Width 0.5 0.1 -Current Size (cm) - Depth 0.1 0.1 -Total Square Cm 0.35 0.01 -Date of Last Picture (Recall this 10/23/22 field) -Photo Taken Yes -Tunneling No No -Undermining/Tunneling No No -Circular Undermining No No -Exudate Amt Medium Medium -Exudate Type Serosanguineous Serosanguineous -Wound Margin Distinct, Distinct, Outline Outline Attached Attached -Granulation Amt Medium (34-66%) Medium (34-66%) -Granulation Quality [place] -Slough/Fibrin Yes Yes -Necrosis Amt Medium (34-66%) Medium (34-66%) -Necrotic Tissue Type Adherent Slough Adherent Slough -Structure Exposed N/A -Texture (Karin-wound Skin Appearance) Assessed, Scarring Scarring -Moisture (Karin-wound Skin Appearance) Assessed Assessed -Color (Karin-wound Skin Appearance) Assessed, Assessed Erythema -Temperature (Karin-wound Skin No Abnormality No Abnormality Appearance) (Pt Warm) (Pt Warm) -Tenderness on Palpation (Karin-wound No No Skin Appearance) -Ulcer Cleansing Rinsed/ Wound Cleanser Irrigated with Saline -Foul Odor after Cleansing No No -Anesthetic Used 5% Lidocaine 5% Lidocaine Gel Gel #2- R BUTTOCK -Combined with other wound No -Current Size (cm) - Length 0.4 0.1 -Current Size (cm) - Width 0.5 0.1 -Current Size (cm) - Depth 0.2 0.1 -Total Square Cm 0.20 0.01 -Date of Last Picture (Recall this 10/23/22 field) -Photo Taken Yes -Epithelialization None Present -Tunneling No No -Undermining/Tunneling No No -Circular Undermining No No -Exudate Amt Medium Medium -Exudate Type Serosanguineous Serosanguineous -Wound Margin Flat & Intact Distinct, Outline Attached -Granulation Amt Medium (34-66%) Medium (34-66%) -Granulation Quality [place] -Slough/Fibrin Yes Yes -Necrosis Amt Medium (34-66%) Medium (34-66%) -Necrotic Tissue Type Adherent Slough Adherent Slough -Structure Exposed N/A -Texture (Karin-wound Skin Appearance) Assessed, Scarring Scarring -Moisture (Karin-wound Skin Appearance) Assessed Assessed -Color (Karin-wound Skin Appearance) Assessed, Assessed Erythema -Temperature (Karin-wound Skin No Abnormality No Abnormality Appearance) (Pt Warm) (Pt Warm) -Tenderness on Palpation (Karin-wound No No Skin Appearance) -Ulcer Cleansing Rinsed/ Wound Cleanser Irrigated with Saline -Foul Odor after Cleansing No No -Anesthetic Used 4% Lidocaine 5% Lidocaine Solution Gel WC - Nurse 2 - General Ulcer CM Notes Start: 10/23/22 09:56 Freq: Status: Active Protocol: Activity Type Activity Date Activity User E-sign Co-sign Detail Recorded Client Recorded Date Recorded By Document 10/23/22 10:25 MW [id number] 10/23/22 10:33 MW 10/23/22 10:25 Wound Center Nurse 2 #3- L BUTTOCK -Time 10:31 -Correct Patient Yes -Correct Side, Site, Position Yes -Correct Procedure Yes -Procedure Performed Yes -Type of Procedure Debridement -Clinical Debridement Subcutaneous -Tissue Removed Subcutaneous -Post Debridement (cm) - Length 0.5 -Post Debridement (cm) - Width 0.5 -Post Debridement (cm) - Depth 0.1 -Total Square (Post) (cm) 0.25 -Area of Debridement (cm) - Length 0.5 -Area of Debridement (cm) - Width 0.5 -Total Square (Area) (cm) 0.25 -Tunneling No -Undermining/Tunneling No -Circular Undermining No -Wound/Ulcer Outcome Not Healed -Ulcer Cleansing Rinsed/ Irrigated with Saline -Foul Odor after Cleansing No -Bioengineered Tissue No -Bleeding Controlled with Pressure -Treatment Response Procedure Tolerated Well -Offloading No -Debridement - Subq, 1st 20sq cm Yes #2- R BUTTOCK -Time 10:32 -Correct Patient Yes -Correct Side, Site, Position Yes -Correct Procedure Yes -Procedure Performed Yes -Type of Procedure Debridement -Clinical Debridement Subcutaneous -Tissue Removed Subcutaneous -Post Debridement (cm) - Length 0.4 -Post Debridement (cm) - Width 0.5 -Post Debridement (cm) - Depth 0.2 -Total Square (Post) (cm) 0.20 -Area of Debridement (cm) - Length 0.4 -Area of Debridement (cm) - Width 0.5 -Total Square (Area) (cm) 0.20 -Tunneling No -Undermining/Tunneling No -Circular Undermining No -Wound/Ulcer Outcome Not Healed -Ulcer Cleansing Rinsed/ Irrigated with Saline -Foul Odor after Cleansing No -Bioengineered Tissue No -Bleeding Controlled with Pressure -Treatment Response Procedure Tolerated Well -Offloading No -Debridement - Subq, 1st 20sq cm No Pain Scale: 0-10 Numeric Is Patient Pain Free? Yes - Nurse 3 - General Ulcer D/C NN Start: 10/23/22 09:56 Freq: Status: Active Protocol: Activity Type Activity Date Activity User E-sign Co-sign Detail Recorded Client Recorded Date Recorded By Document 10/23/22 10:52 RB Desktop 10/23/22 10:53 RB Edit Result 10/23/22 10:52 RB (1) Desktop 10/23/22 10:53 RB Document 10/30/22 10:41 BMF [id number] 10/30/22 10:42 BMF (1) #3- L BUTTOCK - Primary Dressing Applied => Mepilex Border #2- R BUTTOCK - Primary Dressing Applied => Mepilex Border 10/23/22 10/30/22 10:52 10:41 Wound Care Center Nurse 3 #3- L BUTTOCK -Primary Dressing Applied Mepilex Border Mepilex Border -Other Dressing xeroform XEROFORM -Mepilex Border 1 1 #2- R BUTTOCK -Primary Dressing Applied Mepilex Border Mepilex Border -Other Dressing xeroform -Mepilex Border 1 0 Treatment Response Procedure Procedure Tolerated Well Tolerated Well Pain Scale: 0-10 Numeric Is Patient Pain Free? Yes Yes WC - Visit Discharge Discharge Condition Stable Stable Ambulatory Status Ambulatory Ambulatory, Walker Transportation Private Auto Private Auto Medication Reconcilliation completed & No provided to patient/care provider Clinical Summary of Care Provided Yes Assessment/Plan Assessment/Plan (1) Type 2 diabetes mellitus: CODE(S): E11.9 - Type 2 diabetes mellitus without complications QUALIFIERS: Diabetes mellitus termite control servicer insulin use: without group home use Diabetes mellitus complication status: with circulatory complication Diabetes mellitus complication detail: with other circulatory complications Qualified Code(s): E11.59 - Type 2 diabetes mellitus with other circulatory complications (2) Candidiasis of female genitalia: CODE(S): B37.31 - Acute candidiasis of vulva and vagina PLAN: Continue as needed wash area with antibacterial soap apply qbit-jid-gglkxwh hydrocortisone cream and then sprinkle Zeasorb over top 2-3 times a day till gone. May also apply a pillowcase in the folds of her abdomen to keep the area dry during the night. (3) Decubitus ulcer of left buttock, stage 2: CODE(S): L89.322 - Pressure ulcer of left buttock, stage 2 PLAN: Wash left buttocks with antibacterial soap apply Xeroform and foam dressing to each buttocks cheek. Cultures were obtained will call with results Take the linezolid pills twice daily for 14 days Follow-up in 1 week (4) Pressure injury of right buttock, stage 2: CODE(S): L89.312 - Pressure ulcer of right buttock, stage 2 PLAN: Same as above
== END 2022-10-31 23:59 | disposition home or self-care (01) ==
LOC: WC 10:00
PROVIDERS: PCP Family Medicine; Referring Provider Family Medicine; Visit Provider Nurse Practitioner
DX: L89.312 Pressure ulcer of right buttock, stage 2 (principal); L89.322 Pressure ulcer of left buttock, stage 2; E11.59 Type 2 diabetes mellitus with other circulatory complications; G47.33 Obstructive sleep apnea (adult) (pediatric); Z87.891 Personal history of nicotine dependence; B37.31 Acute candidiasis of vulva and vagina; I10 Essential (primary) hypertension; K21.9 Gastro-esophageal reflux disease without esophagitis; Z79.899 Other long term (current) drug therapy; Z79.84 Long term (current) use of oral hypoglycemic drugs
CPT/HCPCS: 11042; 87070; 87075; 87077; 87186; 87205; 99213; G0463

== ENCOUNTER 2022-11-13 10:00 | Outpatient (RCR) | payer MEDICARE, OTHER, SELFPAY ==
[2022-11-01 00:22] VITALS: BP 186/70; PULSE 74; RESP 18; TEMP 35.9
[2022-11-06 10:04] VITALS: BP 173/68; PULSE 78; RESP 16; TEMP 36.2
--- NOTE | 2022-11-06 12:15 | PCM.WC.PN ---
History of Present Illness Date of Service: 11/06/22 Chief Complaint: Pressure injury to right buttock and left buttocks pressure sores from sitting in her recliner History of Wound: Patient is an 82-year-old female presenting to the wound center for treatment of pressure injury to her right buttock and left buttocks. She has a past medical history as listed above. The patient states this wound has been present intermittently for the past 5 years. She states it feels painful only when sitting, and has tried Neosporin and gauze for treatment in the past, but it is not healing this time which prompted a referral to the wound center from her PCP. The patient sleeps in a recliner nightly due to LUCERO, but she refuses to wear her CPAP mask due to anxiety. She states she has a gel cushion and will try using it. She is currently using an eggcrate that are probably old and needs to be replaced if she does not use the gel. She has a past medical history of type 2 diabetes with her last A1c at 7.3. She states she drinks Ensure protein drinks at least 1/day. She denies any systemic or localized signs of infection at this time. Past medical, family, and social history reviewed and not pertinent to the current visit and all other systems reviewed and negative with exception of those listed above. Patient also has concerned about her groin breaking down with yeast infections become painful and her feet she gets sweaty feet and has tinea pedis. Progress of Wound: Still has a very small dot that she complains of still is very sore. Was not doing the dressings exactly as I wanted him but we will try it again for another week hopefully to heal her out she should have been healed this week. Subjective Subjective Patient still complains of a little bit pain on that left buttocks cheek Objective Data Objective Data No sign of infection very tiny cyst 0.2 x 0.2 area flat no depth area no redness skin is supple she gets a little dry skin on there we will try to keep it more moist. Vital Signs: Vital Signs Temp Pulse Resp BP O2 Del Method 97.2 F L 78 16 173/68 H Room Air 11/06/22 10:04 11/06/22 10:04 11/06/22 10:04 11/06/22 10:11/06/22 10:04 Oxygen Delivery Method Room Air Lab / Micro Data Attestation: I reviewed the patient's lab results. Physical Exam Const oriented x3 General Appearance: cooperative Exam Limitations: no limitations HEENT normocephalic Head and Scalp: normal to inspection Face and Sinus: normal facial exam External Ear: external ears normal Eyes General Eye: normal appearance of both eyes Neck full ROM General: normal visual inspection Resp normal respiratory effort Effort and Inspection: able to speak in complete sentences Auscultation: clear to auscultation bilaterally Cardio regular rate and regular rhythm Palpation: normal PMI Rate: regular rate Rhythm: regular rhythm Extremity normal to inspection General Extremity: normal exam except as noted Skin Skin Narrative: Left groin area has some candidiasis reddened area with some satellites. Left buttocks has a small open area about the size of a dime very superficial. Right buttocks much bigger and has some depth about the size of a quarter. Neuro oriented x3 Psych Appearance: grossly normal Speech: normal speech Thought Content: normal thought content Judgement: judgement good Debridement Note Debridement Note Wound debrided: Left buttocks decubitus ulcer Wound Grade/Stage: Stage II Type of Debridement: Excisional debridement Anesthesia Used: 5% Lidocaine Gel Depth: Down to and including healthy tissue Percentage of wound debrided: 100 Instrument Used: 7mm curette Tissue Removed: Fibrin devitalized tissue Severity: Limited To Skin Breakdown Amount of bleeding with debridement: Mild Bleeding Controlled with: Pressure Patient tolerated procedure: Patient tolerated procedure well Post-Debridement Measurements and Additional Note: Post-Debridement Measurements/Treatment - Nurse 1 - General Ulcer Assessment Start: 11/06/22 10:04 Freq: Status: Active Protocol: PALOMO Activity Type Activity Date Activity User E-sign Co-sign Detail Recorded Client Recorded Date Recorded By Document 11/06/22 10:04 [facility] [id number] 11/06/22 10:13 [facility] 11/06/22 10:04 - Today's Visit Information Type of service 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 ) Arrival Mode Ambulatory Transfer Assistance None Patient Identification Verified (Name & Yes ) Patient Requires Transmission-Based No Precautions Finger Stick Blood Sugar(mg/dl) (if 94 indicated): Blood Sugar Stated by Patient Vital Signs Temperature (97.8 F-99.1 F) 97.2 F L Temperature Source Temporal Pulse Rate (60-100) 78 Pulse Location Monitor Respiratory Rate (12-18) 16 Respiratory rate source Observation Oxygen Delivery Method Room Air Blood Pressure (90/60-120/80) 173/68 H Blood Pressure Mean (mm Hg) 103 Source Monitor Position Sitting Blood Pressure Location Left Arm History Since Last Visit- (Skip if this is Patient's initial visit) Have you changed medications since your No last visit? Any new allergies or adverse reactions No Had a fall/change in ADL's that may No increase risk of falls Signs or symptoms of abuse and/or No neglect since last visit Have you been in the hospital since your No last visit? Has dressing in place as prescribed Yes Has compression in place as prescribed N/A Has offloadiing in place as prescribed N/A Experienced any changes in pain level or No management Left Footwear Regular Shoe Right Footwear Regular Shoe Pain Scale: 0-10 Numeric Is Patient Pain Free? Yes WC - Nurse 1 - General Ulcer Measurement Start: 11/06/22 10:04 Freq: Status: Active Protocol: Activity Type Activity Date Activity User E-sign Co-sign Detail Recorded Client Recorded Date Recorded By Document 11/06/22 10:04 [facility] [id number] 11/06/22 10:13 [facility] 11/06/22 10:04 Wound Center Nurse 1 #3- L BUTTOCK -Combined with other wound No -Current Size (cm) - Length 0.1 -Current Size (cm) - Width 0.1 -Current Size (cm) - Depth 0.1 -Total Square Cm 0.01 -Date of Last Picture (Recall this 11/06/22 field) -Photo Taken Yes -Epithelialization Large 67-100% -Tunneling No -Undermining/Tunneling No -Circular Undermining No -Texture (Karin-wound Skin Appearance) Assessed, Scarring -Moisture (Karin-wound Skin Appearance) Assessed -Color (Karin-wound Skin Appearance) Assessed -Temperature (Karin-wound Skin No Abnormality Appearance) (Pt Warm) -Tenderness on Palpation (Karin-wound No Skin Appearance) -Ulcer Cleansing Rinsed/ Irrigated with Saline -Foul Odor after Cleansing No WC - Nurse 2 - General Ulcer CM Notes Start: 11/06/22 10:04 Freq: Status: Active Protocol: Activity Type Activity Date Activity User E-sign Co-sign Detail Recorded Client Recorded Date Recorded By Document 11/06/22 10:19 [id number] 11/06/22 10:25 MW 11/06/22 10:19 Wound Center Nurse 2 -Time 10:19 -Correct Patient Yes -Correct Side, Site, Position Yes -Correct Procedure Yes -Procedure Performed Yes -Type of Procedure Debridement -Clinical Debridement Subcutaneous -Tissue Removed Subcutaneous -Post Debridement (cm) - Length 0.2 -Post Debridement (cm) - Width 0.2 -Post Debridement (cm) - Depth 0.1 -Total Square (Post) (cm) 0.04 -Area of Debridement (cm) - Length 0.2 -Area of Debridement (cm) - Width 0.2 -Total Square (Area) (cm) 0.04 -Tunneling No -Undermining/Tunneling No -Circular Undermining No -Wound/Ulcer Outcome Not Healed -Ulcer Cleansing Rinsed/ Irrigated with Saline -Foul Odor after Cleansing No -Bioengineered Tissue No -Bleeding Controlled with Pressure -Treatment Response Procedure Tolerated Well -Offloading No -Debridement - Subq, 1st 20sq cm Yes Pain Scale: 0-10 Numeric Is Patient Pain Free? Yes - Nurse 3 - General Ulcer D/C NN Start: 11/06/22 10:04 Freq: Status: Active Protocol: Activity Type Activity Date Activity User E-sign Co-sign Detail Recorded Client Recorded Date Recorded By Document 11/06/22 10:40 [facility] [id number] 11/06/22 10:40 [facility] 11/06/22 10:40 Wound Care Center Nurse 3 #3- L BUTTOCK -Ulcer Cleansing Rinsed/ Irrigated with Saline -Foul Odor after Cleansing No -Primary Dressing Applied Mepilex Border, NonAdherent Contact Layer -Other Dressing BACTROBAN, XEROFORM -Mepilex Border 1 Treatment Response Procedure Tolerated Well Pain Scale: 0-10 Numeric Is Patient Pain Free? Yes WC - Visit Discharge Discharge Condition Stable Ambulatory Status Ambulatory Transportation Private Auto Assessment/Plan Assessment/Plan (1) Type 2 diabetes mellitus: CODE(S): E11.9 - Type 2 diabetes mellitus without complications QUALIFIERS: Diabetes mellitus watermaster insulin use: without custodial use Diabetes mellitus complication status: with circulatory complication Diabetes mellitus complication detail: with other circulatory complications Qualified Code(s): E11.59 - Type 2 diabetes mellitus with other circulatory complications (2) Candidiasis of female genitalia: CODE(S): B37.31 - Acute candidiasis of vulva and vagina PLAN: Resolved but may continue as needed wash area with antibacterial soap apply bcto-itt-wgkixlz hydrocortisone cream and then sprinkle Zeasorb over top 2-3 times a day till gone. May also apply a pillowcase in the folds of her abdomen to keep the area dry during the night. (3) Decubitus ulcer of left buttock, stage 2: CODE(S): L89.322 - Pressure ulcer of left buttock, stage 2 PLAN: Wash left buttocks with antibacterial soap apply Bactroban then Xeroform and foam dressing to left buttocks cheek. Finish taking the linezolid pills twice daily for 14 days Follow-up in 1 week (4) Pressure injury of right buttock, stage 2: CODE(S): L89.312 - Pressure ulcer of right buttock, stage 2 PLAN: Same as above
[2022-11-13 10:21] VITALS: BP 180/58; PULSE 73; RESP 18; TEMP 35.8
--- NOTE | 2022-11-13 11:25 | PN.PCM_ITS ---
History of Present Illness Date of Service: 11/13/22 Chief Complaint: Pressure injury to right buttock and left buttocks pressure sores from sitting in her recliner History of Wound: Patient is an 82-year-old female presenting to the wound center for treatment of pressure injury to her right buttock and left buttocks. She has a past medical history as listed above. The patient states this wound has been present intermittently for the past 5 years. She states it feels painful only when sitting, and has tried Neosporin and gauze for treatment in the past, but it is not healing this time which prompted a referral to the wound center from her PCP. The patient sleeps in a recliner nightly due to LUCERO, but she refuses to wear her CPAP mask due to anxiety. She states she has a gel cushion and will try using it. She is currently using an eggcrate that are probably old and needs to be replaced if she does not use the gel. She has a past medical history of type 2 diabetes with her last A1c at 7.3. She states she drinks Ensure protein drinks at least 1/day. She denies any systemic or localized signs of infection at this time. Past medical, family, and social history reviewed and not pertinent to the current visit and all other systems reviewed and negative with exception of those listed above. Patient also has concerned about her groin breaking down with yeast infections become painful and her feet she gets sweaty feet and has tinea pedis. Progress of Wound: All areas are closed patient still complains of pain though suggested she get a gel cushion she says she is try that but we suggest that she is probably not got a good 1 and she is going to try it again. Also the dressings are not being delivered from her Medicare products for what ever reason. We will try using DuoDERM on her and see if that works better for her and she can leave it on for a few days. Subjective Subjective Patient was very happy with that idea and will continue to use them and possibly get a gel cushion Objective Data Objective Data Patient is healed and may be discharged from the wound center Vital Signs: Vital Signs Temp Pulse Resp BP O2 Del Method 96.5 F L 73 18 180/58 H Room Air 11/13/22 10:11/13/22 10:11/13/22 10:11/13/22 10:11/06/22 10:04 Oxygen Delivery Method Room Air Lab / Micro Data Attestation: I reviewed the patient's lab results. Physical Exam Const oriented x3 General Appearance: cooperative Exam Limitations: no limitations HEENT normocephalic Head and Scalp: normal to inspection Face and Sinus: normal facial exam External Ear: external ears normal Eyes General Eye: normal appearance of both eyes Neck full ROM General: normal visual inspection Resp normal respiratory effort Effort and Inspection: able to speak in complete sentences Auscultation: clear to auscultation bilaterally Cardio regular rate and regular rhythm Palpation: normal PMI Rate: regular rate Rhythm: regular rhythm Extremity normal to inspection General Extremity: normal exam except as noted Skin Skin Narrative: Left groin area has some candidiasis reddened area with some satellites. Left buttocks has a small open area about the size of a dime very superficial. Right buttocks much bigger and has some depth about the size of a quarter. Neuro oriented x3 Psych Appearance: grossly normal Speech: normal speech Thought Content: normal thought content Judgement: judgement good Debridement Note Debridement Note No debridement was completed: No debridement was completed today Post-Debridement Measurements and Additional Note: Post-Debridement Measurements/Treatment - Nurse 1 - General Ulcer Assessment Start: 11/06/22 10:04 Freq: Status: Active Protocol: PALOMO Activity Type Activity Date Activity User E-sign Co-sign Detail Recorded Client Recorded Date Recorded By Document 11/06/22 10:04 [facility] [id number] 11/06/22 10:13 [facility] Document 11/13/22 10:21 [id number] 11/13/22 10:22 RB 11/06/22 11/13/22 10:04 10:21 - Today's Visit Information Type of service Follow-up Visit Follow-up Visit (Physician/MICROFABRICATION ENGINEER MANAGER (Physician/MICROFABRICATION ENGINEER MANAGER ) ) Arrival Mode Ambulatory Ambulatory Transfer Assistance None None Patient Identification Verified (Name & Yes Yes ) Patient Requires Transmission-Based No No Precautions Finger Stick Blood Sugar(mg/dl) (if 94 indicated): Blood Sugar Stated by Patient Vital Signs Temperature (97.8 F-99.1 F) 97.2 F L 96.5 F L Temperature Source Temporal Temporal Pulse Rate (60-100) 78 73 Pulse Location Monitor Monitor Respiratory Rate (12-18) 16 18 Respiratory rate source Observation Observation Oxygen Delivery Method Room Air Blood Pressure (90/60-120/80) 173/68 H 180/58 H Blood Pressure Mean (mm Hg) 103 98 Source Monitor Monitor Position Sitting Semi-Fowlers Blood Pressure Location Left Arm Left Arm History Since Last Visit- (Skip if this is Patient's initial visit) Have you changed medications since your No No last visit? Any new allergies or adverse reactions No No Had a fall/change in ADL's that may No No increase risk of falls Signs or symptoms of abuse and/or No No neglect since last visit Have you been in the hospital since your No No last visit? Has dressing in place as prescribed Yes Yes Has compression in place as prescribed N/A No Has offloadiing in place as prescribed N/A Yes Experienced any changes in pain level or No No management Left Footwear Regular Shoe Right Footwear Regular Shoe Pain Scale: 0-10 Numeric Is Patient Pain Free? Yes Yes WC - Nurse 1 - General Ulcer Measurement Start: 11/06/22 10:04 Freq: Status: Active Protocol: Activity Type Activity Date Activity User E-sign Co-sign Detail Recorded Client Recorded Date Recorded By Document 11/06/22 10:04 [facility] [id number] 11/06/22 10:13 [facility] Document 11/13/22 10:21 RB [id number] 11/13/22 10:22 RB 11/06/22 11/13/22 10:04 10:21 Wound Center Nurse 1 #3- L BUTTOCK -Combined with other wound No No -Current Size (cm) - Length 0.1 0.1 -Current Size (cm) - Width 0.1 0.1 -Current Size (cm) - Depth 0.1 0.1 -Total Square Cm 0.01 0.01 -Date of Last Picture (Recall this 11/06/22 field) -Photo Taken Yes Yes -Epithelialization Large 67-100% -Tunneling No No -Undermining/Tunneling No No -Circular Undermining No No -Exudate Amt Small -Exudate Type Serosanguineous -Wound Margin Distinct, Outline Attached -Granulation Amt Large (67-100%) -Granulation Quality [employer] -Slough/Fibrin Yes -Necrosis Amt Small (1-33%) -Necrotic Tissue Type Adherent Slough -Structure Exposed N/A -Texture (Karin-wound Skin Appearance) Assessed, Assessed, Scarring Scarring -Moisture (Karin-wound Skin Appearance) Assessed Assessed -Color (Karin-wound Skin Appearance) Assessed Assessed -Temperature (Karin-wound Skin No Abnormality No Abnormality Appearance) (Pt Warm) (Pt Warm) -Tenderness on Palpation (Karin-wound No No Skin Appearance) -Ulcer Cleansing Rinsed/ Wound Cleanser Irrigated with Saline -Foul Odor after Cleansing No No -Anesthetic Used 5% Lidocaine Gel WC - Nurse 2 - General Ulcer CM Notes Start: 11/06/22 10:04 Freq: Status: Active Protocol: Activity Type Activity Date Activity User E-sign Co-sign Detail Recorded Client Recorded Date Recorded By Document 11/06/22 10:19 MW [id number] 11/06/22 10:25 MW Document 11/13/22 10:31 MW [id number] 11/13/22 10:31 MW 11/06/22 11/13/22 10:19 10:31 Wound Center Nurse 2 #3- L BUTTOCK -Time 10:19 10:31 -Correct Patient Yes Yes -Correct Side, Site, Position Yes Yes -Correct Procedure Yes Yes -Procedure Performed Yes No -Type of Procedure Debridement -Clinical Debridement Subcutaneous -Tissue Removed Subcutaneous -Post Debridement (cm) - Length 0.2 0 -Post Debridement (cm) - Width 0.2 0 -Post Debridement (cm) - Depth 0.1 0 -Total Square (Post) (cm) 0.04 0 -Area of Debridement (cm) - Length 0.2 -Area of Debridement (cm) - Width 0.2 -Total Square (Area) (cm) 0.04 -Tunneling No -Undermining/Tunneling No -Circular Undermining No -Wound/Ulcer Outcome Not Healed Healed- Epithelialized -Ulcer Cleansing Rinsed/ Irrigated with Saline -Foul Odor after Cleansing No -Bioengineered Tissue No -Bleeding Controlled with Pressure -Treatment Response Procedure Tolerated Well -Offloading No -Debridement - Subq, 1st 20sq cm Yes Pain Scale: 0-10 Numeric Is Patient Pain Free? Yes Yes JUAN C - Nurse 3 - General Ulcer D/C NN Start: 11/06/22 10:04 Freq: Status: Active Protocol: Activity Type Activity Date Activity User E-sign Co-sign Detail Recorded Client Recorded Date Recorded By Document 11/06/22 10:40 [facility] [id number] 11/06/22 10:40 [facility] Document 11/13/22 10:31 [id number] 11/13/22 10:32 MW 11/06/22 11/13/22 10:40 10:31 Wound Care Center Nurse 3 #3- L BUTTOCK -Ulcer Cleansing Rinsed/ Irrigated with Saline -Foul Odor after Cleansing No -Primary Dressing Applied Mepilex Border, NonAdherent Contact Layer -Other Dressing BACTROBAN, comfeel XEROFORM -Mepilex Border 1 Treatment Response Procedure Procedure Tolerated Well Tolerated Well Pain Scale: 0-10 Numeric Is Patient Pain Free? Yes Yes WC - Visit Discharge Discharge Condition Stable Stable Ambulatory Status Ambulatory Ambulatory Transportation Private Auto Private Auto Accompanied by self Medication Reconcilliation completed & No provided to patient/care provider Clinical Summary of Care Provided Yes Assessment/Plan Assessment/Plan (1) Type 2 diabetes mellitus: CODE(S): E11.9 - Type 2 diabetes mellitus without complications QUALIFIERS: Diabetes mellitus half-way insulin use: without half-way use Diabetes mellitus complication status: with circulatory complication Diabetes mellitus complication detail: with other circulatory complications Qualified Code(s): E11.59 - Type 2 diabetes mellitus with other circulatory complications (2) Candidiasis of female genitalia: CODE(S): B37.31 - Acute candidiasis of vulva and vagina PLAN: Resolved (3) Decubitus ulcer of left buttock, stage 2: CODE(S): L89.322 - Pressure ulcer of left buttock, stage 2 PLAN: Resolved patient is discharged from the wound center (4) Pressure injury of right buttock, stage 2: CODE(S): L89.312 - Pressure ulcer of right buttock, stage 2 PLAN: Same as above
== END 2022-11-15 07:33 | disposition home or self-care (01) ==
LOC: WC 10:00
PROVIDERS: PCP Family Medicine; Referring Provider Family Medicine; Visit Provider Nurse Practitioner
DX: L89.312 Pressure ulcer of right buttock, stage 2 (principal); L89.322 Pressure ulcer of left buttock, stage 2; E11.9 Type 2 diabetes mellitus without complications; G47.33 Obstructive sleep apnea (adult) (pediatric); B37.31 Acute candidiasis of vulva and vagina
CPT/HCPCS: 11042; 99212; G0463

== ENCOUNTER → 2023-06-12 | Outpatient (CLI) | payer MEDICARE, OTHER, SELFPAY ==
[2023-06-12 10:54] LABS: Anion Gap 5 (5-15); BUN 21 mg/dL (7-18); BUN/Creat Ratio 25.5 RATIO (10-20); Calcium,Total 9.1 mg/dL (8.5-10.1); Chloride 108 mmol/L (98-107); Creatinine, Serum 0.82 mg/dL (0.55-1.02); EST Glomerular Filtration Rate 70 mL/min (>60); Est Glom Filt Rate - Afr Amer 85 mL/min (>60); Glucose 172 mg/dL (74-106); Sodium Level 140 mmol/L (136-145)
== END | disposition home or self-care (01) ==
LOC: MFPLAB 09:17
PROVIDERS: PCP Family Medicine; Visit Provider Internal Medicine Cardiovascular Disease
DX: I10 Essential (primary) hypertension (principal)
CPT/HCPCS: 36415; 80048

== ENCOUNTER → 2023-07-10 | Outpatient (CLI) | payer MEDICARE, OTHER, SELFPAY ==
[2023-07-10 16:33] LABS: Anion Gap 9 (5-15); BUN 28 mg/dL (7-18); BUN/Creat Ratio 26.2 RATIO (10-20); Calcium,Total 9.5 mg/dL (8.5-10.1); Chloride 109 mmol/L (98-107); Creatinine, Serum 1.07 mg/dL (0.55-1.02); EST Glomerular Filtration Rate 52 mL/min (>60); Est Glom Filt Rate - Afr Amer 63 mL/min (>60); Glucose 240 mg/dL (74-106); Sodium Level 138 mmol/L (136-145)
== END | disposition home or self-care (01) ==
LOC: MFPLAB 11:48
PROVIDERS: PCP Family Medicine; Visit Provider Family Medicine
DX: E87.6 Hypokalemia (principal)
CPT/HCPCS: 36415; 80048

== ENCOUNTER 2023-08-25 13:01 | Outpatient (RCR) | payer MEDICARE, OTHER, SELFPAY ==
[2023-08-25 13:24] VITALS: BP 153/57; PULSE 75; RESP 18; TEMP 35.8; BMI 28.5
--- NOTE | 2023-08-25 14:50 | PCM.WC.HP ---
History of Present Illness Date of Service: 08/25/23 Chief Complaint: Pressure injury to right buttock and left buttocks pressure sores from sitting in her recliner History of Wound: Patient is an 83-year-old female presenting to the wound center for treatment of pressure injury to her right buttock and left buttocks. She has been seen here in the past for the same issues. The patient states that they have been occurring on and off for years. She admits that she sits in her recliner for long periods of time. She sits on an egg crate cushion. She states that this most recent time she feels that they reoccurred because she has been wearing Depends disposable under wear. She initially was on Jardiance, but then was changed to Farxiga for her diabetes and it makes her have issues urinating. She was having issues making it to the bathroom. She also has a history of over active bladder. She states she just recently stopped the Farxiga. She went into her PCP and was referred to the wound healing center. She has been putting over the counter cream/ointments on her ulcers. She also has used left over gel from when she was last seen her. She does not have help at home to help with her ulcer care. She has a history of Type 2 DM (HgA1c 7.7 10/02/22), pacemaker, OAB, GERD, hiatal hernia, IBS, HTN. Today she denies any fever, chills, nausea, or vomiting. Progress of Wound: Bilateral buttock ulcers are superficial, erythematous. Minimal amount of drainage. Patient has been doing her own dressing changes. [facility] Medical History (Updated 08/26/23 @ 13:02 by Morelia Damon CHURCH BUSINESS ADMINISTRATOR, CHURCH BUSINESS ADMINISTRATOR-C) Decubitus ulcer of left buttock, stage 2 RBBB Mobitz (type) II atrioventricular block Presence of permanent cardiac pacemaker (~05/07/21) Essential hypertension Overactive bladder Type 2 diabetes mellitus IBS (irritable bowel syndrome) Pressure injury of right buttock, stage 2 Diarrhea GERD (gastroesophageal reflux disease) Home Medications ?Medication ?Instructions ?Recorded ?Last Taken ?Type omeprazole 40 mg capsule,delayed 40 mg PO BID 05/02/16 Unknown History release psyllium husk (aspartame) 3.4 gram 1 packet PO QHS 05/02/16 Unknown History oral powder packet dicyclomine 20 mg tablet 20 mg PO BID 11/30/20 Unknown History glimepiride 4 mg tablet 4 mg PO QAM 10/02/21 Unknown History latanoprost 0.005 % eye drops 1 drp ophthalmic (eye) QPM 10/02/21 Unknown History metformin 500 mg tablet 500 mg PO DAILY 10/02/21 Unknown History timolol maleate 0.5 % eye drops 1 drp ophthalmic (eye) BID 10/02/21 Unknown History (Timoptic) cholecalciferol (vitamin D3) 125 125 mcg PO DAILY 10/04/21 Unknown History mcg (5,000 unit) tablet mirabegron 25 mg tablet,extended 25 mg PO DAILY 05/28/22 Unknown History release 24 hr Lactobacillus rhamnosus-Bifidobac. 1 cap PO DAILY 10/23/22 Unknown History animalis 3 billion cell capsule (RSens) dapagliflozin propanediol 10 mg 10 mg PO QDAY 05/27/23 Unknown History tablet (Farxiga) lisinopril 10 mg tablet 10 mg PO DAILY #90 tabs 05/27/23 Unknown Rx spironolactone 25 mg tablet 25 mg PO DAILY #30 tabs 06/12/23 Unknown Rx Allergy/AdvReac Type Severity Reaction Status Date / Time pregabalin (From Lyrica) AdvReac Unknown Balance/Cognition Verified 05/27/23 14:20 Issues cefuroxime (From Ceftin) AdvReac Itching Verified 05/27/23 14:20 metformin AdvReac Diarrhea Verified 05/27/23 14:20 oxybutynin AdvReac Swelling Verified 05/27/23 14:20 Family History (Reviewed 08/26/23 @ 12:18 by Morelia Damon CHURCH BUSINESS ADMINISTRATOR, CHURCH BUSINESS ADMINISTRATOR-C) Grandfather Myocardial infarction Mother Cancer Father CVA (cerebral vascular accident) Brother Cancer Pancreatic CA CAD (coronary artery disease) History of coronary artery bypass surgery Brother Cancer Prostate Presence of permanent cardiac pacemaker Brother CAD (coronary artery disease) History of coronary artery bypass surgery x2 Heart valve disorder Uncle Myocardial infarction Sister CVA (cerebral vascular accident), Onset Age: 40 Congestive heart failure Brother Cancer Surgical History (Reviewed 08/26/23 @ 12:18 by Morelia Damon CHURCH BUSINESS ADMINISTRATOR, CHURCH BUSINESS ADMINISTRATOR-C) Cornea transplant recipient History of cataract extraction History of laparoscopic cholecystectomy Status post mastoidectomy H/O total hysterectomy with bilateral salpingo-oophorectomy (BSO) Social History Smoking Status: Never smoker alcohol intake: current alcohol intake frequency: holidays/special occasions only substance use type: does not use caffeine: Yes ROS Constitutional Constitutional: Denies fever(s), frequent falls or headache(s) Eyes Eyes: Reports as per HPI ENT HEENT: Reports none Cardiovascular Cardiovascular: Reports as per HPI; Denies chest pain Respiratory/Chest Respiratory/Chest: Reports none Gastrointestinal Gastrointestinal: Reports as per HPI Genitourinary Genitourinary: Reports as per HPI Musculoskeletal Musculoskeletal: Reports joint pain and joint stiffness Integumentary Integumentary: Reports skin ulcer Neurologic Neurologic: Reports none Psychiatric Psychiatric: Reports none Endocrine Endocrinology: Reports none Hematologic/Lymphatic Hematologic/Lymphatic: Reports none Vital Signs Vital Signs Vital Signs: 08/25/23 13:24 Temperature 96.4 F L Temperature Source Temporal Pulse Rate 75 Respiratory Rate 18 Blood Pressure 153/57 H Blood Pressure Mean 89 Blood Pressure Source Monitor Blood Pressure Position Sitting Blood Pressure Location Right Arm Oxygen Delivery Method Room Air Weight Weight: 166 lb Body Mass Index (BMI) 28.5 Physical Exam Const alert, oriented x3 and no apparent distress General Appearance: cooperative HEENT normocephalic Head and Scalp: atraumatic Eyes General Eye: normal appearance of both eyes Neck full ROM Lymph Lymphatic: no lymphedema noted Resp normal respiratory effort, normal air movement and clear to auscultation bilaterally Effort and Inspection: able to speak in complete sentences Cardio regular rate and regular rhythm GI normal to inspection, nondistended, normoactive bowel sounds, soft to palpation and non-tender Back/Spine normal ROM Extremity full ROM and normal capillary refill Skin Wound Narrative: bilateral buttocks with superficial ulcers that are erythematous from her sitting on them. Ulcer bed is pink. Neuro oriented x3 Psych mental status grossly normal and cooperative Psych Narrative: Very talkative. Debridement Note Debridement Note Wound debrided: #5 right buttock ulcer Wound Grade/Stage: Stage 3 Type of Debridement: Excisional debridement Anesthesia Used: 4% Lidocaine Solution Depth: Down to and including healthy tissue and in the subcutaneous layer Percentage of wound debrided: 100 Instrument Used: 3mm curette Tissue Removed: Non viable tissue and slough Severity: Fat Layer Exposed Amount of bleeding with debridement: Mild Bleeding Controlled with: Compression and gauze Patient tolerated procedure: Patient tolerated procedure well Post-Debridement Measurements and Additional Note: Post-Debridement Measurements/Treatment - Nurse 1 - General Ulcer Assessment Start: 08/25/23 13:24 Freq: Status: Active Protocol: PALOMO Activity Type Activity Date Activity User E-sign Co-sign Detail Recorded Client Recorded Date Recorded By Document 08/25/23 13:24 KW k 08/25/23 13:29 KW 08/25/23 13:24 - Today's Visit Information Type of service Initial Visit Arrival Mode Ambulatory Patient Identification Verified (Name & Yes ) Finger Stick Blood Sugar(mg/dl) (if 103 indicated): Blood Sugar Stated by Patient Height and Weight Height 5 ft 4 in Weight 166 lb Weight in Pounds 166.0 lbs Body Mass Index (BMI) 28.5 BMI Classification Overweight BSA - Meenakshi 1.81 Vital Signs Temperature (97.8 F-99.1 F) 96.4 F L Temperature Source Temporal Pulse Rate (60-100) 75 Pulse Location Monitor Respiratory Rate (12-18) 18 Respiratory rate source Observation Oxygen Delivery Method Room Air Blood Pressure (90/60-120/80) 153/57 H Blood Pressure Mean 89 Source Monitor Position Sitting Blood Pressure Location Right Arm History Since Last Visit- (Skip if this is Patient's initial visit) Left Footwear Regular Shoe Right Footwear Regular Shoe Pain Scale: 0-10 Numeric Is Patient Pain Free? Yes Communication Assessment Preferred language Romanian Supervisory Training Specialist Required No Able to Read Yes Able to Write Yes Communication Tools None Caregiver Communication Skills No Impairment Impairment Right Hearing Abillity Use of Hearing Aid Left Hearing Abillity Use of Hearing Aid Visual Assistive Devices Glasses Teaching Assessment Preferences Verbal,Written, Demonstration Barriers to Learning None Readiness To Learn Excellent Willingness to Engage in Self Management High Activies Readiness to Engage in Self Management High Activities Anxiety Level Calm Cooperation Cooperative Perception Coherent Interest in Health Problem Asks Questions Education Importance Acknowledges Need Does Patient Smoke tobacco or other Yes substances Smoking Status Never smoker Is Patient Diabetic No Functional Assessment Recent Decline in Ability to Perform Denies Any Declines Culture/Methodist/Continuous Loft Operator Cultural/Methodist Needs that may affect No Treatment Plan Would you allow our hospital director of casework services to No meet you for the purpose of spiritual/ emotional support? Continuous Loft Operator to contact place of buddhist No WC - Nurse 1 - General Ulcer Measurement Start: 08/25/23 13:24 Freq: Status: Active Protocol: Activity Type Activity Date Activity User E-sign Co-sign Detail Recorded Client Recorded Date Recorded By Document 08/25/23 13:24 KW k 08/25/23 13:29 KW 08/25/23 13:24 Wound Center Nurse 1 #5 RT BUTTOCK -Current Size (cm) - Length 0.6 -Current Size (cm) - Width 0.4 -Current Size (cm) - Depth 0.2 -Total Square Cm 0.24 -Date of Last Picture (Recall this 08/25/23 field) -Exudate Amt Small -Exudate Type Serosanguineous -Wound Margin Distinct, Outline Attached -Granulation Amt Large (67-100%) -Granulation Quality [place] -Texture (Karin-wound Skin Appearance) Assessed -Moisture (Karin-wound Skin Appearance) Assessed -Color (Karin-wound Skin Appearance) Assessed -Temperature (Karin-wound Skin No Abnormality Appearance) (Pt Warm) -Tenderness on Palpation (Karin-wound No Skin Appearance) -Ulcer Cleansing Rinsed/ Irrigated with Saline -Foul Odor after Cleansing No -Anesthetic Used 5% Lidocaine Gel #4 LT BUTTOCK -Current Size (cm) - Length 2.2 -Current Size (cm) - Width 2 -Current Size (cm) - Depth 0.1 -Total Square Cm 4.4 -Date of Last Picture (Recall this 08/25/23 field) -Exudate Amt Small -Exudate Type Serosanguineous -Wound Margin Distinct, Outline Attached -Granulation Amt Large (67-100%) -Granulation Quality [place] -Texture (Karin-wound Skin Appearance) Assessed -Moisture (Karin-wound Skin Appearance) Assessed -Color (Karin-wound Skin Appearance) Assessed -Temperature (Karin-wound Skin No Abnormality Appearance) (Pt Warm) -Tenderness on Palpation (Karin-wound No Skin Appearance) -Ulcer Cleansing Rinsed/ Irrigated with Saline -Foul Odor after Cleansing No -Anesthetic Used 5% Lidocaine Gel WC - Nurse 2 - General Ulcer CM Notes Start: 08/25/23 13:24 Freq: Status: Active Protocol: Activity Type Activity Date Activity User E-sign Co-sign Detail Recorded Client Recorded Date Recorded By Document 08/25/23 14:03 JF 0000 08/25/23 14:06 JF 08/25/23 14:03 Wound Center Nurse 2 #5 RT BUTTOCK -Time 14:04 -Correct Patient Yes -Correct Side, Site, Position Yes -Correct Procedure Yes -Procedure Performed Yes -Type of Procedure Debridement -Clinical Debridement Subcutaneous -Tissue Removed Subcutaneous -Post Debridement (cm) - Length 0.8 -Post Debridement (cm) - Width 0.5 -Post Debridement (cm) - Depth 0.1 -Total Square (Post) (cm) 0.40 -Area of Debridement (cm) - Length 0.8 -Area of Debridement (cm) - Width 0.5 -Total Square (Area) (cm) 0.40 -Tunneling No -Undermining/Tunneling No -Circular Undermining No -Wound/Ulcer Outcome Not Healed -Ulcer Cleansing Rinsed/ Irrigated with Saline -Foul Odor after Cleansing No -Bioengineered Tissue No -Bleeding Controlled with Pressure -Treatment Response Procedure Tolerated Well -Offloading No -Debridement - Subq, 1st 20sq cm No #4 LT BUTTOCK -Time 14:04 -Correct Patient Yes -Correct Side, Site, Position Yes -Correct Procedure Yes -Procedure Performed Yes -Type of Procedure Debridement -Clinical Debridement Subcutaneous -Tissue Removed Subcutaneous -Post Debridement (cm) - Length 1.3 -Post Debridement (cm) - Width 1.0 -Post Debridement (cm) - Depth 0.1 -Total Square (Post) (cm) 1.30 -Area of Debridement (cm) - Length 1.3 -Area of Debridement (cm) - Width 1.0 -Total Square (Area) (cm) 1.30 -Tunneling No -Undermining/Tunneling No -Circular Undermining No -Wound/Ulcer Outcome Not Healed -Ulcer Cleansing Rinsed/ Irrigated with Saline -Foul Odor after Cleansing No -Bioengineered Tissue No -Bleeding Controlled with Pressure -Treatment Response Procedure Tolerated Well -Offloading No -Debridement - Subq, 1st 20sq cm Yes Pain Scale: 0-10 Numeric Is Patient Pain Free? Yes WC - Nurse 3 - General Ulcer D/C NN Start: 08/25/23 13:24 Freq: Status: Active Protocol: Activity Type Activity Date Activity User E-sign Co-sign Detail Recorded Client Recorded Date Recorded By Document 08/25/23 14:40 DL [email or web address] 08/25/23 14:41 DL 08/25/23 14:40 Wound Care Center Nurse 3 #5 RT BUTTOCK -Ulcer Cleansing Rinsed/ Irrigated with Saline -Foul Odor after Cleansing No -Primary Dressing Applied C Hydrogel ($), Mepilex Border -Mepilex Border 1 #4 LT BUTTOCK -Ulcer Cleansing Rinsed/ Irrigated with Saline -Foul Odor after Cleansing No -Primary Dressing Applied Mepilex Border -Other Dressing hydrogel -Mepilex Border 1 Treatment Response Procedure Tolerated Well Pain Scale: 0-10 Numeric Is Patient Pain Free? Yes WC - Visit Discharge Discharge Condition Stable Ambulatory Status Ambulatory Transportation Private Auto Additional Wound Wound debrided: #4 left buttock ulcer Laterality: Left Wound Grade/Stage: Stage 3 Type of Debridement: Excisional debridement Anesthesia Used: 4% Lidocaine Solution Depth: Down to and including healthy tissue and in the subcutaneous layer Percentage of wound debrided: 100 Instrument Used: 3mm curette Tissue Removed: Non viable tissue and slough Severity: Fat Layer Exposed Amount of bleeding with debridement: Mild Bleeding Controlled with: Compression and gauze Patient tolerated procedure: Patient tolerated procedure well Charges/Coding Visit Charges Office Visits / Consults: [id number] OV L4 Est 30min (25 modifier) Procedures Integumentary [id number]: [id number] Dilia subq tissue 20 sq cm/< Assessment/Plan Assessment/Plan (1) Stage III pressure ulcer of right buttock: CODE(S): L89.313 - Pressure ulcer of right buttock, stage 3 (2) Stage III pressure ulcer of left buttock: CODE(S): L89.323 - Pressure ulcer of left buttock, stage 3 (3) Type 2 diabetes mellitus: CODE(S): E11.9 - Type 2 diabetes mellitus without complications QUALIFIERS: Diabetes mellitus ad terminal makeup operator insulin use: without shelter use Diabetes mellitus complication status: with circulatory complication Diabetes mellitus complication detail: with other circulatory complications Qualified Code(s): E11.59 - Type 2 diabetes mellitus with other circulatory complications (4) Overactive bladder: CODE(S): N32.81 - Overactive bladder PLAN: Plan Patient evaluated at the wound healing center today. Wound care - Wash buttocks well daily with soap and water. Place Collagen Hydrogel covered with [place] SAP/foam bordered dressing daily. Encouraged to off load as much as possible. Patient admits to sitting for long periods of time. She states that she had been using a gel cushion from a wheelchair but admits that it is over 20 years old. Most recently she has been using egg crate foam cushion. Counseled on frequent repositioning (every 15-20 minutes), off loading by standing or lying down. She wears disposable underwear which may contribute to the issues if they are wet or she is perspiring. Encouraged good hygiene. Discussed increasing protein intake and supplementation. Follow up 2 weeks since I will be out of town next week. Instructed to call or come in sooner if she develops any questions or concerns. Greater than 30 minutes spent with patient, reviewing previous notes/charts and documenting.
== END 2023-08-31 23:59 | disposition home or self-care (01) ==
LOC: WC 13:01
PROVIDERS: PCP Family Medicine; Referring Provider Family Medicine; Visit Provider Nurse Practitioner Family
DX: L89.313 Pressure ulcer of right buttock, stage 3 (principal); L89.323 Pressure ulcer of left buttock, stage 3; E11.59 Type 2 diabetes mellitus with other circulatory complications; K21.9 Gastro-esophageal reflux disease without esophagitis; I10 Essential (primary) hypertension; Z95.0 Presence of cardiac pacemaker; N32.81 Overactive bladder; K58.9 Irritable bowel syndrome, unspecified; Z79.84 Long term (current) use of oral hypoglycemic drugs; Z79.899 Other long term (current) drug therapy
CPT/HCPCS: 11042; 99213; G0463

== ENCOUNTER → 2023-09-02 | Outpatient (CLI) | payer MEDICARE, OTHER, SELFPAY ==
--- NOTE | 2023-09-02 13:04 | BI_ITS ---
MAMMOGRAPHY - BILATERAL SCREENING 3-D TOMOSYNTHESIS REASON FOR EXAM: Female, 83 years old. screening PERTINENT HISTORY: No significant family history. TECHNIQUE: 2-D mammograms and 3-D Tomosynthesis of the breast (s) were performed. CAD was performed. COMPARISON: 08/06/2022 FINDINGS: The breast composition is Extermely dense tissue. Scattered benign calcifications are seen. No dominant mass. No suspicious callus cases right breast. Grouped punctate calcifications upper outer quadrant left breast at posterior depth and magnification views are recommended for further evaluation.. No architectural distortion is identified. There is no skin thickening or retraction. BI/SCRN MAMM (CAD)W/PIERRE BILAT IMPRESSION: Further imaging evaluation is recommended. ASSESSMENT CATEGORY: BIRADS Category 0: Incomplete. Need additional imaging evaluation as above. A letter regarding these results will be sent to the patient by the facility within 30 days. FOLLOW UP RECOMMENDATION: Additional imaging recommended as above. (E) Approximately 10% of breast cancers are not detected by mammography. A normal mammogram should not delay biopsy of a clinically suspicious abnormality. Electronically Signed: Greyson Snyder MD at 19:15 EDT ,
== END | disposition home or self-care (01) ==
LOC: OPBI 13:04
PROVIDERS: PCP Family Medicine; Referring Provider Family Medicine; Visit Provider Family Medicine
DX: Z12.31 Encounter for screening mammogram for malignant neoplasm of breast (principal)
CPT/HCPCS: 77063; 77067

== ENCOUNTER → 2023-09-09 | Outpatient (CLI) | payer MEDICARE, OTHER, SELFPAY ==
--- NOTE | 2023-09-09 14:08 | BI_ITS ---
MAMMOGRAPHY - UNILATERAL DIAGNOSTIC: LEFT BREAST REASON FOR EXAM: Female, 83 years old. Abnormal screening mammogram. PERTINENT HISTORY: TECHNIQUE: Compression magnification views of the left breast were obtained. CAD: Full Field Digital Mammography with Computer Added Detection was performed. COMPARISON: Comparison is made with prior study dated September 02, 2023. FINDINGS: Breast Composition: The breasts are extremely dense, which lowers the sensitivity of mammography. There are no dominant masses or suspicious calcifications. The calcifications represent vascular calcifications. Routine mammographic follow-up recommended. No other significant abnormalities are identified. BI/DIAG MAMM W/CAD, UNILAT IMPRESSION: Negative unilateral diagnostic mammogram. Yearly followup mammogram recommended. (A) ASSESSMENT CATEGORY: BIRADS Category 2: Benign. A letter regarding these results will be sent to the patient by the facility within 30 days. Approximately 10% of breast cancers are not detected by mammography. A normal mammogram should not delay biopsy of a clinically suspicious abnormality. Electronically Signed: Johnathan Jacob MD at 14:57 EDT ,
== END | disposition home or self-care (01) ==
LOC: OPBI 14:05
PROVIDERS: PCP Family Medicine; Referring Provider Family Medicine; Visit Provider Family Medicine
DX: R92.8 Other abnormal and inconclusive findings on diagnostic imaging of breast (principal)
CPT/HCPCS: 77065

== ENCOUNTER 2023-09-24 13:45 | Outpatient (RCR) | payer MEDICARE, OTHER, SELFPAY ==
[2023-09-01 00:50] VITALS: BP 153/57; PULSE 75; RESP 18; TEMP 35.8; BMI 28.5
[2023-09-08 13:19] VITALS: BP 160/57; PULSE 70; RESP 16; TEMP 35.8; BMI 28.5
--- NOTE | 2023-09-08 13:46 | PCM.WC.PN ---
History of Present Illness Date of Service: 09/08/23 Chief Complaint: Pressure injury to right buttock and left buttocks pressure sores from sitting in her recliner History of Wound: Patient is an 83-year-old female presenting to the wound center for treatment of pressure injury to her right buttock and left buttocks. She has been seen here in the past for the same issues. The patient states that they have been occurring on and off for years. She admits that she sits in her recliner for long periods of time. She sits on an egg crate cushion. She states that this most recent time she feels that they reoccurred because she has been wearing Depends disposable under wear. She initially was on Jardiance, but then was changed to Farxiga for her diabetes and it makes her have issues urinating. She was having issues making it to the bathroom. She also has a history of over active bladder. She states she just recently stopped the Farxiga. She went into her PCP and was referred to the wound healing center. She has been putting over the counter cream/ointments on her ulcers. She also has used left over gel from when she was last seen her. She does not have help at home to help with her ulcer care. She has a history of Type 2 DM (HgA1c 7.7 10/02/22), pacemaker, OAB, GERD, hiatal hernia, IBS, HTN. Today she denies any fever, chills, nausea, or vomiting. Progress of Wound: Patient complaining of feeling dehydrated and feeling nauseated. Her blood sugar this morning was 120's. Retook blood sugar here and it was 181. Patient then clarified that she HAD been feeling nauseated and dehydrated but she at a large breakfast at 10 o'clock (including a piece of peach pie) and drank a lot of water and is feeling much better. Right buttock ulcer is healed today. Left buttock cluster ulcers are superficial. She denies issues with the collagen hydrogel application. Patient has been doing her own dressing changes. She states that she still has been sitting more than she should. She states that the issue is that she falls asleep in her recliner. Objective Data Objective Data Vital Signs: Vital Signs Temp Pulse Resp BP O2 Del Method 96.5 F L 70 16 160/57 H Room Air 09/08/23 13:19 09/08/23 13:19 09/08/23 13:19 09/08/23 13:19 09/08/23 13:19 Oxygen Delivery Method Room Air Weight: 166 lb Body Mass Index (BMI) 28.5 Charges/Coding Procedures Integumentary [id number]: [id number] Dilia subq tissue 20 sq cm/< Debridement Note Debridement Note Wound debrided: #4 left buttock ulcer cluster Laterality: Left Wound Grade/Stage: Stage 3 Type of Debridement: Excisional debridement Anesthesia Used: 4% Lidocaine Solution Depth: Down to and including healthy tissue and in the subcutaneous layer Percentage of wound debrided: 100 Instrument Used: 3mm curette Tissue Removed: Non viable tissue and slough Severity: Fat Layer Exposed Amount of bleeding with debridement: Mild Bleeding Controlled with: Compression and gauze Patient tolerated procedure: Patient tolerated procedure well Post-Debridement Measurements and Additional Note: Post-Debridement Measurements/Treatment - Nurse 1 - General Ulcer Assessment Start: 09/08/23 13:18 Freq: Status: Active Protocol: PALOMO Activity Type Activity Date Activity User E-sign Co-sign Detail Recorded Client Recorded Date Recorded By Document 09/08/23 13:19 [facility] 10.10.25.7 09/08/23 13:24 [facility] 09/08/23 13:19 - Today's Visit Information Type of service Follow-up Visit (Physician/MANAGER COSMETIC ) Arrival Mode Ambulatory Transfer Assistance None Patient Identification Verified (Name & Yes ) Patient Requires Transmission-Based No Precautions Finger Stick Blood Sugar(mg/dl) (if 121 indicated): Blood Sugar Stated by Patient Height and Weight Body Mass Index (BMI) 28.5 BMI Classification Overweight Vital Signs Temperature (97.8 F-99.1 F) 96.5 F L Temperature Source Temporal Pulse Rate (60-100) 70 Pulse Location Monitor Respiratory Rate (12-18) 16 Respiratory rate source Observation Oxygen Delivery Method Room Air Blood Pressure (90/60-120/80) 160/57 H Blood Pressure Mean (mm Hg) 91 Source Monitor Position Sitting Blood Pressure Location Left Arm History Since Last Visit- (Skip if this is Patient's initial visit) Have you changed medications since your No last visit? Any new allergies or adverse reactions No Had a fall/change in ADL's that may No increase risk of falls Signs or symptoms of abuse and/or No neglect since last visit Have you been in the hospital since your No last visit? Has dressing in place as prescribed Yes Has compression in place as prescribed N/A Has offloadiing in place as prescribed N/A Experienced any changes in pain level or No management Left Footwear Regular Shoe Right Footwear Regular Shoe Pain Scale: 0-10 Numeric Is Patient Pain Free? Yes WC - Nurse 1 - General Ulcer Measurement Start: 09/08/23 13:18 Freq: Status: Active Protocol: Activity Type Activity Date Activity User E-sign Co-sign Detail Recorded Client Recorded Date Recorded By Document 09/08/23 13:19 [facility] [id number] 09/08/23 13:24 BM 09/08/23 13:19 Wound Center Nurse 1 #5 RT BUTTOCK -Combined with other wound No -Current Size (cm) - Length 0.1 -Current Size (cm) - Width 0.1 -Current Size (cm) - Depth 0.1 -Total Square Cm 0.01 -Date of Last Picture (Recall this 09/08/23 field) -Photo Taken Yes -Epithelialization Large 67-100% -Tunneling No -Undermining/Tunneling No -Circular Undermining No -Texture (Karin-wound Skin Appearance) Assessed, Scarring -Moisture (Karin-wound Skin Appearance) Assessed,Dry/ Scaly -Color (Karin-wound Skin Appearance) Assessed -Temperature (Karin-wound Skin No Abnormality Appearance) (Pt Warm) -Tenderness on Palpation (Karin-wound No Skin Appearance) -Ulcer Cleansing Rinsed/ Irrigated with Saline -Foul Odor after Cleansing No -Anesthetic Used 5% Lidocaine Gel #4 LT BUTTOCK CLUSTER -Combined with other wound No -Current Size (cm) - Length 2.5 -Current Size (cm) - Width 1.7 -Current Size (cm) - Depth 0.1 -Total Square Cm 4.25 -Date of Last Picture (Recall this 09/08/23 field) -Photo Taken Yes -Epithelialization Small 1-33% -Tunneling No -Undermining/Tunneling No -Circular Undermining No -Exudate Amt Medium -Exudate Type Serosanguineous -Wound Margin Distinct, Outline Attached -Granulation Amt Large (67-100%) -Granulation Quality Red -Slough/Fibrin No -Necrosis Amt None Present (0 %) -Texture (Karin-wound Skin Appearance) Assessed, Scarring -Moisture (Karin-wound Skin Appearance) Assessed,Dry/ Scaly -Color (Karin-wound Skin Appearance) Assessed -Temperature (Karin-wound Skin No Abnormality Appearance) (Pt Warm) -Tenderness on Palpation (Karin-wound No Skin Appearance) -Ulcer Cleansing Rinsed/ Irrigated with Saline -Foul Odor after Cleansing No -Anesthetic Used 5% Lidocaine Gel WC - Nurse 2 - General Ulcer CM Notes Start: 09/08/23 13:18 Freq: Status: Active Protocol: Activity Type Activity Date Activity User E-sign Co-sign Detail Recorded Client Recorded Date Recorded By Document 09/08/23 13:32 JF 09/08/23 13:34 JF 09/08/23 13:32 Wound Center Nurse 2 #5 RT BUTTOCK -Correct Patient No -Correct Side, Site, Position No -Correct Procedure No -Procedure Performed No -Post Debridement (cm) - Length 0 -Post Debridement (cm) - Width 0 -Post Debridement (cm) - Depth 0 -Total Square (Post) (cm) 0 -Area of Debridement (cm) - Length 0 -Area of Debridement (cm) - Width 0 -Total Square (Area) (cm) 0 -Wound/Ulcer Outcome Healed- Epithelialized #4 LT BUTTOCK CLUSTER -Time 13:33 -Correct Patient Yes -Correct Side, Site, Position Yes -Correct Procedure Yes -Procedure Performed Yes -Type of Procedure Debridement -Clinical Debridement Subcutaneous -Tissue Removed Subcutaneous -Post Debridement (cm) - Length 2.0 -Post Debridement (cm) - Width 1.5 -Post Debridement (cm) - Depth 0.1 -Total Square (Post) (cm) 3.00 -Area of Debridement (cm) - Length 2.0 -Area of Debridement (cm) - Width 1.5 -Total Square (Area) (cm) 3.00 -Tunneling No -Undermining/Tunneling No -Circular Undermining No -Wound/Ulcer Outcome Not Healed -Ulcer Cleansing Rinsed/ Irrigated with Saline -Foul Odor after Cleansing No -Bioengineered Tissue No -Bleeding Controlled with Pressure -Treatment Response Procedure Tolerated Well -Offloading No -Debridement - Subq, 1st 20sq cm Yes Pain Scale: 0-10 Numeric Is Patient Pain Free? Yes JUAN C - Nurse 3 - General Ulcer D/C NN Start: 09/08/23 13:18 Freq: Status: Active Protocol: Activity Type Activity Date Activity User E-sign Co-sign Detail Recorded Client Recorded Date Recorded By Document 09/08/23 13:34 JF 09/08/23 13:35 JF 09/08/23 13:34 Wound Care Center Nurse 3 #4 LT BUTTOCK CLUSTER -Ulcer Cleansing Rinsed/ Irrigated with Saline -Foul Odor after Cleansing No -Primary Dressing Applied C Hydrogel ($), Mepilex Border -Mepilex Border 1 Pain Scale: 0-10 Numeric Is Patient Pain Free? Yes WC - Visit Discharge Discharge Condition Stable Ambulatory Status Ambulatory Transportation Private Auto Medication Reconcilliation completed & Yes provided to patient/care provider Clinical Summary of Care Provided Yes Assessment/Plan Assessment/Plan (1) Stage III pressure ulcer of right buttock: CODE(S): L89.313 - Pressure ulcer of right buttock, stage 3 (2) Stage III pressure ulcer of left buttock: CODE(S): L89.323 - Pressure ulcer of left buttock, stage 3 (3) Type 2 diabetes mellitus: CODE(S): E11.9 - Type 2 diabetes mellitus without complications QUALIFIERS: Diabetes mellitus extermination supervisor insulin use: without extermination supervisor use Diabetes mellitus complication status: with circulatory complication Diabetes mellitus complication detail: with other circulatory complications Qualified Code(s): E11.59 - Type 2 diabetes mellitus with other circulatory complications (4) Overactive bladder: CODE(S): N32.81 - Overactive bladder PLAN: Plan Patient evaluated at the wound healing center today. Right buttock ulcer is healed today. Wound care - Wash buttocks well daily with soap and water. Place Collagen Hydrogel covered with Morrison SAP/foam bordered dressing daily. Encouraged to off load as much as possible. Patient admits to sitting for long periods of time. She states that she had been using a gel cushion from a wheelchair but admits that it is over 20 years old. Most recently she has been using egg crate foam cushion. Counseled on frequent repositioning (every 15-20 minutes), off loading by standing or lying down. She wears disposable underwear which may contribute to the issues if they are wet or she is perspiring. Encouraged good hygiene. Discussed increasing protein intake and supplementation. Follow up 2 weeks. Instructed to call or come in sooner if she develops any questions or concerns.
[2023-09-08 13:54] LABS: Bedside Glucose 181 mg/dL (74-106)
--- NOTE | 2023-09-11 09:28 | WC ---
PHOTO 09/08/2023 BUTTOCK
[2023-09-24 13:45] VITALS: BP 167/39; PULSE 88; RESP 18; TEMP 36.1; BMI 28.5
--- NOTE | 2023-09-24 16:26 | PCM.WC.PN ---
History of Present Illness Date of Service: 09/24/23 Chief Complaint: Pressure injury to right buttock and left buttocks pressure sores from sitting in her recliner History of Wound: Patient is an 83-year-old female presenting to the wound center for treatment of pressure injury to her right buttock and left buttocks. She has been seen here in the past for the same issues. The patient states that they have been occurring on and off for years. She admits that she sits in her recliner for long periods of time. She sits on an egg crate cushion. She states that this most recent time she feels that they reoccurred because she has been wearing Depends disposable under wear. She initially was on Jardiance, but then was changed to Farxiga for her diabetes and it makes her have issues urinating. She was having issues making it to the bathroom. She also has a history of over active bladder. She states she just recently stopped the Farxiga. She went into her PCP and was referred to the wound healing center. She has been putting over the counter cream/ointments on her ulcers. She also has used left over gel from when she was last seen her. She does not have help at home to help with her ulcer care. She has a history of Type 2 DM (HgA1c 7.7 10/02/22), pacemaker, OAB, GERD, hiatal hernia, IBS, HTN. Today she denies any fever, chills, nausea, or vomiting. Progress of Wound: Her left buttocks is almost healed. Removed some dry, scabbing from around the left buttocks. The area is still mildly excoriated. The right side remains healed. She states she is trying her best to do the dressing changes. She states she has been really trying at off loading as much as possible. Objective Data Objective Data Vital Signs: Vital Signs Temp Pulse Resp BP O2 Del Method 97 F L 88 18 167/39 H Room Air 09/24/23 13:45 09/24/23 13:45 09/24/23 13:45 09/24/23 13:45 09/08/23 13:19 Oxygen Delivery Method Room Air Weight: 166 lb Body Mass Index (BMI) 28.5 Charges/Coding Visit Charges Office Visits / Consults: 83224 OV L3 Est 20min Physical Exam Const alert, oriented x3 and no apparent distress General Appearance: cooperative HEENT normocephalic Head and Scalp: atraumatic Eyes General Eye: normal appearance of both eyes Neck full ROM Lymph Lymphatic: no lymphedema noted Resp normal respiratory effort, normal air movement and clear to auscultation bilaterally Effort and Inspection: able to speak in complete sentences Cardio regular rate and regular rhythm GI normal to inspection, nondistended, normoactive bowel sounds, soft to palpation and non-tender Back/Spine normal ROM Extremity full ROM and normal capillary refill Skin Wound Narrative: Her left buttocks is almost healed. Removed some dry, scabbing from around the left buttocks. The area is still mildly excoriated. The right side remains healed. Neuro oriented x3 Psych mental status grossly normal and cooperative Psych Narrative: Very talkative. Debridement Note Debridement Note No debridement was completed: No debridement was completed today Post-Debridement Measurements and Additional Note: Post-Debridement Measurements/Treatment - Nurse 1 - General Ulcer Assessment Start: 09/08/23 13:18 Freq: Status: Active Protocol: PALOMO Activity Type Activity Date Activity User E-sign Co-sign Detail Recorded Client Recorded Date Recorded By Document 09/08/23 13:19 [facility] 10.10.25.7 09/08/23 13:24 [facility] Document 09/24/23 13:45 [id number] 09/24/23 13:51 [place] 09/08/23 09/24/23 13:19 13:45 - Today's Visit Information Type of service Follow-up Visit Follow-up Visit (Physician/MECHANICAL APPLICATIONS ENGINEER (Physician/MECHANICAL APPLICATIONS ENGINEER ) ) Arrival Mode Ambulatory Ambulatory Transfer Assistance None Accompanied by self Patient Identification Verified (Name & Yes Yes ) Patient Requires Transmission-Based No Precautions Safety Precautions Fall Prevention Finger Stick Blood Sugar(mg/dl) (if 121 indicated): Blood Sugar Stated by Patient Height and Weight Body Mass Index (BMI) 28.5 28.5 BMI Classification Overweight Overweight Vital Signs Temperature (97.8 F-99.1 F) 96.5 F L 97 F L Temperature Source Temporal Temporal Pulse Rate (60-100) 70 88 Pulse Location Monitor Monitor Respiratory Rate (12-18) 16 18 Respiratory rate source Observation Observation Oxygen Delivery Method Room Air Blood Pressure (90/60-120/80) 160/57 H 167/39 H Blood Pressure Mean (mm Hg) 91 81 Source Monitor Monitor Position Sitting Sitting Blood Pressure Location Left Arm Right Arm History Since Last Visit- (Skip if this is Patient's initial visit) Have you changed medications since your No last visit? Any new allergies or adverse reactions No Had a fall/change in ADL's that may No increase risk of falls Signs or symptoms of abuse and/or No neglect since last visit Have you been in the hospital since your No last visit? Has dressing in place as prescribed Yes Yes Has compression in place as prescribed N/A Yes Has offloadiing in place as prescribed N/A Yes Experienced any changes in pain level or No Yes management Left Footwear Regular Shoe Regular Shoe Right Footwear Regular Shoe Regular Shoe Pain Scale: 0-10 Numeric Is Patient Pain Free? Yes Yes WC - Nurse 1 - General Ulcer Measurement Start: 09/08/23 13:18 Freq: Status: Active Protocol: Activity Type Activity Date Activity User E-sign Co-sign Detail Recorded Client Recorded Date Recorded By Document 09/08/23 13:19 [facility] 10.10.25.7 09/08/23 13:24 BM Document 09/24/23 13:45 [facility] [id number] 09/24/23 13:51 [place] 09/08/23 09/24/23 13:19 13:45 Wound Center Nurse 1 #5 RT BUTTOCK -Combined with other wound No -Current Size (cm) - Length 0.1 -Current Size (cm) - Width 0.1 -Current Size (cm) - Depth 0.1 -Total Square Cm 0.01 -Date of Last Picture (Recall this 09/08/23 field) -Photo Taken Yes -Epithelialization Large 67-100% -Tunneling No -Undermining/Tunneling No -Circular Undermining No -Texture (Karin-wound Skin Appearance) Assessed, Scarring -Moisture (Karin-wound Skin Appearance) Assessed,Dry/ Scaly -Color (Karin-wound Skin Appearance) Assessed -Temperature (Karin-wound Skin No Abnormality Appearance) (Pt Warm) -Tenderness on Palpation (Karin-wound No Skin Appearance) -Ulcer Cleansing Rinsed/ Irrigated with Saline -Foul Odor after Cleansing No -Anesthetic Used 5% Lidocaine Gel #4 LT BUTTOCK CLUSTER -Combined with other wound No -Current Size (cm) - Length 2.5 0.1 -Current Size (cm) - Width 1.7 0.1 -Current Size (cm) - Depth 0.1 0.1 -Total Square Cm 4.25 0.01 -Date of Last Picture (Recall this 09/08/23 field) -Photo Taken Yes No -Epithelialization Small 1-33% -Tunneling No No -Undermining/Tunneling No No -Circular Undermining No No -Exudate Amt Medium None Present -Exudate Type Serosanguineous -Wound Margin Distinct, Flat & Intact Outline Attached -Granulation Amt Large (67-100%) Large (67-100%) -Granulation Quality Red Pale,[place] -Slough/Fibrin No -Necrosis Amt None Present (0 %) -Texture (Karin-wound Skin Appearance) Assessed, Assessed Scarring -Moisture (Karin-wound Skin Appearance) Assessed,Dry/ Assessed Scaly -Color (Karin-wound Skin Appearance) Assessed Assessed -Temperature (Karin-wound Skin No Abnormality No Abnormality Appearance) (Pt Warm) (Pt Warm) -Tenderness on Palpation (Karin-wound No No Skin Appearance) -Ulcer Cleansing Rinsed/ Soap and Water Irrigated with Saline -Foul Odor after Cleansing No No -Anesthetic Used 5% Lidocaine 5% Lidocaine Gel Gel Lower Limb Edema Present NA WC - Nurse 2 - General Ulcer CM Notes Start: 09/08/23 13:18 Freq: Status: Active Protocol: Activity Type Activity Date Activity User E-sign Co-sign Detail Recorded Client Recorded Date Recorded By Document 09/08/23 13:32 JF 00 09/08/23 13:34 Document 09/24/23 14:11 [facility] 10.10.25.7 09/24/23 14:12 [facility] 09/08/23 09/24/23 13:32 14:11 Wound Center Nurse 2 #5 RT BUTTOCK -Correct Patient No -Correct Side, Site, Position No -Correct Procedure No -Procedure Performed No -Post Debridement (cm) - Length 0 -Post Debridement (cm) - Width 0 -Post Debridement (cm) - Depth 0 -Total Square (Post) (cm) 0 -Area of Debridement (cm) - Length 0 -Area of Debridement (cm) - Width 0 -Total Square (Area) (cm) 0 -Wound/Ulcer Outcome Healed- Epithelialized #4 LT BUTTOCK CLUSTER -Time 13:33 -Correct Patient Yes -Correct Side, Site, Position Yes -Correct Procedure Yes -Procedure Performed Yes -Type of Procedure Debridement -Clinical Debridement Subcutaneous -Tissue Removed Subcutaneous -Post Debridement (cm) - Length 2.0 0.1 -Post Debridement (cm) - Width 1.5 0.1 -Post Debridement (cm) - Depth 0.1 0.1 -Total Square (Post) (cm) 3.00 0.01 -Area of Debridement (cm) - Length 2.0 0.1 -Area of Debridement (cm) - Width 1.5 0.1 -Total Square (Area) (cm) 3.00 0.01 -Tunneling No No -Undermining/Tunneling No No -Circular Undermining No No -Wound/Ulcer Outcome Not Healed Not Healed -Ulcer Cleansing Rinsed/ Irrigated with Saline -Foul Odor after Cleansing No -Bioengineered Tissue No -Bleeding Controlled with Pressure NA -Treatment Response Procedure Tolerated Well -Offloading No -Debridement - Subq, 1st 20sq cm Yes Pain Scale: 0-10 Numeric Is Patient Pain Free? Yes Yes - Nurse 3 - General Ulcer D/C NN Start: 09/08/23 13:18 Freq: Status: Active Protocol: Activity Type Activity Date Activity User E-sign Co-sign Detail Recorded Client Recorded Date Recorded By Document 09/08/23 13:34 [facility] 09/08/23 13:35 Document 09/24/23 14:16 [facility] 10.10.25.7 09/24/23 14:16 [facility] 09/08/23 09/24/23 13:34 14:16 Wound Care Center Nurse 3 #4 LT BUTTOCK CLUSTER -Ulcer Cleansing Rinsed/ Irrigated with Saline -Foul Odor after Cleansing No -Primary Dressing Applied C Hydrogel ($), Mepilex Border -Mepilex Border 1 -Wound Comment(s) CALMOSEPTINE OINT APPLIED TO BOTH BUTTOCKS PER S JANET AT RISK SPECIALIST Treatment Response Procedure Tolerated Well Pain Scale: 0-10 Numeric Is Patient Pain Free? Yes Yes - Visit Discharge Discharge Condition Stable Stable Ambulatory Status Ambulatory Ambulatory Transportation Private Auto Private Auto Medication Reconcilliation completed & Yes provided to patient/care provider Clinical Summary of Care Provided Yes Assessment/Plan Assessment/Plan (1) Stage III pressure ulcer of right buttock: CODE(S): L89.313 - Pressure ulcer of right buttock, stage 3 (2) Stage III pressure ulcer of left buttock: CODE(S): L89.323 - Pressure ulcer of left buttock, stage 3 (3) Type 2 diabetes mellitus: CODE(S): E11.9 - Type 2 diabetes mellitus without complications QUALIFIERS: Diabetes mellitus termite treater helper insulin use: without termite treater helper use Diabetes mellitus complication status: with circulatory complication Diabetes mellitus complication detail: with other circulatory complications Qualified Code(s): E11.59 - Type 2 diabetes mellitus with other circulatory complications (4) Overactive bladder: CODE(S): N32.81 - Overactive bladder PLAN: Plan Patient evaluated at the wound healing center today. Right buttock ulcer remains healed today. Wound care - Wash buttocks well daily with soap and water. Place Calmoseptine cream daily and as needed to both areas. Encouraged to off load as much as possible. Patient admits to sitting for long periods of time. She states that she had been using a gel cushion from a wheelchair but admits that it is over 20 years old. Most recently she has been using egg crate foam cushion. Counseled on frequent repositioning (every 15-20 minutes), off loading by standing or lying down. She wears disposable underwear which may contribute to the issues if they are wet or she is perspiring. Encouraged good hygiene. Discussed increasing protein intake and supplementation. Follow up 2 weeks. Instructed to call or come in sooner if she develops any questions or concerns.
== END 2023-10-01 23:59 | disposition home or self-care (01) ==
LOC: WC 13:45
PROVIDERS: PCP Family Medicine; Referring Provider Family Medicine; Visit Provider Nurse Practitioner Family
DX: L89.313 Pressure ulcer of right buttock, stage 3 (principal); L89.323 Pressure ulcer of left buttock, stage 3; E11.59 Type 2 diabetes mellitus with other circulatory complications; K21.9 Gastro-esophageal reflux disease without esophagitis; I10 Essential (primary) hypertension; Z95.0 Presence of cardiac pacemaker; K58.9 Irritable bowel syndrome, unspecified; Z79.899 Other long term (current) drug therapy; Z79.84 Long term (current) use of oral hypoglycemic drugs; N32.81 Overactive bladder
CPT/HCPCS: 11042; 82962; 99213; G0463

== ENCOUNTER → 2023-10-03 | Outpatient (CLI) | payer MEDICARE, OTHER, SELFPAY ==
[2023-10-03 16:33] LABS: ALB/GLOB Ratio 0.9 RATIO (0.9-2.4); AST(SGOT) 12 U/L (15-37); Alanine Aminotransfer ALT/SGPT 15 U/L (13-56); Albumin, Serum 3.4 g/dL (3.2-5.0); Alkaline Phosphatase 77 U/L (45-117); Anion Gap 5 (5-15); BUN 20 mg/dL (7-18); BUN/Creat Ratio 20.7 RATIO (10-20); Calcium,Total 9.3 mg/dL (8.5-10.1); Chloride 109 mmol/L (98-107); Cholesterol 171 mg/dL (200); Creatinine, Serum 0.97 mg/dL (0.55-1.02); EST Glomerular Filtration Rate 58 mL/min (>60); Est Glom Filt Rate - Afr Amer 70 mL/min (>60); Globulin 3.8 g/dL (2.2-4.2); Glucose 195 mg/dL (74-106); High Density Lipoprotein 43 mg/dL; Protein, Total 7.2 g/dL (6.4-8.2); Sodium Level 138 mmol/L (136-145); Triglycerides 194 mg/dL; Very Low Density Lipoprotein 39 mg/dL (5-40)
== END | disposition home or self-care (01) ==
LOC: MFPLAB 11:42
PROVIDERS: PCP Family Medicine; Visit Provider Family Medicine
DX: E11.69 Type 2 diabetes mellitus with other specified complication (principal); E66.9 Obesity, unspecified
CPT/HCPCS: 36415; 80053; 80061

== ENCOUNTER 2023-10-29 14:15 | Outpatient (RCR) | payer MEDICARE, OTHER, SELFPAY ==
[2023-10-02 00:50] VITALS: BP 153/57; PULSE 75; RESP 18; TEMP 35.8; BMI 28.5
[2023-10-08 15:32] VITALS: BP 177/61; PULSE 87; RESP 18; TEMP 36.1; BMI 28.5
--- NOTE | 2023-10-08 16:27 | PN.PCM_ITS ---
History of Present Illness Date of Service: 10/08/23 Chief Complaint: Pressure injury to right buttock and left buttocks pressure sores from sitting in her recliner History of Wound: Patient is an 83-year-old female presenting to the wound center for treatment of pressure injury to her right buttock and left buttocks. She has been seen here in the past for the same issues. The patient states that they have been occurring on and off for years. She admits that she sits in her recliner for long periods of time. She sits on an egg crate cushion. She states that this most recent time she feels that they reoccurred because she has been wearing Depends disposable under wear. She initially was on Jardiance, but then was changed to Farxiga for her diabetes and it makes her have issues urinating. She was having issues making it to the bathroom. She also has a history of over active bladder. She states she just recently stopped the Farxiga. She went into her PCP and was referred to the wound healing center. She has been putting over the counter cream/ointments on her ulcers. She also has used left over gel from when she was last seen her. She does not have help at home to help with her ulcer care. She has a history of Type 2 DM (HgA1c 7.7 10/02/22), pacemaker, OAB, GERD, hiatal hernia, IBS, HTN. Today she denies any fever, chills, nausea, or vomiting. Progress of Wound: Her left buttocks is almost healed. Removed some dry, scabbing from around the left buttocks and there are several small areas that are not completely covered with epithelial tissue. The right side remains healed. She admits to not off loading like she should because she has been watching a lot of television since the Olympics are on. Objective Data Objective Data Vital Signs: Vital Signs Temp Pulse Resp BP O2 Del Method 96.9 F L 87 18 177/61 H Room Air 10/08/23 15:32 10/08/23 15:32 10/08/23 15:32 10/08/23 15:32 10/08/23 15:32 Oxygen Delivery Method Room Air Weight: 166 lb Body Mass Index (BMI) 28.5 Charges/Coding Wound Center CF Procedures [id number]: 73931 RMVL DEVITAL TIS 20 CM/< Multi Select Codes Wound Center CF Procedures [id number]: 90098 RMVL DEVITAL TIS 20 CM/< Debridement Note Debridement Note Wound debrided: buttocks cluster Laterality: Left Wound Grade/Stage: stageII Type of Debridement: Selective debridement Anesthesia Used: 5% Lidocaine Gel Depth: Down to and including healthy tissue Percentage of wound debrided: 100 Instrument Used: - (moistened gauze to help remove the scabbing) Tissue Removed: Non viable tissue and slough Severity: Limited To Skin Breakdown Amount of bleeding with debridement: None Bleeding Controlled with: Compression and gauze Patient tolerated procedure: Patient tolerated procedure well Post-Debridement Measurements and Additional Note: Post-Debridement Measurements/Treatment WC - Nurse 1 - General Ulcer Assessment Start: 10/08/23 15:32 Freq: Status: Active Protocol: PALOMO Activity Type Activity Date Activity User E-sign Co-sign Detail Recorded Client Recorded Date Recorded By Document 10/08/23 15:32 DS 1 10/08/23 15:33 DS 10/08/23 15:32 WC - Today's Visit Information Type of service Follow-up Visit (Physician/SURVEILLANCE TECHNICIAN ) Arrival Mode Ambulatory Height and Weight Body Mass Index (BMI) 28.5 BMI Classification Overweight Vital Signs Temperature (97.8 F-99.1 F) 96.9 F L Temperature Source Temporal Pulse Rate (60-100) 87 Pulse Location Monitor Respiratory Rate (12-18) 18 Respiratory rate source Observation Oxygen Delivery Method Room Air Blood Pressure (90/60-120/80) 177/61 H Blood Pressure Mean (mm Hg) 99 Source Monitor Position Sitting Blood Pressure Location Right Arm History Since Last Visit- (Skip if this is Patient's initial visit) Have you changed medications since your No last visit? Any new allergies or adverse reactions No Had a fall/change in ADL's that may No increase risk of falls Signs or symptoms of abuse and/or No neglect since last visit Have you been in the hospital since your No last visit? Has dressing in place as prescribed Yes Has compression in place as prescribed N/A Has offloadiing in place as prescribed Yes Experienced any changes in pain level or No management Left Footwear Regular Shoe Right Footwear Regular Shoe Pain Scale: 0-10 Numeric Is Patient Pain Free? Yes - Nurse 1 - General Ulcer Measurement Start: 10/08/23 15:32 Freq: Status: Active Protocol: Activity Type Activity Date Activity User E-sign Co-sign Detail Recorded Client Recorded Date Recorded By Document 10/08/23 15:33 DS 1 10/08/23 15:40 DS 10/08/23 15:33 Wound Center Nurse 1 #4 LT BUTTOCK -Current Size (cm) - Length 0.1 -Current Size (cm) - Width 0.1 -Current Size (cm) - Depth 0.1 -Total Square Cm 0.01 -Wound Margin Distinct, Outline Attached -Texture (Karin-wound Skin Appearance) Assessed -Moisture (Karin-wound Skin Appearance) Assessed -Color (Karin-wound Skin Appearance) Assessed -Temperature (Karin-wound Skin No Abnormality Appearance) (Pt Warm) -Tenderness on Palpation (Karin-wound No Skin Appearance) -Ulcer Cleansing Soap and Water -Anesthetic Used 5% Lidocaine Gel WC - Nurse 2 - General Ulcer CM Notes Start: 10/08/23 15:32 Freq: Status: Active Protocol: Activity Type Activity Date Activity User E-sign Co-sign Detail Recorded Client Recorded Date Recorded By Document 10/08/23 16:03 GM 10/08/23 16:05 GM Edit Result 10/08/23 16:03 GM (1) 10/08/23 16:06 GM (1) #4 LT BUTTOCK - Correct Procedure => Yes - Procedure Performed => Yes - Type of Procedure => Debridement - Clinical Debridement => Epidermis / Dermis - Tissue Removed => Epidermis - Tunneling => No - Undermining/Tunneling => No - Circular Undermining => No - Wound/Ulcer Outcome => Not Healed - Bleeding Controlled with => NA - Debridement - Open, 1st 20sq cm => Yes 10/08/23 16:03 Wound Center Nurse 2 -Time 16:03 -Correct Patient Yes -Correct Side, Site, Position Yes -Correct Procedure Yes -Procedure Performed Yes -Type of Procedure Debridement -Clinical Debridement Epidermis / Dermis -Tissue Removed Epidermis -Tunneling No -Undermining/Tunneling No -Circular Undermining No -Wound/Ulcer Outcome Not Healed -Bleeding Controlled with NA -Debridement - Open, 1st 20sq cm Yes -Wound Comment(s) measurements 1. 0 x 0.5 x 0.1 Pain Scale: 0-10 Numeric Is Patient Pain Free? Yes - Nurse 3 - General Ulcer D/C NN Start: 10/08/23 15:32 Freq: Status: Active Protocol: Activity Type Activity Date Activity User E-sign Co-sign Detail Recorded Client Recorded Date Recorded By Document 10/08/23 16:07 [facility] 10/08/23 16:08 10/08/23 16:07 Wound Care Center Nurse 3 #4 LT BUTTOCK -Wound Comment(s) calmoseptine sample applied Pain Scale: 0-10 Numeric Is Patient Pain Free? Yes WC - Visit Discharge Discharge Condition Stable Ambulatory Status Ambulatory Transportation Private Auto Clinical Summary of Care Provided Yes Assessment/Plan Assessment/Plan (1) Stage III pressure ulcer of right buttock: CODE(S): L89.313 - Pressure ulcer of right buttock, stage 3 (2) Stage III pressure ulcer of left buttock: CODE(S): L89.323 - Pressure ulcer of left buttock, stage 3 (3) Type 2 diabetes mellitus: CODE(S): E11.9 - Type 2 diabetes mellitus without complications QUALIFIERS: Diabetes mellitus terminal gauger supervisor insulin use: without skilled nursing use Diabetes mellitus complication status: with circulatory complication Diabetes mellitus complication detail: with other circulatory complications Qualified Code(s): E11.59 - Type 2 diabetes mellitus with other circulatory complications (4) Overactive bladder: CODE(S): N32.81 - Overactive bladder PLAN: Plan Patient evaluated at the wound healing center today. Right buttock ulcer remains healed today. Wound care - Wash buttocks well daily with soap and water. Place Calmoseptine cream daily and as needed to both areas. Encouraged to off load as much as possible. Patient admits to sitting for long periods of time. She states that she had been using a gel cushion from a wheelchair but admits that it is over 20 years old. Most recently she has been using egg crate foam cushion. Counseled on frequent repositioning (every 15-20 minutes), off loading by standing or lying down. Suggested that she get up during commercial breaks to help off load and remind her to move. She verbalized understanding. She wears disposable underwear which may contribute to the issues if they are wet or she is perspiring. Encouraged good hygiene. Discussed increasing protein intake and supplementation. Follow up 2 weeks. Instructed to call or come in sooner if she develops any questions or concerns.
[2023-10-22 14:31] VITALS: BP 160/68; PULSE 81; RESP 18; TEMP 36.2; BMI 28.5
--- NOTE | 2023-10-22 16:39 | PCM.WC.PN ---
History of Present Illness Date of Service: 10/22/23 Chief Complaint: Pressure injury to right buttock and left buttocks pressure sores from sitting in her recliner History of Wound: Patient is an 83-year-old female presenting to the wound center for treatment of pressure injury to her right buttock and left buttocks. She has been seen here in the past for the same issues. The patient states that they have been occurring on and off for years. She admits that she sits in her recliner for long periods of time. She sits on an egg crate cushion. She states that this most recent time she feels that they reoccurred because she has been wearing Depends disposable under wear. She initially was on Jardiance, but then was changed to Farxiga for her diabetes and it makes her have issues urinating. She was having issues making it to the bathroom. She also has a history of over active bladder. She states she just recently stopped the Farxiga. She went into her PCP and was referred to the wound healing center. She has been putting over the counter cream/ointments on her ulcers. She also has used left over gel from when she was last seen her. She does not have help at home to help with her ulcer care. She has a history of Type 2 DM (HgA1c 7.7 10/02/22), pacemaker, OAB, GERD, hiatal hernia, IBS, HTN. Today she denies any fever, chills, nausea, or vomiting. Progress of Wound: Her left buttocks ulcer reopened, it is pink and superficial. The right buttocks is healed although there is some dry present. She states that she has been trying to move more but the majority of the activities that she enjoys requires sitting. She states that she has been trying to walk up and down her steps to gain strength but it is difficult. I discussed concern about her potentially falling if she is having difficulty with steps. She also started to do exercises that she found on line but has found them to be difficult. She typically lives on the main floor and has not been using steps. She does admit to not off loading as she should. She would benefit from being evaluated for PT for strengthening and ROM. Objective Data Objective Data Vital Signs: Vital Signs Temp Pulse Resp BP O2 Del Method 97.2 F L 81 18 160/68 H Room Air 10/22/23 14:31 08/21/24 14:31 10/22/23 14:31 10/22/23 14:31 10/08/23 15:32 Oxygen Delivery Method Room Air Weight: 166 lb Body Mass Index (BMI) 28.5 Charges/Coding Procedures Integumentary 111xxx-113xx: [id number] Dilia subq tissue 20 sq cm/< Debridement Note Debridement Note Wound debrided: buttocks ulcer Laterality: Left Wound Grade/Stage: stageII Type of Debridement: Excisional debridement Anesthesia Used: 5% Lidocaine Gel Depth: Down to and including healthy tissue Percentage of wound debrided: 100 Instrument Used: 3mm curette and - Tissue Removed: Non viable tissue and slough Severity: Fat Layer Exposed Amount of bleeding with debridement: Mild Bleeding Controlled with: Pressure and Compression and gauze Patient tolerated procedure: Patient tolerated procedure well Post-Debridement Measurements and Additional Note: Post-Debridement Measurements/Treatment - Nurse 1 - General Ulcer Assessment Start: 10/08/23 15:32 Freq: Status: Active Protocol: PALOMO Activity Type Activity Date Activity User E-sign Co-sign Detail Recorded Client Recorded Date Recorded By Document 10/08/23 15:32 DS 1 10/08/23 15:33 DS Document 10/22/23 14:31 DL [id number] 10/22/23 14:37 DL 10/08/23 10/22/23 15:32 14:31 - Today's Visit Information Type of service Follow-up Visit Follow-up Visit (Physician/DRAFTER TOOL DESIGN (Physician/DRAFTER TOOL DESIGN ) ) Arrival Mode Ambulatory Ambulatory Transfer Assistance None Patient Identification Verified (Name & Yes ) Patient Requires Transmission-Based No Precautions Height and Weight Body Mass Index (BMI) 28.5 28.5 BMI Classification Overweight Overweight Vital Signs Temperature (97.8 F-99.1 F) 96.9 F L 97.2 F L Temperature Source Temporal Temporal Pulse Rate (60-100) 87 81 Pulse Location Monitor Monitor Respiratory Rate (12-18) 18 18 Respiratory rate source Observation Observation Oxygen Delivery Method Room Air Blood Pressure (90/60-120/80) 177/61 H 160/68 H Blood Pressure Mean (mm Hg) 99 98 Source Monitor Monitor Position Sitting Blood Pressure Location Right Arm History Since Last Visit- (Skip if this is Patient's initial visit) Have you changed medications since your No No last visit? Any new allergies or adverse reactions No No Had a fall/change in ADL's that may No No increase risk of falls Signs or symptoms of abuse and/or No No neglect since last visit Have you been in the hospital since your No No last visit? Has dressing in place as prescribed Yes Yes Has compression in place as prescribed N/A N/A Has offloadiing in place as prescribed Yes Yes Experienced any changes in pain level or No No management Left Footwear Regular Shoe Right Footwear Regular Shoe Pain Scale: 0-10 Numeric Is Patient Pain Free? Yes Yes JUAN C - Nurse 1 - General Ulcer Measurement Start: 10/08/23 15:32 Freq: Status: Active Protocol: Activity Type Activity Date Activity User E-sign Co-sign Detail Recorded Client Recorded Date Recorded By Document 10/08/23 15:33 DS 1 10/08/23 15:40 DS Document 10/22/23 14:31 DL [id number] 10/22/23 14:37 DL 10/08/23 10/22/23 15:33 14:31 Wound Center Nurse 1 #4 LT BUTTOCK -Current Size (cm) - Length 0.1 0.1 -Current Size (cm) - Width 0.1 0.1 -Current Size (cm) - Depth 0.1 0.1 -Total Square Cm 0.01 0.01 -Exudate Amt None Present -Wound Margin Distinct, Distinct, Outline Outline Attached Attached -Granulation Amt Small (1-33%) -Granulation Quality [place] -Necrosis Amt None Present (0 %) -Structure Exposed N/A -Texture (Karin-wound Skin Appearance) Assessed Scarring -Moisture (Karin-wound Skin Appearance) Assessed Dry/Scaly -Color (Karin-wound Skin Appearance) Assessed No Abnormality -Temperature (Karin-wound Skin No Abnormality No Abnormality Appearance) (Pt Warm) (Pt Warm) -Tenderness on Palpation (Karin-wound No No Skin Appearance) -Ulcer Cleansing Soap and Water Rinsed/ Irrigated with Saline -Foul Odor after Cleansing No -Anesthetic Used 5% Lidocaine 5% Lidocaine Gel Gel JUAN C - Nurse 2 - General Ulcer CM Notes Start: 10/08/23 15:32 Freq: Status: Active Protocol: Activity Type Activity Date Activity User E-sign Co-sign Detail Recorded Client Recorded Date Recorded By Document 10/08/23 16:03 GM 10/08/23 16:05 GM Edit Result 10/08/23 16:03 GM (1) 10/08/23 16:06 GM Document 10/22/23 14:42 GM [id number] 10/22/23 14:44 GM (1) #4 LT BUTTOCK - Correct Procedure => Yes - Procedure Performed => Yes - Type of Procedure => Debridement - Clinical Debridement => Epidermis / Dermis - Tissue Removed => Epidermis - Tunneling => No - Undermining/Tunneling => No - Circular Undermining => No - Wound/Ulcer Outcome => Not Healed - Bleeding Controlled with => NA - Debridement - Open, 1st 20sq cm => Yes 10/08/23 10/22/23 16:03 14:42 Wound Center Nurse 2 #5 RT BUTTOCK -Time 14:42 -Correct Patient Yes -Correct Side, Site, Position Yes -Correct Procedure Yes -Procedure Performed Yes -Type of Procedure Debridement -Clinical Debridement Subcutaneous -Tissue Removed Subcutaneous -Post Debridement (cm) - Length 0.7 -Post Debridement (cm) - Width 0.5 -Post Debridement (cm) - Depth 0.1 -Total Square (Post) (cm) 0.35 -Area of Debridement (cm) - Length 0.7 -Area of Debridement (cm) - Width 0.5 -Total Square (Area) (cm) 0.35 -Tunneling No -Undermining/Tunneling No -Circular Undermining No -Wound/Ulcer Outcome Not Healed -Foul Odor after Cleansing No -Bleeding Controlled with Pressure -Treatment Response Procedure Tolerated Well -Offloading No -Pressure Reduction Wheelchair cushion -Debridement - Subq, 1st 20sq cm Yes #4 LT BUTTOCK -Time 16:03 14:42 -Correct Patient Yes Yes -Correct Side, Site, Position Yes Yes -Correct Procedure Yes -Procedure Performed Yes -Type of Procedure Debridement -Clinical Debridement Epidermis / Dermis -Tissue Removed Epidermis -Tunneling No -Undermining/Tunneling No -Circular Undermining No -Wound/Ulcer Outcome Not Healed Healed- Epithelialized -Bleeding Controlled with NA -Debridement - Open, 1st 20sq cm Yes -Wound Comment(s) measurements 1. 0 x 0.5 x 0.1 Pain Scale: 0-10 Numeric Is Patient Pain Free? Yes Yes - Nurse 3 - General Ulcer D/C NN Start: 10/08/23 15:32 Freq: Status: Active Protocol: Activity Type Activity Date Activity User E-sign Co-sign Detail Recorded Client Recorded Date Recorded By Document 10/08/23 16:07 [facility] 10/08/23 16:08 Document 10/22/23 14:58 DL [id number] 10/22/23 15:02 DL 10/08/23 10/22/23 16:07 14:58 Wound Care Center Nurse 3 #5 RT BUTTOCK -Ulcer Cleansing Rinsed/ Irrigated with Saline -Foul Odor after Cleansing No -Other Dressing hydrogel -Primary Dressing Covered/Secured with Dry Gauze, Secured with Tape #4 LT BUTTOCK -Ulcer Cleansing Rinsed/ Irrigated with Saline -Foul Odor after Cleansing No -Other Dressing hydrogel -Primary Dressing Covered/Secured with Dry Gauze, Secured with Tape -Wound Comment(s) calmoseptine sample applied Treatment Response Procedure Tolerated Well Pain Scale: 0-10 Numeric Is Patient Pain Free? Yes Yes WC - Visit Discharge Discharge Condition Stable Stable Ambulatory Status Ambulatory Ambulatory Transportation Private Auto Private Auto Clinical Summary of Care Provided Yes Assessment/Plan Assessment/Plan (1) Stage III pressure ulcer of right buttock: CODE(S): L89.313 - Pressure ulcer of right buttock, stage 3 (2) Stage III pressure ulcer of left buttock: CODE(S): L89.323 - Pressure ulcer of left buttock, stage 3 (3) Type 2 diabetes mellitus: CODE(S): E11.9 - Type 2 diabetes mellitus without complications QUALIFIERS: Diabetes mellitus alf insulin use: without terminal makeup operator use Diabetes mellitus complication status: with circulatory complication Diabetes mellitus complication detail: with other circulatory complications Qualified Code(s): E11.59 - Type 2 diabetes mellitus with other circulatory complications (4) Overactive bladder: CODE(S): N32.81 - Overactive bladder (5) Complaint of debility and malaise: CODE(S): R53.81 - Other malaise PLAN: Plan Patient evaluated at the wound healing center today. Right buttock ulcer remains healed today. The skin is dry on the left ulcer and the healed right ulcer. The zinc in the Calmaceptine may be drying her out too much. Wound care - Wash buttocks well daily with soap and water. Change to A&D ointment 1-2 x per day and as needed to both areas. Encouraged to off load as much as possible. Patient admits to sitting for long periods of time. She states that she had been using an egg crate foam cushion. Stressed concern that the egg crate is not thick enough and if she is using a cushion, she may need a ROHO cushion. Counseled on frequent repositioning (every 15-20 minutes), off loading by standing or lying down. Suggested lying down to watch television instead of sitting. Suggested that she get up during commercial breaks to help off load and remind her to move. She verbalized understanding. She wears disposable underwear which may contribute to the issues if they are wet or she is perspiring. Encouraged good hygiene. Discussed increasing protein intake and supplementation. Ordered PT for evaluation and treatment for strengthening and ROM. She would like to go to [facility] for this because it is closer to her home. Follow up 1 week. Instructed to call or come in sooner if she develops any questions or concerns.
[2023-10-29 14:19] VITALS: BP 143/62; PULSE 95; RESP 18; TEMP 36.4; BMI 28.5
--- NOTE | 2023-10-29 16:17 | PN.PCM_ITS ---
History of Present Illness Date of Service: 10/29/23 Chief Complaint: Pressure injury to right buttock and left buttocks pressure sores from sitting in her recliner History of Wound: Patient is an 83-year-old female presenting to the wound center for treatment of pressure injury to her right buttock and left buttocks. She has been seen here in the past for the same issues. The patient states that they have been occurring on and off for years. She admits that she sits in her recliner for long periods of time. She sits on an egg crate cushion. She states that this most recent time she feels that they reoccurred because she has been wearing Depends disposable under wear. She initially was on Jardiance, but then was changed to Farxiga for her diabetes and it makes her have issues urinating. She was having issues making it to the bathroom. She also has a history of over active bladder. She states she just recently stopped the Farxiga. She went into her PCP and was referred to the wound healing center. She has been putting over the counter cream/ointments on her ulcers. She also has used left over gel from when she was last seen her. She does not have help at home to help with her ulcer care. She has a history of Type 2 DM (HgA1c 7.7 10/02/22), pacemaker, OAB, GERD, hiatal hernia, IBS, HTN. Today she denies any fever, chills, nausea, or vomiting. Progress of Wound: Her left buttocks ulcer has healed again today. The right buttocks ulcer is larger this week, it was almost healed last week. The base of the ulcer is beefy pink. She does admit to not off loading as she should. She was ordered physical therapy last week, but has not heard from [facility] to schedule that. She lives close to [place] so she would like to have her physical therapy there. Objective Data Objective Data Vital Signs: Vital Signs Temp Pulse Resp BP O2 Del Method 97.6 F L 95 18 143/62 H Room Air 10/29/23 14:19 10/29/23 14:19 10/29/23 14:19 10/29/23 14:19 10/08/23 15:32 Oxygen Delivery Method Room Air Weight: 166 lb Body Mass Index (BMI) 28.5 Charges/Coding Procedures Integumentary [id number]: [id number] Dilia subq tissue 20 sq cm/< Debridement Note Debridement Note Wound debrided: buttocks ulcer Laterality: Right Wound Grade/Stage: stage III Type of Debridement: Excisional debridement Anesthesia Used: 5% Lidocaine Gel Depth: Down to and including healthy tissue Percentage of wound debrided: 100 Instrument Used: 3mm curette and - Tissue Removed: Non viable tissue and slough Severity: Fat Layer Exposed Amount of bleeding with debridement: Mild Bleeding Controlled with: Pressure and Compression and gauze Patient tolerated procedure: Patient tolerated procedure well Post-Debridement Measurements and Additional Note: Post-Debridement Measurements/Treatment - Nurse 1 - General Ulcer Assessment Start: 10/08/23 15:32 Freq: Status: Active Protocol: PALOMO Activity Type Activity Date Activity User E-sign Co-sign Detail Recorded Client Recorded Date Recorded By Document 10/08/23 15:32 DS 1 10/08/23 15:33 DS Document 10/22/23 14:31 DL [id number] 10/22/23 14:37 DL Document 10/29/23 14:19 DL [id number] 10/29/23 14:27 DL 10/08/23 10/22/23 10/29/23 15:32 14:31 14:19 - Today's Visit Information Type of service Follow-up Visit Follow-up Visit Follow-up Visit (Physician/RECRUITING ASSOCIATE (Physician/RECRUITING ASSOCIATE (Physician/RECRUITING ASSOCIATE ) ) ) Arrival Mode Ambulatory Ambulatory Ambulatory Transfer Assistance None None Patient Identification Verified (Name & Yes Yes ) Patient Requires Transmission-Based No No Precautions Height and Weight Body Mass Index (BMI) 28.5 28.5 28.5 BMI Classification Overweight Overweight Overweight Vital Signs Temperature (97.8 F-99.1 F) 96.9 F L 97.2 F L 97.6 F L Temperature Source Temporal Temporal Temporal Pulse Rate (60-100) 87 81 95 Pulse Location Monitor Monitor Monitor Respiratory Rate (12-18) 18 18 18 Respiratory rate source Observation Observation Observation Oxygen Delivery Method Room Air Blood Pressure (90/60-120/80) 177/61 H 160/68 H 143/62 H Blood Pressure Mean (mm Hg) 99 98 89 Source Monitor Monitor Monitor Position Sitting Blood Pressure Location Right Arm History Since Last Visit- (Skip if this is Patient's initial visit) Have you changed medications since your No No No last visit? Any new allergies or adverse reactions No No No Had a fall/change in ADL's that may No No No increase risk of falls Signs or symptoms of abuse and/or No No No neglect since last visit Have you been in the hospital since your No No No last visit? Has dressing in place as prescribed Yes Yes Yes Has compression in place as prescribed N/A N/A N/A Has offloadiing in place as prescribed Yes Yes Yes Experienced any changes in pain level or No No No management Left Footwear Regular Shoe Right Footwear Regular Shoe Pain Scale: 0-10 Numeric Is Patient Pain Free? Yes Yes Yes WC - Nurse 1 - General Ulcer Measurement Start: 10/08/23 15:32 Freq: Status: Active Protocol: Activity Type Activity Date Activity User E-sign Co-sign Detail Recorded Client Recorded Date Recorded By Document 10/08/23 15:33 DS 1 10/08/23 15:40 DS Document 10/22/23 14:31 DL [id number] 10/22/23 14:37 DL Document 10/29/23 14:19 DL [id number] 10/29/23 14:27 DL 10/08/23 10/22/23 10/29/23 15:33 14:31 14:19 Wound Center Nurse 1 #4 LT BUTTOCK -Current Size (cm) - Length 0.1 0.1 0 -Current Size (cm) - Width 0.1 0.1 0 -Current Size (cm) - Depth 0.1 0.1 0 -Total Square Cm 0.01 0.01 0 -Photo Taken Yes -Exudate Amt None Present None Present -Wound Margin Distinct, Distinct, Flat & Intact Outline Outline Attached Attached -Granulation Amt Small (1-33%) Large (67-100%) -Granulation Quality [place] -Necrosis Amt None Present (0 None Present (0 %) %) -Structure Exposed N/A N/A -Texture (Karin-wound Skin Appearance) Assessed Scarring Scarring -Moisture (Karin-wound Skin Appearance) Assessed Dry/Scaly No Abnormality -Color (Karin-wound Skin Appearance) Assessed No Abnormality No Abnormality -Temperature (Karin-wound Skin No Abnormality No Abnormality No Abnormality Appearance) (Pt Warm) (Pt Warm) (Pt Warm) -Tenderness on Palpation (Karin-wound No No Yes Skin Appearance) -Ulcer Cleansing Soap and Water Rinsed/ Soap and Water Irrigated with Saline -Foul Odor after Cleansing No No -Anesthetic Used 5% Lidocaine 5% Lidocaine Gel Gel #5 RT BUTTOCK -Current Size (cm) - Length 0.5 -Current Size (cm) - Width 0.4 -Current Size (cm) - Depth 0.1 -Total Square Cm 0.20 -Photo Taken Yes -Exudate Amt None Present -Wound Margin Distinct, Outline Attached -Granulation Amt Small (1-33%) -Granulation Quality [place] -Necrosis Amt None Present (0 %) -Structure Exposed N/A -Texture (Karin-wound Skin Appearance) Scarring -Moisture (Karin-wound Skin Appearance) No Abnormality -Color (Karin-wound Skin Appearance) No Abnormality -Temperature (Karin-wound Skin No Abnormality Appearance) (Pt Warm) -Ulcer Cleansing Rinsed/ Irrigated with Saline -Foul Odor after Cleansing No -Anesthetic Used 5% Lidocaine Gel WC - Nurse 2 - General Ulcer CM Notes Start: 10/08/23 15:32 Freq: Status: Active Protocol: Activity Type Activity Date Activity User E-sign Co-sign Detail Recorded Client Recorded Date Recorded By Document 10/08/23 16:03 GM 10/08/23 16:05 GM Edit Result 10/08/23 16:03 GM (1) 10/08/23 16:06 GM Document 10/22/23 14:42 GM [id number] 10/22/23 14:44 GM Document 10/29/23 14:40 DL [id number] 10/29/23 14:44 DL (1) #4 LT BUTTOCK - Correct Procedure => Yes - Procedure Performed => Yes - Type of Procedure => Debridement - Clinical Debridement => Epidermis / Dermis - Tissue Removed => Epidermis - Tunneling => No - Undermining/Tunneling => No - Circular Undermining => No - Wound/Ulcer Outcome => Not Healed - Bleeding Controlled with => NA - Debridement - Open, 1st 20sq cm => Yes 10/08/23 10/22/23 10/29/23 16:03 14:42 14:40 Wound Center Nurse 2 #4 LT BUTTOCK -Time 16:03 14:42 -Correct Patient Yes Yes -Correct Side, Site, Position Yes Yes -Correct Procedure Yes -Procedure Performed Yes -Type of Procedure Debridement -Clinical Debridement Epidermis / Dermis -Tissue Removed Epidermis -Tunneling No -Undermining/Tunneling No -Circular Undermining No -Wound/Ulcer Outcome Not Healed Healed- Epithelialized -Bleeding Controlled with NA -Debridement - Open, 1st 20sq cm Yes -Wound Comment(s) measurements 1. 0 x 0.5 x 0.1 #5 RT BUTTOCK -Time 14:42 14:41 -Correct Patient Yes Yes -Correct Side, Site, Position Yes Yes -Correct Procedure Yes Yes -Procedure Performed Yes Yes -Type of Procedure Debridement Debridement -Clinical Debridement Subcutaneous Subcutaneous -Tissue Removed Subcutaneous Subcutaneous -Post Debridement (cm) - Length 0.7 0.7 -Post Debridement (cm) - Width 0.5 0.5 -Post Debridement (cm) - Depth 0.1 0.1 -Total Square (Post) (cm) 0.35 0.35 -Area of Debridement (cm) - Length 0.7 0.7 -Area of Debridement (cm) - Width 0.5 0.5 -Total Square (Area) (cm) 0.35 0.35 -Tunneling No No -Undermining/Tunneling No No -Circular Undermining No No -Wound/Ulcer Outcome Not Healed Not Healed -Ulcer Cleansing Rinsed/ Irrigated with Saline -Foul Odor after Cleansing No No -Bleeding Controlled with Pressure Pressure -Treatment Response Procedure Procedure Tolerated Well Tolerated Well -Offloading No -Pressure Reduction Wheelchair cushion -Debridement - Subq, 1st 20sq cm Yes Yes Pain Scale: 0-10 Numeric Is Patient Pain Free? Yes Yes Yes - Nurse 3 - General Ulcer D/C NN Start: 10/08/23 15:32 Freq: Status: Active Protocol: Activity Type Activity Date Activity User E-sign Co-sign Detail Recorded Client Recorded Date Recorded By Document 10/08/23 16:07 [facility] 10/08/23 16:08 Document 10/22/23 14:58 DL [id number] 10/22/23 15:02 DL Document 10/29/23 14:54 RB [id number] 10/29/23 14:56 RB 10/08/23 10/22/23 10/29/23 16:07 14:58 14:54 Wound Care Center Nurse 3 #4 LT BUTTOCK -Ulcer Cleansing Rinsed/ Irrigated with Saline -Foul Odor after Cleansing No -Other Dressing hydrogel -Primary Dressing Covered/Secured with Dry Gauze, Secured with Tape -Wound Comment(s) calmoseptine sample applied #5 RT BUTTOCK -Ulcer Cleansing Rinsed/ Rinsed/ Irrigated with Irrigated with Saline Saline -Foul Odor after Cleansing No -Other Dressing hydrogel bacitracin -Primary Dressing Covered/Secured with Dry Gauze, Dry Gauze, Secured with Secured with Tape Tape Treatment Response Procedure Procedure Tolerated Well Tolerated Well Pain Scale: 0-10 Numeric Is Patient Pain Free? Yes Yes Yes WC - Visit Discharge Discharge Condition Stable Stable Stable Ambulatory Status Ambulatory Ambulatory Ambulatory Transportation Private Auto Private Auto Private Auto Medication Reconcilliation completed & No provided to patient/care provider Clinical Summary of Care Provided Yes Yes Assessment/Plan Assessment/Plan (1) Stage III pressure ulcer of right buttock: CODE(S): L89.313 - Pressure ulcer of right buttock, stage 3 (2) Stage III pressure ulcer of left buttock: CODE(S): L89.323 - Pressure ulcer of left buttock, stage 3 (3) Type 2 diabetes mellitus: CODE(S): E11.9 - Type 2 diabetes mellitus without complications QUALIFIERS: Diabetes mellitus keno terminal operator insulin use: without keno terminal operator use Diabetes mellitus complication status: with circulatory complication Diabetes mellitus complication detail: with other circulatory complications Qualified Code(s): E11.59 - Type 2 diabetes mellitus with other circulatory c omplications (4) Overactive bladder: CODE(S): N32.81 - Overactive bladder (5) Complaint of debility and malaise: CODE(S): R53.81 - Other malaise PLAN: Plan Patient evaluated at the wound healing center today. Right buttock ulcer has reopened. The left buttock ulcer remains healed. Wound care - Wash buttocks well daily with soap and water. Place A&D ointment 1-2 x per day and as needed to both areas. Encouraged to off load as much as possible. Patient admits to sitting for long periods of time. She states that she had been using an egg crate foam cushion. Stressed concern that the egg crate is not thick enough and if she is using a cushion, she may need a ROHO cushion. Counseled on frequent repositioning (every 15-20 minutes), off loading by standing or lying down. Suggested lying down to watch television instead of sitting. Suggested that she get up during commercial breaks to help off load and remind her to move. She verbalized understanding. She wears disposable underwear which may contribute to the issues if they are wet or she is perspiring. Encouraged good hygiene. Discussed increasing protein intake and supplementation. Ordered PT for evaluation and treatment for strengthening and ROM. She would like to go to [facility] for this because it is closer to her home. She is waiting to hear from them to schedule her appointment. Instructed her to let us know if she has not heard from them by the end of the week so we can check to see that they got the order. Follow up 2 weeks. Instructed to call or come in sooner if she develops any questions or concerns.
--- NOTE | 2023-10-30 09:14 | WC ---
PHOTO 10/29/23 RIGHT BUTTOCK/LEFT BUTTOCK
--- NOTE | 2023-10-30 09:16 | WC ---
PHOTO 10/29/23 LEFT BUTTOCK(H)
== END 2023-11-19 15:18 | disposition home or self-care (01) ==
LOC: WC 14:15
PROVIDERS: PCP Family Medicine; Referring Provider Family Medicine; Visit Provider Nurse Practitioner Family
DX: L89.323 Pressure ulcer of left buttock, stage 3 (principal); L89.313 Pressure ulcer of right buttock, stage 3; E11.9 Type 2 diabetes mellitus without complications; Z79.84 Long term (current) use of oral hypoglycemic drugs; K44.9 Diaphragmatic hernia without obstruction or gangrene; K21.9 Gastro-esophageal reflux disease without esophagitis; I10 Essential (primary) hypertension; K58.9 Irritable bowel syndrome, unspecified; Z95.0 Presence of cardiac pacemaker; N32.81 Overactive bladder
CPT/HCPCS: 11042; 97597

== ENCOUNTER 2023-11-19 14:01 | Outpatient (RCR) | payer MEDICARE, OTHER, SELFPAY ==
[2023-11-02 00:51] VITALS: BP 153/57; PULSE 75; RESP 18; TEMP 35.8; BMI 28.5
[2023-11-19 14:14] VITALS: BP 147/85; PULSE 110; RESP 18; TEMP 36.3; BMI 28.5
--- NOTE | 2023-11-19 16:16 | PCM.WC.PN ---
History of Present Illness Date of Service: 11/19/23 Chief Complaint: Pressure injury to right buttock and left buttocks pressure sores from sitting in her recliner History of Wound: Patient is an 83-year-old female presenting to the wound center for treatment of pressure injury to her right buttock and left buttocks. She has been seen here in the past for the same issues. The patient states that they have been occurring on and off for years. She admits that she sits in her recliner for long periods of time. She sits on an egg crate cushion. She states that this most recent time she feels that they reoccurred because she has been wearing Depends disposable under wear. She initially was on Jardiance, but then was changed to Farxiga for her diabetes and it makes her have issues urinating. She was having issues making it to the bathroom. She also has a history of over active bladder. She states she just recently stopped the Farxiga. She went into her PCP and was referred to the wound healing center. She has been putting over the counter cream/ointments on her ulcers. She also has used left over gel from when she was last seen her. She does not have help at home to help with her ulcer care. She has a history of Type 2 DM (HgA1c 7.7 10/02/22), pacemaker, OAB, GERD, hiatal hernia, IBS, HTN. Today she denies any fever, chills, nausea, or vomiting. Progress of Wound: Her left and right buttocks ulcers are both healed. She has been placing A&D ointment on these areas as a barrier cream. She states she has been trying to off load as much as possible. Objective Data Objective Data Vital Signs: Vital Signs Temp Pulse Resp BP 97.3 F L 110 H 18 147/85 H 11/19/23 14:14 11/19/23 14:14 11/19/23 14:14 11/19/23 14:14 Weight: 166 lb Body Mass Index (BMI) 28.5 Charges/Coding Visit Charges Office Visits / Consults: 25551 OV L3 Est 20min Physical Exam Const alert, oriented x3 and no apparent distress General Appearance: cooperative HEENT normocephalic Head and Scalp: atraumatic Eyes General Eye: normal appearance of both eyes Neck full ROM Lymph Lymphatic: no lymphedema noted Resp normal respiratory effort, normal air movement and clear to auscultation bilaterally Effort and Inspection: able to speak in complete sentences Cardio regular rate and regular rhythm Back/Spine normal ROM Extremity full ROM and normal capillary refill Skin Wound Narrative: Bilateral buttocks are healed with fragile epithelial tissue. Neuro oriented x3 Psych mental status grossly normal and cooperative Psych Narrative: Very talkative. Assessment/Plan Assessment/Plan (1) Stage III pressure ulcer of right buttock: CODE(S): L89.313 - Pressure ulcer of right buttock, stage 3 (2) Stage III pressure ulcer of left buttock: CODE(S): L89.323 - Pressure ulcer of left buttock, stage 3 (3) Type 2 diabetes mellitus: CODE(S): E11.9 - Type 2 diabetes mellitus without complications QUALIFIERS: Diabetes mellitus intermission coordinator insulin use: without intermission coordinator use Diabetes mellitus complication status: with circulatory complication Diabetes mellitus complication detail: with other circulatory complications Qualified Code(s): E11.59 - Type 2 diabetes mellitus with other circulatory complications (4) Overactive bladder: CODE(S): N32.81 - Overactive bladder (5) Complaint of debility and malaise: CODE(S): R53.81 - Other malaise PLAN: Plan Patient evaluated at the wound healing center today. Bilateral buttocks are healed today. She should continue to place A&D ointment 1-2 x per day and as needed to both areas. Since she wears disposable briefs, she needs to continue to use a barrier cream. Encouraged to continue to off load as much as possible. Patient admits to sitting for long periods of time. She states that she had been using an egg crate foam cushion. Stressed concern that the egg crate is not thick enough and if she is using a cushion, she may need a ROHO cushion. Counseled on frequent repositioning (every 15-20 minutes), off loading by standing or lying down. Suggested lying down to watch television instead of sitting. She has not gone to PT. She feels she can do it herself. Follow up as needed. Instructed to call or come in sooner if she develops any questions or concerns.
== END 2023-11-19 15:19 | disposition home or self-care (01) ==
LOC: WC 14:01
PROVIDERS: PCP Family Medicine; Referring Provider Family Medicine; Visit Provider Nurse Practitioner Family
DX: Z09 Encounter for follow-up examination after completed treatment for conditions other than malignant neoplasm (principal); E11.59 Type 2 diabetes mellitus with other circulatory complications; K58.9 Irritable bowel syndrome, unspecified; Z79.84 Long term (current) use of oral hypoglycemic drugs; Z95.0 Presence of cardiac pacemaker; K44.9 Diaphragmatic hernia without obstruction or gangrene; I10 Essential (primary) hypertension; N32.81 Overactive bladder; R53.81 Other malaise; K21.9 Gastro-esophageal reflux disease without esophagitis
CPT/HCPCS: 99213; G0463

== ENCOUNTER → 2024-01-08 | Outpatient (CLI) | payer MEDICARE, OTHER, SELFPAY ==
[2024-01-08 18:20] LABS: ALB/GLOB Ratio 0.8 RATIO (0.9-2.4); AST(SGOT) 10 U/L (15-37); Alanine Aminotransfer ALT/SGPT 18 U/L (13-56); Albumin, Serum 3.4 g/dL (3.2-5.0); Alkaline Phosphatase 84 U/L (45-117); Anion Gap 7 (5-15); BUN 28 mg/dL (7-18); BUN/Creat Ratio 27.7 RATIO (10-20); Calcium,Total 9.1 mg/dL (8.5-10.1); Chloride 112 mmol/L (98-107); Cholesterol 179 mg/dL (200); Creatinine, Serum 1.01 mg/dL (0.55-1.02); EST Glomerular Filtration Rate 55 mL/min (>60); Est Glom Filt Rate - Afr Amer 67 mL/min (>60); Globulin 4.1 g/dL (2.2-4.2); Glucose 160 mg/dL (74-106); High Density Lipoprotein 42 mg/dL; Potassium 4.2 mmol/L (3.5-5.1); Protein, Total 7.5 g/dL (6.4-8.2); Sodium Level 139 mmol/L (136-145); Triglycerides 230 mg/dL; Very Low Density Lipoprotein 46 mg/dL (5-40)
== END | disposition home or self-care (01) ==
LOC: MFPLAB 14:13
PROVIDERS: PCP Family Medicine; Visit Provider Family Medicine
DX: E11.69 Type 2 diabetes mellitus with other specified complication (principal)
CPT/HCPCS: 36415; 80053; 80061

== ENCOUNTER → 2024-02-06 | Outpatient (CLI) | payer MEDICARE, OTHER, SELFPAY ==
[2024-02-06 17:27] LABS: Absolute Lymphocyte Count 1.99 X10^3/uL (0.83-4.51); Basophil# 0.06 X10^3/uL; Basophil% 0.6 % (0-1); Eosinophil# 0.12 X10^3/uL; Eosinophils% 1.1 % (0-5); Hematocrit 34.8 % (37-47); Hemoglobin 11.3 g/dL (12.0-15.0); Lymphocyte # 1.99 X10^3/ul (0.83-4.51); Lymphocyte % 18.3 % (19-41); Mean Corp Hgb Conc 32.5 g/dL (32-36); Mean Corpuscular Hgb 30.3 pg (27.0-32.0); Mean Corpuscular Volume 93.3 fL (81-99); Mean Platelet Vol. 11.7 fl (6.2-12.0); Monocyte# 0.63 X10^3/uL; Monocyte% 5.8 % (0-10); NRBC Flagged by Analyzer 0 % (0-5); Neutrophil # 8.04 X10^3/uL (2.7-7.7); Neutrophil % 73.6 % (47-70); Platelet Count 381 K/mm3 (150-450); RBC Distribution Width CV 12.3 % (11.6-14.6); RBC Distribution Width SD 42.2 fl (35.1-43.9); Red Blood Count 3.73 M/mm3 (4.2-5.4); White Blood Count 10.9 K/mm3 (4.4-11.0)
[2024-02-06 17:35] LABS: Anion Gap 5 (5-15); BUN 32 mg/dL (7-18); BUN/Creat Ratio 31.1 RATIO (10-20); Calcium,Total 9.5 mg/dL (8.5-10.1); Chloride 112 mmol/L (98-107); Creatinine, Serum 1.03 mg/dL (0.55-1.02); EST Glomerular Filtration Rate 54 mL/min (>60); Est Glom Filt Rate - Afr Amer 65 mL/min (>60); Glucose 167 mg/dL (74-106); Potassium 4.8 mmol/L (3.5-5.1); Sodium Level 139 mmol/L (136-145)
== END | disposition home or self-care (01) ==
LOC: MFPLAB 14:25
PROVIDERS: PCP Family Medicine; Referring Provider Family Medicine; Visit Provider Family Medicine
DX: Z01.818 Encounter for other preprocedural examination (principal)
CPT/HCPCS: 36415; 80048; 85025

== ENCOUNTER → 2024-04-09 | Outpatient (CLI) | payer MEDICARE, OTHER, SELFPAY ==
[2024-04-09 18:18] LABS: ALB/GLOB Ratio 0.8 RATIO (0.9-2.4); AST(SGOT) 12 U/L (15-37); Alanine Aminotransfer ALT/SGPT 20 U/L (13-56); Albumin, Serum 3.3 g/dL (3.2-5.0); Alkaline Phosphatase 90 U/L (45-117); Anion Gap 8 (5-15); BUN 48 mg/dL (7-18); BUN/Creat Ratio 37.2 RATIO (10-20); Calcium,Total 9.1 mg/dL (8.5-10.1); Chloride 114 mmol/L (98-107); Cholesterol 166 mg/dL (200); Creatinine, Serum 1.29 mg/dL (0.55-1.02); EST Glomerular Filtration Rate 42 mL/min (>60); Est Glom Filt Rate - Afr Amer 50 mL/min (>60); Glucose 234 mg/dL (74-106); High Density Lipoprotein 42 mg/dL; Potassium 4.6 mmol/L (3.5-5.1); Protein, Total 7.3 g/dL (6.4-8.2); Sodium Level 138 mmol/L (136-145); Triglycerides 200 mg/dL; Very Low Density Lipoprotein 40 mg/dL (5-40)
== END | disposition home or self-care (01) ==
LOC: MFPLAB 14:42
PROVIDERS: PCP Family Medicine; Referring Provider Family Medicine; Visit Provider Family Medicine
DX: E11.69 Type 2 diabetes mellitus with other specified complication (principal); E66.9 Obesity, unspecified
CPT/HCPCS: 36415; 80053; 80061